=== PATIENT | female | born 1990 | race Caucasian/White ===

== ENCOUNTER 2020-01-17 21:41 | Emergency (ER) | payer OTHER, SELFPAY ==
[2020-01-17 21:56] VITALS: BP 93/72; PULSE 98; RESP 16; TEMP 36.6; O2SAT 98
--- NOTE | 2020-01-17 22:10 | ED_ITS ---
HPI - Skin/Abscess/Foreign Bdy General Chief complaint: Skin/Abscess/Foreign Body Stated complaint: ?INSECT BITE Time Seen by Provider: 01/17/20 22:09 Source: patient Mode of arrival: ambulatory Limitations: no limitations History of Present Illness HPI narrative: 29-year-old female presents with a bull's eye rash to the left calf. Rash started yesterday, is painful and growing in size. She did not find an insect or tick at the site But suspects that it could be an insect bite. She does not describe any injury, denies chest pain or pressure, palpitations, shortness breath, fevers, chills, any other concerning symptoms. MD complaint: rash and insect bite/sting Onset (ago): day(s) (1) Tetanus up to date: yes Location: LLE Severity: mild Severity scale (1-10): 3 Quality: aching Pain Consistency: constant Relieving factors: none Exacerbating factors: palpation and movement Associated symptoms: denies other symptoms Treatments prior to arrival: OTC topical medication and NSAID Related Data Previous Rx's Medication Instructions Recorded amoxicillin-pot clavulanate 1 tab PO Q12H 5 Days #10 tab 01/17/20 [Augmentin] doxycycline monohydrate 100 mg PO BID 14 Days #28 cap 01/17/20 Allergies Allergy/AdvReac Type Severity Reaction Status Date / Time No Known Allergies Allergy Unverified 12/13/19 17:29 Review of Systems Review of Systems: Constitutional: No Weight loss, No Fever, No Chills, No Night Sweats, No Fatigue, No Malaise ENT/Mouth: No Hearing loss, No Ear Pain, No Nasal Congestion, No Sinus Pain, No Hoarseness, No sore throat, No Rhinorrhea, No Swallowing Difficulty Eyes: No Eye Pain, No Swelling, No Redness, No Foreign Body, No Discharge, No Vision Changes Cardiovascular: No Chest Pain, No SOB, No Dyspnea on Exertion, No Orthopnea, No Edema, No Palpitations Respiratory: No Cough, No Sputum, No Wheezing, No Smoke Exposure, No Dyspnea Gastrointestinal: No Nausea, No Vomiting, No Diarrhea, No Constipation, No abdominal Pain, No Hematochezia, No Melena Genitourinary: no irregular bleeding, No Dysuria, No Urinary Frequency, No Hematuria, No Urinary Incontinence, No Urgency, No Flank Pain, No Urinary Flow Changes, No Hesitancy Musculoskeletal: No joint pain, No Myalgias, No Joint Swelling Skin: positive rash to her left lower extremity, No Skin Lesions Neuro: No Weakness, No Numbness, No Paresthesias, No Loss of Consciousness, No Dizziness, No Headache Psych: No Anxiety/Panic, No Depression, No SI/HI/AH/VH, No Social Issues Heme/Lymph: No Bruising, No Bleeding,No Lymphadenopathy Endocrine: No Polyuria, No Polydipsia, No Temperature Intolerance Yes all other systems are reviewed and are negative [facility] Past Medical History Attestation statement: The following information was validated with the patient. Surgical History Hx of section Hx of eye surgery Family History Family History Other No family history of breast cancer Social History Social History Smoking Status: Never smoker Use of substances other than those prescribed or required for medical reasons: No Advance Directives: No Physical Exam Vital Signs: Vital Signs: Vital Signs Temp Pulse Resp BP Pulse Ox 01/17/20 22:15 97.9 F 98 16 93/72 98 01/17/20 21:56 97.9 F 98 16 93/72 98 Body Mass Index 31.9 Appearance: Alert. Oriented X3. No acute distress. Eyes: Pupils equal, round and reactive to light. ENT: Pharynx normal. Neck: Normal inspection. Neck supple. CVS: Normal heart rate and rhythm. Pulses normal. Respiratory: No respiratory distress. Breath sounds normal. Abdomen: Soft and nontender. Skin: bull's-eye rash to left lower extremity approximately 10 cm in diameter. Otherwise all other Skin warm and dry. Normal skin color. Normal skin turgor. Extremities: No lower extremity edema. Neuro: No motor deficit. No sensory deficit. Course Course Course Narrative: patient has a bull's eyes rash, we will treat for suspected Lyme however she did not see a tick on her body. A bull's eye rash is classic for Lyme disease, we will cover with doxycycline and Augmentin. Patient does understand that if the rash gets worse that she should return to either her primary care physician or other healthcare provider for evaluation. She does understand the risks of doxycycline and sun exposure, patient verbalized understanding of and agrees to plan of care to discharge home. MDM - Skin/Abscess/Foreign Bdy Differential Diagnosis Differential diagnosis: Likely abscess of skin or subcutaneous tissue, urticaria, cellulitis, insect bites and contact dermatitis Medical Records Attestation: I reviewed the patient's medical records. Discharge Plan Discharge Clinical Impression: Cellulitis, Abscess of skin or subcutaneous tissue Patient Disposition: Home, Self-Care Instructions: Cellulitis (ED), Abscess (ED) Additional Instructions: please take antibiotics as prescribed. Doxycycline has a significant skin reaction with sun exposure. Please wear a hat, sunscreen, and long sleeves. If symptoms persist or wound gets larger or changes please return to the emergency department immediately. Thank you for choosing this emergency department for evaluation. Please follow-up with primary care physician as needed. Return to the emergency department for any new, concerning, or worsening symptoms. Prescriptions: New doxycycline monohydrate 100 mg capsule 100 mg PO BID 14 Days Qty: 28 RF: 0 amoxicillin-pot clavulanate [Augmentin] 875-125 mg tablet 1 tab PO Q12H 5 Days Qty: 10 RF: 0 Interventions: ED Discharge Assessment Last Done: 01/17/20 22:33 Discharge Date/Time: 01/17/20 22:38
[2020-01-17 22:15] VITALS: BP 93/72; PULSE 98; RESP 16; TEMP 36.6; O2SAT 98; BMI 31.9
[2020-01-17] MEDS: Amoxicillin/Potassium Clav 875 MG TABLET PO (22:33)
== END 2020-01-17 22:38 | disposition home or self-care (01) ==
PROVIDERS: Emergency Provider Emergency Medicine; PCP Internal Medicine
DX: L03.116 Cellulitis of left lower limb (principal); M79.605 Pain in left leg; Z79.899 Other long term (current) drug therapy
CPT/HCPCS: 99283

== ENCOUNTER 2020-09-24 16:37 | Outpatient (REF) | payer OTHER, SELFPAY ==
[2020-09-24 17:48] LABS: Glucose Urine UA NEG (NEG); Leukocyte Esterase Urine 1+ (NEG); Nitrite Urine NEG (NEG); UACC Culture Trigger YES; Urine Blood 2+ (NEG); Urine Ketones NEG (NEG); Urine Protein 1+ MG/DL (NEG-TRACE)
[2020-09-24 17:51] LABS: Color Urine YELLOW
[2020-09-24 17:52] LABS: Appearance Urine HAZY
[2020-09-24 18:10] LABS: Bacteria Urine TRACE /LPF; Mucus Urine TRACE /LPF; Renal Epithelial Cells Urine TRACE /LPF; Squamous Epithelial Cell Urine TRACE /LPF
== END 2020-09-24 16:38 | disposition home or self-care (01) ==
LOC: HO.LAB 16:37
PROVIDERS: Internal Medicine; PCP Internal Medicine; Visit Provider Internal Medicine
DX: R35.0 Frequency of micturition (principal)
CPT/HCPCS: 81001; 81003; 87086

== ENCOUNTER 2021-06-23 08:52 | Emergency (ER) | payer OTHER, SELFPAY ==
--- NOTE | ~2021-06-23 | XR_ITS ---
EXAMINATION: XR KNEE, LEFT CLINICAL INFORMATION: Injured knee on a trampoline COMPARISON: None TECHNIQUE: Four views of the left knee. FINDINGS: Bone alignment is normal. No fracture or dislocation is seen. Joint spaces are normal. There is a moderate-sized joint effusion. XR/XR knee LT 4V IMPRESSION: Moderate-size joint effusion.
[2021-06-23 09:47] VITALS: BP 107/71; PULSE 95; RESP 18; O2SAT 100; BMI 28.8
--- NOTE | 2021-06-23 11:53 | ED_ITS ---
HPI - Extremity Injury (Lower) General Chief Complaint: Extremity Injury, Lower Stated Complaint: knee INJ Time Seen by Provider: 06/23/21 11:44 Source: patient Mode of arrival: wheelchair Limitations: no limitations History of Present Illness HPI Narrative: Patient is a 31-year-old female with past medical history of hyperthyroidism, migraines, obesity. She presents emergency department today for evaluation of left knee pain. [place] are [place] [employer] [place] she was jumping and felt that her knee buckled and she fell. States that since she has been unable to really bear weight on her left leg, her left knee is swollen and feels like it is going to pop. She has not taken anything yet for the pain. Denies any past injury of the knee. Related Data Home Medications Medication Instructions Recorded Confirmed amoxicillin 500 mg capsule 500 mg PO Q8H 04/21/20 04/21/20 levonorgestrel 20 mcg/24 hours (7 1 device INTRAUTERINE ONCE ea 04/21/20 04/21/20 yrs) 52 mg intrauterine device Previous Rx's Medication Instructions Recorded amoxicillin 875 mg tablet 875 mg PO BID 10 Days #20 tab 05/01/20 naproxen 500 mg tablet 500 mg PO BID PRN 10 Days tab 06/23/21 oxycodone 5 mg capsule 5 mg PO Q8H PRN #10 cap 06/23/21 Allergies Allergy/AdvReac Type Severity Reaction Status Date / Time No Known Allergies Allergy Verified 04/21/20 14:04 Review of Systems Review of Systems: Constitutional: No weight loss, fever, chills, weakness or fatigue. Skin: No rash or itching. Cardiovascular: No chest pain, chest pressure or chest discomfort. No palpitations or pedal edema. Respiratory: No shortness of breath, cough or sputum production. Gastrointestinal: No anorexia, nausea, vomiting or diarrhea. No abdominal pain or blood in stool. Genitourinary: No burning micturition. No urinary frequency or incontinence. Musculoskeletal: Left knee pain, swelling, stiffness Psychiatric: No depression or anxiety. Yes all other systems are reviewed and are negative PMFSH Past Medical History Attestation statement: The following information was validated with the patient. Source: old records reviewed Medical History Attention deficit hyperactivity disorder (ADHD) Closed fracture of tooth Hyperthyroidism Migraine Obesity (BMI 30-39.9) Surgical History Hx of section Hx of eye surgery Family History Family History Father Hypertension HIV (human immunodeficiency virus infection) Chronic mental illness Diabetes Mother Hypertension Chronic mental illness Depression with anxiety Maternal Grandmother Hypertension Arthritis Maternal Grandfather Hypertension Myocardial infarction Paternal Grandmother Diabetes Osteoporosis Paternal Grandfather Hypertension Alzheimers disease Other No family history of breast cancer Social History Social History Alcohol intake: former Advance Directives: No Advance Directives Information Provided: No Patient : No Physical Exam Vital Signs: Vital Signs: Last Vital Signs Pulse 95 06/23/21 09:47 Resp 18 06/23/21 09:47 BP 107/71 06/23/21 09:47 Pulse Ox 100 06/23/21 09:47 BMI result Body Mass Index 28.8 Vital signs have been reviewed as normal and appeared to be correct. Blood pressure normal.? Heart rate normal.? Respiration rate normal. Temperature normal.? Oxygen saturation normal. Appearance: Alert.?Oriented to person, place and time. No acute distress.?Normal affect. Eyes: Pupils equal, round and reactive to light.? ENT: Pharynx normal.?? Neck: Normal inspection.? Neck supple.?? CVS: Heart sounds normal. Normal heart rate and rhythm.? Pulses normal.?? Respiratory: No respiratory distress.? Lung sounds clear to auscultation bilaterally?? Abdomen: Soft and non-tender. Skin: Skin warm and dry.? Normal skin color.? ?? Extremities/ MSK: Effusion present to left knee, diffuse tenderness of the leg, palpable 2+ DP/PT pulse. Difficulty examining stability of the knee with maneuvers due to pain and swelling. Neuro: Moves all extremities spontaneously. Sensation intact bilaterally. No focal neuro deficits. Ambulates with normal steady gait. Course Course Course Narrative: Patient is a 31-year-old female being evaluated for left knee pain and swelling after a fall. There was difficulty obtaining the left knee for stability within overs due to the amount pain and swelling. Upon attempting to ambulate she is very hesitant to bear weight. Decreased AROM to left knee. XR of the knee obtained in addition to triage reveals a moderate-sized joint effusion no fracture or dislocation. Patient provided with naproxen and Tylenol for pain. Discussed results. Will apply [place] bandage for compression, knee immobilizer, and use of crutches. Cannot exclude ligament, meniscus, or tendon injury, based on exam do not suspect muscle rupture. Patient to follow-up outpatient with Orthopedic, provided with a work note for 1 week. Naproxen and oxycodone for pain management, rest, ice, compression, elevation. Discussed reasons to return back to the emergency department. Patient is agreeable with plan of care. MDM - Extremity Injury (Lower) Medical Records Attestation: I reviewed the patient's medical records. Imaging Data XR left knee: Radiologist's impression: FINDINGS: Bone alignment is normal. No fracture or dislocation is seen. Joint spaces are normal. There is a moderate-sized joint effusion.? XR/XR knee LT 4V IMPRESSION: Moderate-size joint effusion. Discharge Plan Discharge Clinical Impression: Effusion of knee joint Patient Disposition: Home, Self-Care Instructions: Swollen Knee Joint (ED) Additional Instructions: The x-ray of your left knee does not indicate any fracture or dislocation. There is a joint effusion present. Please keep the [place] wrap in place for compression, use the knee immobilizer with crutches. Weightbearing as tolerate d. Use naproxen twice daily as needed for pain, if the naproxen is not helping you may use oxycodone. Please use caution when taking oxycodone as it is a narcotic medication, it can be addicting, it may make you drowsy therefore you should not drive or work while taking this medication. Please contact Orthopedics to schedule a follow-up visit in 2-5 days. You may return to the emergency department with any new or worsening symptoms or concerns. Prescriptions: New naproxen 500 mg tablet 500 mg PO BID PRN (Reason: pain) 10 Days 0RF oxycodone 5 mg capsule 5 mg PO Q8H PRN (Reason: pain) Qty: 10 0RF Rx Instructions: Patient may partially fill upon request No Action amoxicillin 500 mg capsule 500 mg PO Q8H 0RF levonorgestrel 20 mcg/24 hours (6 yrs) 52 mg intrauterine device 1 device intrauterine ONCE 0RF amoxicillin 875 mg tablet 875 mg PO BID 10 Days Qty: 20 0RF Referrals: Nancy Parekh PA-C [Physician Compression Molding Machine Tender] - 2 days Stand Alone Forms: Work/School Release Interventions: ED Discharge Assessment Last Done: 06/23/21 13:03 Discharge Date/Time: 06/23/21 13:03
[2021-06-23] MEDS: NaPROXEN 500 MG TABLET PO (12:04)
[2021-06-23] MEDS: Acetaminophen 325 MG TABLET 975 MG PO (12:05)
== END 2021-06-23 13:03 | disposition home or self-care (01) ==
PROVIDERS: Emergency Provider Emergency Medicine; PCP Internal Medicine
DX: M25.462 Effusion, left knee (principal); M25.562 Pain in left knee
CPT/HCPCS: 73564; 99283

== ENCOUNTER 2021-06-30 08:46 | Outpatient (REF) | payer OTHER, SELFPAY ==
--- NOTE | ~2021-06-30 | XR_ITS ---
EXAMINATION: LEFT KNEE CLINICAL INFORMATION: Pain COMPARISON: None TECHNIQUE: A single sunrise view. FINDINGS: A single sunrise view of the left knee reveals midline patella without any bony erosive changes. No visible acute fracture or dislocation. No loose body seen. XR/XR knee LT 1V IMPRESSION: Unremarkable sunrise view left knee.
== END 2021-06-30 08:47 | disposition home or self-care (01) ==
LOC: HO.HOSX 08:46
PROVIDERS: PCP Internal Medicine; Visit Provider Physician Assistant
DX: M25.462 Effusion, left knee (principal)
CPT/HCPCS: 20610; 73560; 99202

== ENCOUNTER → 2021-07-07 11:34 | Outpatient (BNVA) | payer OTHER, SELFPAY | PROVIDERS: PCP Internal Medicine; Visit Provider Physician Assistant | DX: M23.92 Unspecified internal derangement of left knee (principal) | CPT/HCPCS: 99212 ==

== ENCOUNTER 2021-07-27 09:29 | Outpatient (REF) | payer OTHER, SELFPAY ==
[2021-07-27 16:06] LABS: CT PCR NOT DETECTED (Not Detect.); NG PCR NOT DETECTED (Not Detect.)
[2021-07-28 10:50] LABS: BV Int Neg Control Negative (Negative); BV Int Pos Control Positive (Positive)
== END 2021-07-27 09:30 | disposition home or self-care (01) ==
LOC: HO.LAB 09:29
PROVIDERS: PCP Internal Medicine; Visit Provider Advanced Practice Midwife
DX: N89.8 Other specified noninflammatory disorders of vagina (principal); N92.1 Excessive and frequent menstruation with irregular cycle; Z97.5 Presence of (intrauterine) contraceptive device
CPT/HCPCS: 87480; 87491; 87510; 87591; 87660; 99212

== ENCOUNTER 2021-08-10 11:26 | Outpatient (REF) | payer OTHER, SELFPAY ==
--- NOTE | ~2021-08-10 | MR_ITS ---
EXAMINATION: MR KNEE WITHOUT CONTRAST, LEFT CLINICAL INFORMATION: Left knee pain following an injury on 06/23/2021. Evaluate for an anterior cruciate ligament injury. COMPARISON: Left knee radiographs dated 06/23/2021 and 06/30/2021. TECHNIQUE: MRI of the knee without contrast was performed using routine sequences on a high-field scanner. FINDINGS: MENISCI: Medial Meniscus: Nondisplaced oblique tibial articular surface tear of the posterior body and posterior horn. Lateral Meniscus: Intact. LIGAMENTS: Cruciate: Complete tear of the anterior cruciate ligament with anterior displacement of the distal ligament fibers. Intact posterior cruciate ligament. Collateral: Minimal edema adjacent to the medial collateral ligament consistent with a grade 1 sprain. Intact fibular collateral ligament. EXTENSOR MECHANISM: Intact. ARTICULAR CARTILAGE/BONE: Patellofemoral Compartment: Normal. Medial Compartment: Focal marrow edema within the posterior aspect of the medial tibial plateau consistent with a minimal osseous contusion. Lateral Compartment: Intact articular cartilage. Marrow edema at the sulcus terminalis and posterior lateral tibial plateau consistent with osseous contusions. JOINT FLUID AND BURSAE: Moderate joint effusion. MR/MR knee LT wo con IMPRESSION: 1. Complete tear of the anterior cruciate ligament with distal displacement of the anterior ligament fibers. 2. Grade 1 sprain of the medial collateral ligament. 3. Nondisplaced oblique tibial articular surface tear of the medial meniscus posterior horn and body. 4. Osseous contusions at the sulcus terminalis as well as at the posterior aspect of the lateral tibial plateau as well as, to a lesser degree, at the medial tibial plateau. Moderate joint effusion.
== END 2021-08-10 11:27 | disposition home or self-care (01) ==
LOC: HO.MRI 11:26
PROVIDERS: Visit Provider Physician Assistant
DX: S83.512A Sprain of anterior cruciate ligament of left knee, initial encounter (principal); M23.92 Unspecified internal derangement of left knee
CPT/HCPCS: 73721

== ENCOUNTER 2021-08-14 10:30 | Outpatient (REF) | payer OTHER, SELFPAY ==
[2021-08-14 17:12] LABS: CT PCR NOT DETECTED (Not Detect.); NG PCR NOT DETECTED (Not Detect.)
[2021-08-15 13:51] LABS: BV Int Neg Control Negative (Negative); BV Int Pos Control Positive (Positive)
== END 2021-08-14 10:31 | disposition home or self-care (01) ==
LOC: HO.LAB 10:30
PROVIDERS: PCP Internal Medicine; Visit Provider Advanced Practice Midwife
DX: N92.1 Excessive and frequent menstruation with irregular cycle (principal); N76.0 Acute vaginitis; B96.89 Other specified bacterial agents as the cause of diseases classified elsewhere; Z97.5 Presence of (intrauterine) contraceptive device
CPT/HCPCS: 87480; 87491; 87510; 87591; 87660; 99212

== ENCOUNTER → 2021-08-17 13:32 | Outpatient (BNVA) | payer OTHER, SELFPAY | PROVIDERS: PCP Internal Medicine; Visit Provider Orthopaedic Surgery | DX: S83.207D Unspecified tear of unspecified meniscus, current injury, left knee, subsequent encounter (principal); S83.512D Sprain of anterior cruciate ligament of left knee, subsequent encounter | CPT/HCPCS: 99202 ==

== ENCOUNTER 2021-10-05 10:26 | Outpatient (REF) | payer OTHER, SELFPAY ==
[2021-10-05 12:17] LABS: HBc Num1 0.06 S/CO (0.00-0.79); HIV AB/AG Nonreactive (Nonreactive); HIV Num 1 0.09 S/CO (0.00-0.99); Hepatitis B Core Antibody Nonreactive (Nonreactive); ~HepC Num1 0.07 S/CO (0.00-0.79); ~Hepatitis C Antibody Nonreactive (Nonreactive)
[2021-10-05 12:36] LABS: Syphilis Screen Nonreactive (Nonreactive)
[2021-10-05 15:06] LABS: CT PCR NOT DETECTED (Not Detect.); NG PCR NOT DETECTED (Not Detect.)
[2021-10-06 12:27] LABS: BV Int Neg Control Negative (Negative); BV Int Pos Control Positive (Positive)
== END 2021-10-05 10:27 | disposition home or self-care (01) ==
LOC: HO.LAB 10:26
PROVIDERS: PCP Internal Medicine; Visit Provider Advanced Practice Midwife
DX: Z01.419 Encounter for gynecological examination (general) (routine) without abnormal findings (principal); R10.2 Pelvic and perineal pain; N89.8 Other specified noninflammatory disorders of vagina; Z11.3 Encounter for screening for infections with a predominantly sexual mode of transmission; Z11.8 Encounter for screening for other infectious and parasitic diseases; Z11.4 Encounter for screening for human immunodeficiency virus [HIV]; Z11.59 Encounter for screening for other viral diseases
CPT/HCPCS: 36415; 86704; 86780; 86803; 87389; 87480; 87491; 87510; 87591; 87660; 88142

== ENCOUNTER 2022-01-28 14:26 | Outpatient (REF) | payer OTHER, SELFPAY ==
--- NOTE | ~2022-01-28 | US_ITS ---
EXAMINATION: US PELVIS AND TRANSVAGINAL CLINICAL INFORMATION: Right lower quadrant pain. IUD placement March 2021. Unknown last menstrual period. COMPARISON: CT scan abdomen and pelvis 09/01/2015, ultrasound 12/09/2014. TECHNIQUE: Transabdominal and transvaginal ultrasound images were obtained of the pelvis. FINDINGS: The uterus is heterogeneous and measures 10.6 x 4.4 x 4.8 cm. No discrete fibroids are identified. IUD was best visualized on transabdominal images and is in place within the endometrial cavity. The IUD was difficult to assess on transvaginal images due to uterine positioning and body habitus. No significant free fluid. Bilateral ovaries were seen only on transabdominal ultrasound images and are grossly unremarkable. Right ovary measures 4.6 x 1.9 x 3.0 cm, volume 13.7 mL. Left ovary measures 2.4 x 1.1 x 2.7 cm, volume 3.7 mL. US/US pelvic and transvaginal IMPRESSION: IUD appears to be located within the endometrial cavity on transabdominal ultrasound images, but was difficult to assess on transvaginal ultrasound images due to uterine positioning. Bilateral ovaries were seen only on limited transabdominal ultrasound images and are grossly unremarkable. Ovaries were not seen on transvaginal ultrasound images. Endometrial thickness could not be assessed due to artifact from IUD and limited visualization as detailed above.
== END 2022-01-28 14:27 | disposition home or self-care (01) ==
LOC: HO.HMGCX 14:26
PROVIDERS: PCP Internal Medicine; Visit Provider Advanced Practice Midwife
DX: R10.2 Pelvic and perineal pain (principal)
CPT/HCPCS: 76830; 76856

== ENCOUNTER → 2022-02-08 13:15 | Outpatient (BNVA) | payer OTHER, SELFPAY | PROVIDERS: PCP Internal Medicine; Visit Provider Advanced Practice Midwife | DX: Z71.2 Person consulting for explanation of examination or test findings (principal); R10.2 Pelvic and perineal pain; N89.8 Other specified noninflammatory disorders of vagina | CPT/HCPCS: 99212 ==

== ENCOUNTER 2022-03-28 22:17 | Emergency (ER) | payer OTHER, SELFPAY ==
[2022-03-28 22:30] VITALS: BP 114/63; PULSE 82; RESP 16; TEMP 36.9; O2SAT 99; BMI 32.1
--- NOTE | 2022-03-28 22:39 | ED_ITS ---
HPI - Allergic Reaction General Chief complaint: Allergic Reaction Stated complaint: hives on face ? med allergy Time Seen by Provider: 03/28/22 22:38 Source: patient Mode of arrival: ambulatory Limitations: no limitations History of Present Illness HPI narrative: 31 yo female presents to the ER for evaluation of hives on her face after starting flagyl today for presumed BV. She states she has a history of BV in the past and was on flagyl for it. She had left over antibiotic and started it this morning when she noticed her urine smelt like it did last time she had bacterial vaginosis. She denies any abnormal vaginal discharge, pelvic pain, N/V or abdominal pain. She reports shortly after taking the flagyl she developed red, hot, itchy patches on her face. She states initially it felt like her throat was tight but that is now improved. She took a nap this afternoon and woke up with slightly worsening rash so she came to the ER for further evaluation. No history of allergic reactions of any kind in the past. MD complaint: allergic reaction, hives and facial swelling Onset (ago): hour(s) Exposure: medication Symptoms: rash, itching and facial swelling Severity: moderate Treatment prior to arrival: none Previous Allergic Reaction History: none Related Data Home Medications Medication Instructions Recorded Confirmed levonorgestrel 20 mcg/24 hours (8 1 device intrauterine ONCE 04/21/20 08/14/21 yrs) 52 mg intrauterine device Previous Rx's Medication Instructions Recorded metronidazole 500 mg tablet 500 mg PO Q12H 7 days #14 tabs 02/08/22 diphenhydramine HCl 25 mg capsule 50 mg PO TID PRN allergic reaction 03/28/22 (Benadryl) #30 caps nitrofurantoin 100 mg PO Q12H 5 days #10 caps 03/28/22 monohydrate/macrocrystals 100 mg capsule (Macrobid) prednisone 20 mg tablet 40 mg PO DAILY #6 tabs 03/28/22 Allergies Allergy/AdvReac Type Severity Reaction Status Date / Time No Known Allergies Allergy Verified 02/08/22 13:20 Review of Systems Review of Systems: Yes all other systems are reviewed and are negative [facility] Past Medical History Medical History Attention deficit hyperactivity disorder (ADHD) Closed fracture of tooth Hyperthyroidism Migraine Obesity (BMI 30-39.9) Surgical History Hx of section Hx of eye surgery Family History Family History Father Hypertension HIV (human immunodeficiency virus infection) Chronic mental illness Diabetes Mother Hypertension Chronic mental illness Depression with anxiety Maternal Grandmother Hypertension Arthritis Maternal Grandfather Hypertension Myocardial infarction Paternal Grandmother Diabetes Osteoporosis Paternal Grandfather Hypertension Alzheimers disease Other No family history of breast cancer Social History Social History Alcohol intake: former Advance Directives: No Advance Directives Information Provided: No Current occupational status: employed 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 Oriented X3. No acute distress. Head/face: patchy, erythematous warm and slightly raised patches scattered all over the face. Eyes: Pupils equal, round and reactive to light. ENT: Pharynx normal. no swelling of the lips or tongue. handling secretions normally. airway patent. Neck: Normal inspection. Neck supple. no neck swelling CVS: Normal heart rate and rhythm. Pulses normal. Respiratory: No respiratory distress. Breath sounds normal. Abdomen: Soft and nontender. +BS x4 Pelvic: normal external inspection, no lesions. Normal vaginal canal with trace thin, white vaginal discharge, normal appearing cervix. Nontender. Skin: Skin warm and dry. Normal skin color. Normal skin turgor. No rashes. Extremities: Normal inspection x4 no rash on her extremities Neuro: Oriented X 3. nonfocal Course Course Course Narrative: 31 yo female presenting to the ER for hives on her face after taking flagyl earlier today for possible BV. No airway involvement. Will give PO benadryl, prednisone and claritin and reassess. will do pelvic exam and assess for BV. will check UA and Upreg. Reevaluation(s) Reevaluation #1: pelvic with minimal vaginal discharge, doubt BV. Advised to stop Flagyl. UA is positive for infection. Will treat with Macrobid. Facial rash is slightly improved. Will discharge with few more days of prednisone and Benadryl for allergic reaction. Patient stable for discharge home, questions were answered. Medications Administered Discontinued Medications Generic Name Dose Route Start Last Admin Trade Name Lemeul PRN Reason Stop Dose Admin Diphenhydramine HCl 50 mg 03/28/22 22:46 03/28/22 22:57 Diphenhydramine Hcl 25 Mg Capsule PO 03/28/22 22:47 50 mg ONCE ONE Administration Famotidine 20 mg 03/28/22 22:46 03/28/22 22:57 Famotidine 20 Mg Tablet PO 03/28/22 22:47 20 mg ONCE ONE Administration Prednisone 50 mg 03/28/22 22:46 03/28/22 22:57 Prednisone 10 Mg Tablet PO 03/28/22 22:47 50 mg ONCE ONE Administration Medical Decision Making Differential Diagnosis Differential Diagnoses: The differential diagnosis associated with the presentation includes Allergic reaction, angioedema, eczema, urticaria, BV, PID, UTI, Lab Data MDM Lab Attestation statement: I reviewed the patient's lab results. Labs: Lab Results 03/28/22 03/28/22 Range/Units 23:20 23:20 Urine Color Yellow Urine Appearance Cloudy Urine pH 7.0 (5.0-9.0) Ur Specific [place] 1.015 (1.005-1.025) Urine Protein Negative (Neg-Trace) mg/dL Urine Glucose (UA) Negative (Negative) mg/dL Urine Ketones Negative (Negative) mg/dL Urine Blood Trace H (Negative) Urine Nitrite Negative (Negative) Ur Leukocyte Esterase Large (3+) H (Negative) Urine Test NEGATIVE (NEGATIVE) External Record Review External record reviewed: Office record Prescription Management I considered prescription management with: Antibiotic UA consistent with infection, will treat with Macrobid. Will stop Flagyl as she does not have an examination consistent with BV. Critical Care Time Critical Care Time Critical Care Time: No Discharge Plan Discharge Clinical Impression: Allergic reaction, UTI (urinary tract infection) Patient Disposition: Home, Self-Care Instructions: Urinary Tract Infection in Women (ED), General Allergic Reaction (ED) Additional Instructions: Your urine test showed UTI Take the prescribed antibiotic for this, complete the entire course and do no miss any doses. Drink plenty of water No sexual activity until you have complete antibiotics and all symptoms are resolved. STOP FLAGYL Take the prescribed steroid as directed Take Benadryl as directed every 6-8 hours until rash is completely resolved. Follow up with your PCP. If you develop new or worsening symptoms call 911 or come back to the ER for further evaluation. If your BV panel comes back positive we will call you, if you don't hear from us it is negative. Prescriptions: New nitrofurantoin monohyd/m-cryst [Macrobid] 100 mg capsule 100 mg PO Q12H 5 Days Qty: 10 0RF Rx Instructions: must administer with a meal/food prednisone 20 mg tablet 40 mg PO DAILY Qty: 6 0RF diphenhydramine HCl [Benadryl] 25 mg capsule 50 mg PO TID PRN (Reason: allergic reaction) Qty: 30 0RF No Action levonorgestrel 20 mcg/24 hours (6 yrs) 52 mg intrauterine device 1 device intrauterine ONCE metronidazole 500 mg tablet 500 mg PO Q12H 7 Days Qty: 14 0RF
[2022-03-28] MEDS: diphenhydrAMINE HCL 25 MG CAPSULE 50 MG PO (22:57)
[2022-03-28] MEDS: predniSONE 10 MG TABLET 50 MG PO (22:57)
[2022-03-28] MEDS: Famotidine 20 MG TABLET PO (22:57)
--- NOTE | 2022-03-28 23:10 | PC.NURSE ---
report given to Francisco RN
[2022-03-28 23:28] LABS: Appearance Urine Cloudy; Color Urine Yellow; Glucose Urine UA Negative (Negative); Leukocyte Esterase Urine Large (3+) (Negative); Nitrite Urine Negative (Negative); Specific Gravity - Urine 1.015 (1.005-1.025); UMIC TRIGGER UACC YES; Urine Blood Trace (Negative); Urine Ketones Negative (Negative); Urine Protein Negative (Neg-Trace)
[2022-03-28 23:45] LABS: UPreg QC Valid YES; Urine Pregnancy NEGATIVE (NEGATIVE)
[2022-03-28 23:57] LABS: Bacteria Urine 4+ (None Seen); Hyaline Casts Urine 0-2 /LPF (0-2); RBC Urine 0-2 /HPF (0-2); Squamous Epithelial Cell Urine 0-2 /HPF (0-2); UACC Culture Trigger YES; WBC Urine >50 /HPF (0-5)
[2022-03-29 00:15] VITALS: RESP 16
--- NOTE | 2022-03-29 00:16 | PC.NURSE ---
pt a&o, no sob or chest pain, pt able to speak in full sentences. Reviewed medication and discharge instructions, pt verbalized under standing.
[2022-03-29 12:29] LABS: BV Int Neg Control Negative (Negative); BV Int Pos Control Positive (Positive)
== END 2022-03-29 00:21 | disposition home or self-care (01) ==
PROVIDERS: Physician Assistant; Emergency Provider Internal Medicine; PCP Internal Medicine
DX: L50.0 Allergic urticaria (principal); N39.0 Urinary tract infection, site not specified; Z79.899 Other long term (current) drug therapy
CPT/HCPCS: 81001; 81025; 87086; 87088; 87186; 87480; 87510; 87660; 99283; 99284

== ENCOUNTER 2022-05-20 17:08 | Outpatient (REF) | payer OTHER, SELFPAY ==
[2022-05-21 11:12] LABS: BV Int Neg Control Negative (Negative); BV Int Pos Control Positive (Positive)
== END 2022-05-20 17:09 | disposition home or self-care (01) ==
LOC: HO.LNP 17:08
PROVIDERS: Visit Provider Nurse Practitioner Family
DX: N89.8 Other specified noninflammatory disorders of vagina (principal)
CPT/HCPCS: 87480; 87510; 87660

== ENCOUNTER 2022-10-07 15:05 | Outpatient (AMB) | payer OTHER, SELFPAY ==
--- NOTE | 2022-10-07 15:18 | MHC.OFFVIS ---
Intake Vital Signs 10/07/22 15:24 Height 5 ft 4 in Weight 203 lb BMI 34.8 BP 106/60 Intake Visit Reasons: IMPROVEMENT LEAD annual exam Intake Note: The patient agreed to use of a medical charge entry specialist during this encounter. Scribed for LLUVIA Curry by Donna Ingram medical charge entry specialist, on 10/07/2022 at 3:33 pm EST. Information Systems Planner: Information Systems Planner Present (Rabia) Allergies metronidazole Adverse Reaction (Severe, Verified 10/07/22 15:25) hives HPI HPI Comments History of Present Illness Details She is a premenopausal woman presenting for annual exam. States she missed her Urologist appointment for recurrent UTI's. Admits to frequent urination today. Interested in removing IUD due to her frequent BV episodes. She admits to eating healthy and tries to stay active with exercise. Currently not sexually active. Denies vaginal itching and irritation. STD screening offered; she declines. Denies family hx of breast, colon and ovarian cancer. Last pap smear 10/05/21. PFS Medical History Attention deficit hyperactivity disorder (ADHD) Cellulitis Closed fracture of tooth Frequency of urination Hyperthyroidism Migraine Obesity (BMI 30-39.9) Surgical History Hx of section Hx of eye surgery Family History Father Hypertension HIV (human immunodeficiency virus infection) Chronic mental illness Diabetes Mother Hypertension Chronic mental illness Depression with anxiety Maternal Grandmother Hypertension Arthritis Maternal Grandfather Hypertension Myocardial infarction Paternal Grandmother Diabetes Osteoporosis Paternal Grandfather Hypertension Alzheimers disease Other No family history of breast cancer Social History Alcohol intake: former Patient Tobacco Use Status: Never used Tobacco Current occupational status: employed 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 Cognitive needs: No Hearing needs: No Vision needs: No Female Reproductive History Menstrual Age of Menarche: 13 control method: progestin IUCD (Mirena 10/2019; IUD strings present 10/07/2022) Total pregnancies: 4 Full term: 3 Number of Living Children: 3 Date of last pap smear: 10/05/21 (neg) Physical Exam Vital Signs: Last Vital Signs BP 106/60 10/07/22 15:24 BMI result Body Mass Index 34.8 Const General: cooperative, healthy appearing, no acute distress, well developed and alert Orientation/consciousness: patient oriented x3 HEENT Head: Yes normal to inspection Eyes General: appearance normal, both eyes and all related structures Neck Neck: Yes normal visual inspection Thyroid: Thyroid normal Chest Chest palpation & inspection: normal inspection of the chest Breast/axilla inspection: normal inspection of the breasts (no puckering, dimpling, peau de orange, retraction, discharge, masses) Breast/axilla palpation: normal palpation of the breasts Resp Effort & Inspection: normal respiratory effort GI Inspection: Yes normal to inspection Palpation (GI): Soft to palpation (to palpation) Rectal Exam - Female: deferred General: Yes bladder normal to inspection External Female Exam: normal external appearance and normal appearance of the urethra Speculum Exam - Vagina: normal appearance of the vagina, normal palpation and abnormal vaginal discharge (thick ) white and frothy Speculum Exam - Cervix: normal appearance of the cervix, normal palpation and Other cervical findings present (IUD strings present) Bimanual exam- vagina & uterus: normal palpation and normal palpation Bimanual Exam- Adnexa, other: normal adnexae and no masses Skin General skin exam: no rashes or lesions noted Neuro General: patient oriented x3 Cognition (Neuro): normal cognition Extrem General: Yes normal to inspection Psych Attitude: cooperative Thought process: Normal thought process present Thought content: Normal thought content present Results AMB Urinalysis, Automated UA Leukoctes 3 Katelynn/uL Last Edit by MATTHIEU Yepez on 10/07/22 15:33 UA Nitrite Positive Last Edit by MATTHIEU Yepez on 10/07/22 15:33 UA Urobilinogen 0 mg/dL Last Edit by MATTHIEU Yepez on 10/07/22 15:33 UA Protein 0 mg/dL Last Edit by MATTHIEU Yepez on 10/07/22 15:33 UA pH 6.0 Last Edit by MATTHIEU Yepez on 10/07/22 15:33 UA Blood 0.5 Blane/uL Last Edit by MATTHIEU Yepez on 10/07/22 15:33 UA Specific [place] 1.015 Last Edit by Marta GILDA MaresA on 10/07/22 15:33 UA Ketone Negative Last Edit by Marta MATTHIEU Mares on 10/07/22 15:33 UA Bilirubin 0 mg/dL Last Edit by Marta Sarita Nagel RMA on 10/07/22 15:33 UA Glucose 0 mg/dL Last Edit by Marta Nagel A on 10/07/22 15:33 Results Reviewed Results Reviewed: Laboratory Last Values Urine pH (Auto) 6.0 10/07/22 15:31 Specific [place] (Auto) 1.015 10/07/22 15:31 Urine Protein (Auto) 0 mg/dL 10/07/22 15:31 Glucose (UA)(Auto) 0 mg/dL 10/07/22 15:31 Urine Ketones (Auto) Negative 10/07/22 15:31 Urine Blood (Auto) 0.5 Blane/uL 10/07/22 15:31 Urine Nitrite (Auto) Positive 10/07/22 15:31 Urine Bilirubin (Auto) 0 mg/dL 10/07/22 15:31 Urine Urobilinogen (Auto) 0 mg/dL 10/07/22 15:31 Leukocyte Esterase (Auto) 3 Katelynn/uL 10/07/22 15:31 Assessment & Plan Assessment & Plan (1) Encounter for well woman exam: Code(s): Z01.419 - Encounter for gynecological examination (general) (routine) without abnormal findings Plan: Discussed: Current recommendations for pap smears per ASCCP guidelines Breast awareness and periodic self breast exams. Maintaining a healthy lifestyle including a well balanced diet and routine exercise. Advised to hydrate well with water and cranberry juice. Boric acid protocol to prevent recurrent BV. BV testing done today. Await results and treat accordingly. Report to ED if experience fever/ flu-like symptoms or flank pain. RX sent to pharmacy for BV due to symptoms and hx. and UTI Rx. Schedule appointment for IUD removal consult, encouraged to try the Boric Acid for 6months first. Removing the IUD may not resolved frequent BV episodes. All of her questions and concerns were addressed to the best of my ability. RTO in one year for AG. (2) Frequency of urination: Code(s): R35.0 - Frequency of micturition Orders: Orders Urine Culture Today N39.0 - Urinary tract infection, site not specified, R30.0 - Dysuria Bacterial Vaginosis Panel Today N89.8 - Other specified noninflammatory disorders of vagina AMB Urinalysis Automated Today N39.0 - Urinary tract infection, site not specified, R30.0 - Dysuria Pap Smear Today Z01.419 - Encounter for gynecological examination (general) (routine) without abnormal findings Medications: New sulfamethoxazole-trimethoprim 800-160 mg (Bactrim DS) 1 tab PO BID 3 days 6 tabs 0RF clindamycin phosphate 2% for 7 days 1 appful vaginal BEDTIME 7 days 5 grams 0RF Coding Level of Care Code Est Pt Prev Care 18-39y(09340) Diagnoses Encounter for well woman exam Z01.419 Frequency of urination R35.0
[2022-10-07 15:24] VITALS: BP 106/60; BMI 34.8
== END 2022-10-08 07:21 | disposition home or self-care (01) ==
LOC: HO.HWS 15:05
PROVIDERS: PCP Internal Medicine; Visit Provider Advanced Practice Midwife
DX: Z01.419 Encounter for gynecological examination (general) (routine) without abnormal findings (principal); N39.0 Urinary tract infection, site not specified; R30.0 Dysuria; R35.0 Frequency of micturition
CPT/HCPCS: 99395

== ENCOUNTER 2022-10-07 15:05 | Outpatient (REF) | payer OTHER, SELFPAY ==
[2022-10-08 12:44] LABS: BV Int Neg Control Negative (Negative); BV Int Pos Control Positive (Positive)
== END 2022-10-07 15:06 | disposition home or self-care (01) ==
LOC: HO.LAB 15:05
PROVIDERS: PCP Internal Medicine; Visit Provider Advanced Practice Midwife
DX: N39.0 Urinary tract infection, site not specified (principal); R30.0 Dysuria; N89.8 Other specified noninflammatory disorders of vagina; R35.0 Frequency of micturition
CPT/HCPCS: 81003; 87086; 87088; 87186; 87480; 87510; 87660

== ENCOUNTER 2022-10-07 15:59 | Outpatient (REF) | payer OTHER, SELFPAY ==
[2022-10-15 08:59] LABS: HPV mRNA E6/E7 rflx Not Detected (Not Detected)
== END 2022-10-07 16:00 | disposition home or self-care (01) ==
LOC: HO.LNP 15:59
PROVIDERS: Visit Provider Advanced Practice Midwife
DX: Z01.419 Encounter for gynecological examination (general) (routine) without abnormal findings (principal); Z11.51 Encounter for screening for human papillomavirus (HPV)
CPT/HCPCS: 87624; 88142

== ENCOUNTER 2023-05-23 17:26 | Outpatient (AMB) | payer OTHER, SELFPAY ==
[2023-05-23 17:28] VITALS: BP 108/68; PULSE 88; O2SAT 96; BMI 35.8
--- NOTE | 2023-05-23 17:28 | A.OFFPC_ITS ---
Vital Signs 05/23/23 17:28 05/23/23 17:28 Height 5 ft 5 ft 4 in Weight 208 lb 8 oz BMI 35.8 BP 108/68 Blood Pressure Location Lt brachial Position Sitting Pulse 88 Pulse Source Pulse Oximeter Pulse Oximetry (%) 96 Oxygen Delivery Method Room Air Intake Visit Reasons: PE Intake Note: Patient is here today for a physical. 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 Accompanied by: Self / Same As Patient Allergies metronidazole Adverse Reaction (Severe, Verified 05/23/23 17:42) hives Medication List - Last Reconciled 05/23/23 by Femi Alfredo MD levonorgestrel 1 device intrauterine ONCE Tobacco use date assessed: 05/23/23 Dental Screening Dental Screen Date: 05/23/23 Did you have a dental visit in the last 12 months?: Yes Did you have a dental problem in the last 6 months where you did not have access to dental care?: No Was dental information given to patient?: Patient has dentist HPI PE HPI Details Patient comes in today for her annual physical examination - was last seen by me over 3 years ago on 04/21/2020 Patient states that she is still experience frequent pain in her left knee MRI of the left knee done back in July 2021 revealed (+) complete tear of the ACL and a non-displaced oblique tibial articular surface tear of the medial meniscus posterior horn and body States that she was recommended to undergo knee surgery and repair of her ACL but she has not yet done so due to concerns about how long she will be out of work following her surgery 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 and cannot afford to be out of work for too long States that she feels okay otherwise She denies any headaches or dizziness Denies any chest pains, no SOB No nausea/vomiting, no abdominal pain No change in bowel habits noted She denies any acute urinary symptoms She is up-to-date with her annual pap smear and gynecology exam - these were last done on 10/11/2022 and she has her next gynecology appt in September 2023 [facility] Medical History (Updated 05/23/23 @ 18:42 by Femi Alfredo MD) History of attention deficit hyperactivity disorder (ADHD) History of Graves' disease Attention deficit hyperactivity disorder (ADHD) Hyperthyroidism Migraine Closed fracture of tooth Obesity (BMI 30-39.9) Surgical History Hx of section Hx of eye surgery Family History Father Hypertension HIV (human immunodeficiency virus infection) Chronic mental illness Diabetes Mother Hypertension Chronic mental illness Depression with anxiety Maternal Grandmother Hypertension Arthritis Maternal Grandfather Hypertension Myocardial infarction Paternal Grandmother Diabetes Osteoporosis Paternal Grandfather Hypertension Alzheimers disease Other No family history of breast cancer Social History Housing: Apartment Alcohol intake: former Patient Tobacco Use Status: Never used Tobacco e-Cigarette/Vaping Use: Never Used service: No Current occupational status: employed 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 1. Little interest or pleasure in doing things: more than half the days 2. Feeling down, depressed, or hopeless: several days 3. Trouble falling or staying asleep, or sleeping too much: several days 4. Feeling tired or having little energy: more than half the days 5. Poor appetite or overeating: not at all 6. Feeling bad about yourself - or that you are a failure or have let yourself or your family down: more than half the days 7. Trouble concentrating on things, such as reading the newspaper or watching television: nearly every day 8. Moving or speaking so slowly that other people could have noticed. Or the opposite - being so fidgety or restless that you have been moving around a lot more than usual: not at all 9. Thoughts that you would be better off or of hurting yourself in some way: not at all Total score: 11 Depression Screening Interpretation: Positive (states that her current issues are related to stress from her son's school) Depression Screening Follow-up: Declines treatment Depression Screening Done: Yes 22646 - PHQ-9 Billing: Yes Source: Developed by Drs. Acosta Roblero, Flora Cole, Xiang Reed and colleagues, with an educational rhonda from [employer]. Thrive Questionnaire Date Thrive assessed: 05/23/23 I am a: Patient What is your living situation today?: I have a steady place to live Within the past 12 months, did the food you bought not last and you didn't have the money to get more?: Never true Within the past 12 months, did you worry whether your food would run out before you got money to buy more?: Never true Do you have trouble paying for medicines?: No Do you have trouble getting transportation to medical appointments?: No Do you have trouble paying your heating and electricity bill?: No Do you have trouble taking care of your child, family member or friend?: No Do you have trouble with day-to-day activities such as bathing, preparing meals, shopping, managing finances, etc.?: No Are you currently unemployed and looking for a job?: No Are you interested in more education?: No Please select the resources that you would like help with: None Currently or been in a relationship where the following occur: no concerns reported THRIVE Score: 0 AUDIT C Alcohol Use Questionnaire (AUDIT-C) 1. How often do you have a drink containing alcohol?: Monthly or less 2. How many drinks containing alcohol do you have on a typical day when you are drinking?: 1 or 2 3. How often do you have six or more drinks on one occasion?: Never Total Score: 1 Score Reviewed/Action Taken: Yes ABELARDO-7 AMB Questionnaire ABELARDO-7 Date ABELARDO - 7 assessed: 05/23/23 Feeling nervous, anxious, or on edge: 1 = Several days Not being able to stop or control worryin = Not at all Worrying too much about different things: 3 = Nearly every day Trouble relaxin = Not at all Being so restless that it is hard to sit still: 0 = Not at all Becoming easily annoyed or irritable: 1 = Several days Feeling afraid as if something awful might happen: 3 = Nearly every day Total ABELARDO-7 score (0-4 normal; 5-9 mild; 10-14 moderate; 15-21 severe): 8 Source: Developed by Drs. Acosta Roblero, Flora Cole, Xiang Reed and colleagues, with an educational rhonda from [employer] ABELARDO-7 Assessment Billing ABELARDO-7 Assessment Tool: ABELARDO-7 Assessment 63248 Review of Systems Const Denies chills, Denies difficulty sleeping, Denies fatigue, Denies fever(s), Denies headache(s) and Denies malaise Eyes Denies blurry vision, Denies change in vision, Denies irritation and Denies itchy eyes ENT Denies dysphagia, Denies dizziness, Denies otalgia, Denies headache(s), Denies nasal congestion, Denies neck pain, Denies odynophagia, Denies sinus pain and Denies sore throat Card Denies chest pain, Denies rapid heart rate, Denies irregular heart rhythm, Denies palpitations and Denies dyspnea Resp Denies chest congestion, Denies cough, Denies dyspnea and Denies wheezing GI Denies abdominal pain, Denies bloating, Denies constipation, Denies dysphagia, Denies heartburn, Denies diarrhea, Denies nausea, Denies odynophagia and Denies vomiting Denies hematuria, Denies urinary frequency, Denies dysuria, Denies urinary incontinence and Denies urinary urgency Musc Denies back pain, Reports arthralgias (over the left knee), Denies joint swelling, Denies muscle weakness and Denies neck pain Skin/Breast Denies breast pain, Denies breast mass, Denies change in pigmentation, Denies lesions, Denies rash and Denies unusual bruising Neuro Denies dizziness, Denies headache(s) and Denies paresthesias Psych Denies anxiety and Denies depression Endo Denies fatigue and Denies palpitations Ike/Lymph Denies easy bruising Aller/Immun Denies itchy eyes and Denies wheezing Physical exam (Primary Care) Vital Signs: Last Vital Signs Pulse 88 05/23/23 17:28 BP 108/68 05/23/23 17:28 Pulse Ox 96 05/23/23 17:28 Oxygen Delivery Method Room Air 05/23/23 17:28 BMI result Body Mass Index 35.8 Tobacco/Smoking Status: Tobacco use Status Tobacco use date assessed 05/23/23 05/23/23 17:37 Patient Tobacco Use Status Never used Tobacco 05/23/23 17:37 e-Cigarette/Vaping Use Never Used 05/23/23 17:37 PHQ-9: PHQ-9 Score PHQ-9: Total score 11 05/23/23 17:37 Depression Screening Interpretation: Positive (states that her current issues are related to stress from her son's school) Depression Screening Follow-up: Declines treatment Thrive Assessment: Date of Thrive Assessment Date Thrive assessed 05/23/23 05/23/23 17:37 Currently or been in a relationship where the following occur: no concerns reported Const General: no acute distress, alert and awake Orientation/consciousness: patient oriented x3 HENMT Head: Yes normocephalic and Yes atraumatic Ears: external ears normal, TM's normal bilaterally and EAC's normal General nose exam: No nasal discharge present Face and sinus: Yes normal facial exam and Yes sinuses nontender Teeth and gingiva: dentition normal Throat: Yes posterior oropharynx normal and Yes tonsils normal (no TP congestion) Eyes Eyelids: Yes eyelids normal Conjunctivae: conjunctivae normal Pupils: Equal, round and reactive pupils present EOM: EOMs intact bilaterally Neck Neck: Yes no lymphadenopathy and Yes supple Thyroid: Thyroid normal Resp Auscultation: clear to auscultation bilaterally, no rales and no wheezes Cardio Rate: regular rate Rhythm: regular rhythm Heart sounds: no murmurs GI Palpation (GI): Soft to palpation, nontender and No hepatosplenomegaly present Auscultation: normal bowel sounds General: Yes no CVA tenderness Back/Spine/Pelvis Back: no CVA tenderness Thoracic/Lumbar Spine: thoracic and lumbar spine normal to inspection Skin Lesions: no lesions Rashes: no rashes Neuro General: patient oriented x3, moves all extremities, no focal motor deficits and CN's II-XI intact bilaterally Cranial nerves: Yes Equal, round and reactive pupils present Cognition (Neuro): normal cognition Gait exam (Neuro): Normal gait present Extrem General: Yes no clubbing, cyanosis or edema Left lower extremity: knee Details: tenderness Location: of the medial joint line and of the infrapatellar area; no swelling Assessment and Plan Assessment & Plan (1) Annual physical exam: Code(s): Z00.00 - Encounter for general adult medical examination without abnormal f indings Plan: Check labs She is up-to-date with her annual pap smear and gynecologic exam (2) Tears of meniscus and ACL of left knee: Code(s): S83.207A - Unspecified tear of unspecified meniscus, current injury, left knee, initial encounter; S83.512A - Sprain of anterior cruciate ligament of left knee, initial encounter Qualifiers: Encounter type: sequela Qualified Code(s): S83.207S - Unspecified tear of unspecified meniscus, current injury, left knee, sequela; S83.512S - Sprain of anterior cruciate ligament of left knee, sequela Plan: MRI of the left knee done back in July 2021 revealed a complete tear of the ACL and a non-displaced oblique tibial articular surface tear of the medial meniscus posterior horn and body States that surgical repair has been recommended by orthopedics but she has not yet undergone surgery due to uncertainties about how long her recovery period following surgery will be as she cannot afford to be out of work for too long She has not seen orthopedics in over 2 years now and was advised to see them again regarding her knee and that they should be able to give her an estimated time frame as to how long her recovery following knee surgery will be, after which she can then plan ahead Will refer her back to orthopedics for further evaluation and management (3) History of Graves' disease: Code(s): Z86.39 - Personal history of other endocrine, nutritional and metabolic disease Plan: Was treated with Methimazole in the past but has not been on any Rx for her thyroid in a few years now Will send her for labs to check her TFTs for follow up (4) Obesity (BMI 30-39.9): Code(s): E66.9 - Obesity, unspecified Plan: Reinforced diet/exercise as tolerated/lose weight Plan To return in 1 year for her next annual physical examination Orders: Orders Complete Blood Count Auto Diff Today D64.9 - Anemia, unspecified, Z00.00 - Encounter for general adult medical examination without abnormal findings Comprehensive Bim. Panel Fast Today E78.00 - Pure hypercholesterolemia, unspecified, Z00.00 - Encounter for general adult medical examination without abnormal findings Lipid Panel Today E78.00 - Pure hypercholesterolemia, unspecified, Z00.00 - Encounter for general adult medical examination without abnormal findings Thyroid Stimulating Hormone Today Z86.39 - Personal history of other endocrine, nutritional and metabolic disease Triiodothyronine T3 Total Today Z86.39 - Personal history of other endocrine, nutritional and metabolic disease Free T4 (Free Thyroxine) Today Z86.39 - Personal history of other endocrine, nutritional and metabolic disease UA CC w/rflx Micro + Cult Today R30.0 - Dysuria, Z00.00 - Encounter for general adult medical examination without abnormal findings Referrals Orthopedics Referral S83.207A - Unspecified tear of unspecified meniscus, current injury, left knee, initial encounter, S83.512A - Sprain of anterior cruciate ligament of left knee, initial encounter Coding Level of Care Code Est Pt Prev Care 18-39y(00972) Diagnoses Annual physical exam Z00.00 Tears of meniscus and anterior cruciate ligament of left knee, sequela S83.207S; S83.512S Encounter type: sequela History of Graves' disease Z86.39 Obesity (BMI 30-39.9) E66.9 Additional Codes ABELARDO-7 Assessment Billing - ABELARDO-7 Assessment Tool: ABELARDO-7 Assessment 24432 ([id number])
== END 2023-05-23 17:55 | disposition home or self-care (01) ==
LOC: HO.HMGH 17:27
PROVIDERS: PCP Internal Medicine; Visit Provider Internal Medicine
DX: Z00.00 Encounter for general adult medical examination without abnormal findings (principal); E66.9 Obesity, unspecified; Z68.35 Body mass index [BMI] 35.0-35.9, adult; Z86.39 Personal history of other endocrine, nutritional and metabolic disease; S83.207S Unspecified tear of unspecified meniscus, current injury, left knee, sequela; S83.512S Sprain of anterior cruciate ligament of left knee, sequela
CPT/HCPCS: 99395

== ENCOUNTER 2023-06-28 19:33 | Emergency (ER) | payer OTHER, SELFPAY ==
--- NOTE | ~2023-06-28 | US_ITS ---
EXAMINATION: US VENOUS ULTRASOUND WITH DOPPLER LOWER EXTREMITY, LEFT CLINICAL INFORMATION: Pain. COMPARISON: No similar priors. TECHNIQUE: Ultrasound of the deep veins is performed from the hip to the calf with compression sonography and color and pulse Doppler assessment. Spectral analysis with color-flow imaging is performed. FINDINGS: There is normal venous compression and respiratory variation and augmented flow. The visualized left common femoral vein, superficial femoral vein, profunda femoral vein, popliteal vein, and the trifurcation region shows no evidence of deep venous thrombosis. The visualize segments of the posterior tibialis vein are patent. The peroneal vein is not well seen.There is no significant popliteal fossa cyst. US/US venous duplex LE LT IMPRESSION: No DVT demonstrated in the left lower extremity with the caveat of suboptimal evaluation of the peroneal vein. If the patient's symptoms persist, followup ultrasound in 5 days 7 days might be of value to exclude proximal propagation from a non-visualized calf vein.
[2023-06-28 20:16] VITALS: BP 110/64; PULSE 88; RESP 18; TEMP 37.1; O2SAT 100; BMI 35.7
--- NOTE | 2023-06-28 20:17 | ED_ITS ---
HPI - Extremity Problem General Chief complaint: Extremity Injury, Lower Stated complaint: lft leg swollen/retaining water? Related Data Home Medications ?Medication ?Instructions ?Recorded ?Confirmed levonorgestrel 21 mcg/24 hours (8 1 device intrauterine ONCE 04/21/20 05/23/23 yrs) 52 mg intrauterine device Allergies Allergy/AdvReac Type Severity Reaction Status Date / Time metronidazole AdvReac Severe hives Verified 06/28/23 20:22 PMFSH Past Medical History Medical History (Updated 06/30/23 @ 10:51 by [place] Siddiqui) History of attention deficit hyperactivity disorder (ADHD) History of Graves' disease Attention deficit hyperactivity disorder (ADHD) Hyperthyroidism Migraine Closed fracture of tooth Obesity (BMI 30-39.9) Surgical History Hx of section Hx of eye surgery Family History Family History Father Hypertension HIV (human immunodeficiency virus infection) Chronic mental illness Diabetes Mother Hypertension Chronic mental illness Depression with anxiety Maternal Grandmother Hypertension Arthritis Maternal Grandfather Hypertension Myocardial infarction Paternal Grandmother Diabetes Osteoporosis Paternal Grandfather Hypertension Alzheimers disease Other No family history of breast cancer Social History Social History Housing: Apartment Alcohol intake: former Patient Tobacco Use Status: Never used Tobacco e-Cigarette/Vaping Use: Never Used Advance Directives: No Advance Directives Information Provided: No service: No Current occupational status: employed 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 Vernell is a 33 year old female presenting today for evaluation of worsening L knee/lower extremity pain since Tuesday06/24/2023. Reports that the pain is chronic secondary to L menisus and ACL njury but has worsened acutely and feels like that there is fluid present. Had prior arthocentesis to remove fluid. She is unable to bear weight completely on left lower extremity, is still able to ambulate independtly, however is leaning more on right side. Plan: US of left lower extremity Discharge Plan Discharge Clinical Impression: Knee pain Patient Disposition: Left W/O Completing Treatment Prescriptions: No Action levonorgestrel 20 mcg/24 hours (6 yrs) 52 mg intrauterine device 1 device intrauterine ONCE Discharge Date/Time: 06/29/23 01:28 Print Language: Portuguese
== END 2023-06-29 01:28 | disposition left against medical advice (07) ==
LOC: HO.ED 06-29 01:27
PROVIDERS: Emergency Provider Emergency Medicine; PCP Internal Medicine
DX: M25.562 Pain in left knee (principal); M79.605 Pain in left leg
CPT/HCPCS: 93971; 99281; 99284

== ENCOUNTER 2023-07-01 11:27 | Outpatient (AMB) | payer OTHER, SELFPAY ==
--- NOTE | 2023-07-01 11:29 | A.OFFVIS_ITS ---
Intake Intake Visit Reasons: ov- lt knee pain Intake Note: This is a 33 year old female who presents for a follow up for her left knee. She reports increased swelling, pain and is back to walking on her toes instead of her full foot. She is taking ibuprofen as needed and is now taking aleve. 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 She elected not to undergo surgery and has been working and living her life. She does not do aerobic activity but does work out in the gym. She has the sensation of giving way and cannot bend her knee fully. She had an episode of worsening pain recently. She felt swelling in her knee and has been having worsening pain. She went to the ED for this recently. [facility] Medical History (Updated 07/01/23 @ 00:01 by Aneudy Dixon) History of attention deficit hyperactivity disorder (ADHD) History of Graves' disease Attention deficit hyperactivity disorder (ADHD) Hyperthyroidism Migraine Closed fracture of tooth Obesity (BMI 30-39.9) Surgical History Hx of section Hx of eye surgery Family History Father Hypertension HIV (human immunodeficiency virus infection) Chronic mental illness Diabetes Mother Hypertension Chronic mental illness Depression with anxiety Maternal Grandmother Hypertension Arthritis Maternal Grandfather Hypertension Myocardial infarction Paternal Grandmother Diabetes Osteoporosis Paternal Grandfather Hypertension Alzheimers disease Other No family history of breast cancer Social History Housing: Apartment Alcohol intake: former Patient Tobacco Use Status: Never used Tobacco e-Cigarette/Vaping Use: Never Used service: No Current occupational status: employed 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 Resp Other: No audible wheezing Effort & Inspection: normal respiratory effort Back/Spine/Pelvis Cervical Spine: normal cervical lordosis Skin General skin exam: no rashes or lesions noted Neuro General: no focal motor deficits Extrem Other: Left knee with moderate effusion 0-95 deg motion with pain _+ medial Steinmen's Too apprehensive for pivot shift/matt's Psych Appearance: grossly normal and well kempt Mental Status: mental status grossly normal Speech and movement: Normal speech and movement present Affect: normal affect Attitude: cooperative Results Reviewed Results Reviewed: I personally reviewed the MR images. MRI from 08/16 shows ACL/MMT Assessment & Plan Assessment & Plan (1) Tears of meniscus and ACL of left knee: Code(s): S83.207A - Unspecified tear of unspecified meniscus, current injury, left knee, initial encounter; S83.512A - Sprain of anterior cruciate ligament of left knee, initial encounter Qualifiers: Encounter type: sequela Qualified Code(s): S83.207S - Unspecified tear of unspecified meniscus, current injury, left knee, sequela; S83.512S - Sprain of anterior cruciate ligament of left knee, sequela Plan: This is a 33 yo with a complete rupture of her ACL, loss of motion and pain. I recommend MRI to evaluate. Orders: Orders MR knee LT wo con Today S83.207S - Unspecified tear of unspecified meniscus, current injury, left knee, sequela, S83.512S - Sprain of anterior cruciate ligament of left knee, sequela Coding Level of Care Code Est Pt Level 4 (95473) Diagnoses Tears of meniscus and anterior cruciate ligament of left knee, sequela S83.207S; S83.512S Encounter type: sequela
== END 2023-07-01 11:55 | disposition home or self-care (01) ==
LOC: HO.HOS 11:27
PROVIDERS: PCP Internal Medicine; Visit Provider Orthopaedic Surgery
DX: S83.242A Other tear of medial meniscus, current injury, left knee, initial encounter (principal); S83.512S Sprain of anterior cruciate ligament of left knee, sequela
CPT/HCPCS: 99213

== ENCOUNTER → 2023-07-01 11:27 | Outpatient (BNVA) | payer OTHER, SELFPAY | PROVIDERS: PCP Internal Medicine; Visit Provider Orthopaedic Surgery | DX: S83.207D Unspecified tear of unspecified meniscus, current injury, left knee, subsequent encounter (principal); S83.512D Sprain of anterior cruciate ligament of left knee, subsequent encounter | CPT/HCPCS: 99212 ==

== ENCOUNTER 2023-10-11 15:19 | Outpatient (AMB) | payer OTHER, SELFPAY ==
[2023-10-11 15:22] VITALS: BP 90/60; BMI 35.9
--- NOTE | 2023-10-11 15:22 | MHC.OFFVIS ---
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 Doing well with no concerns. She tries to eat healthy and stays active with exercise. Random spotting with the IUD. She requests the IUD to be removed today to wanting a future . Currently is sexually active. She denies vaginal itching and irritation. STI screening offered; she declines. Denies family history of breast, ovarian or colon cancer. Last pap smear 2022, negative. [facility] Medical History History of attention deficit hyperactivity disorder (ADHD) History of Graves' disease Attention deficit hyperactivity disorder (ADHD) Hyperthyroidism Migraine Closed fracture of tooth Obesity (BMI 30-39.9) Surgical History Hx of section Hx of eye surgery Family History Father Hypertension HIV (human immunodeficiency virus infection) Chronic mental illness Diabetes Mother Hypertension Chronic mental illness Depression with anxiety Maternal Grandmother Hypertension Arthritis Maternal Grandfather Hypertension Myocardial infarction Paternal Grandmother Diabetes Osteoporosis Paternal Grandfather Hypertension Alzheimers disease Other No family history of breast cancer Social History Housing: Apartment Alcohol intake: former Patient Tobacco Use Status: Never used Tobacco e-Cigarette/Vaping Use: Never Used service: No Current occupational status: employed 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 Cognitive needs: No Hearing needs: No Vision needs: No Female Reproductive History Menstrual Age of Menarche: 13 Total pregnancies: 4 Full term: 3 Number of Living Children: 3 Date of last pap smear: 10/07/22 (neg pap and hpv) Review of Systems Const All systems reviewed & are unremarkable except as noted in HPI and below Reports as per HPI Eyes Reports no additional complaints ENT Reports no additional complaints Card Reports no additional complaints Resp Reports no additional complaints GI Reports as per HPI and Reports no additional complaints Reports as per HPI Musc Reports no additional complaints Skin/Breast Reports as per HPI Neuro Reports no additional complaints Psych Reports no additional complaints Endo Reports no additional complaints Ike/Lymph Reports no additional complaints Aller/Immun Reports no additional complaints Physical Exam Vital Signs: Last Vital Signs BP 90/60 10/11/23 15:22 BMI result Body Mass Index 35.9 Const General: cooperative, healthy appearing, no acute distress, well developed and alert Orientation/consciousness: patient oriented x3 HEENT Head: Yes normal to inspection Eyes General: appearance normal, both eyes and all related structures Neck Neck: Yes normal visual inspection Thyroid: Thyroid normal Chest Chest palpation & inspection: normal inspection of the chest and other (no puckering, dimpling, peau de orange, retraction, discharge, masses) Breast/axilla inspection: normal inspection of the breasts Breast/axilla palpation: normal palpation of the breasts Resp Effort & Inspection: normal respiratory effort GI Inspection: Yes normal to inspection and Yes scar Palpation (GI): Soft to palpation Rectal Exam - Female: deferred General: Yes bladder normal to palpation External Female Exam: normal external appearance and normal appearance of the urethra Speculum Exam - Vagina: normal appearance of the vagina, normal palpation and normal vaginal discharge Speculum Exam - Cervix: normal appearance of the cervix, normal palpation and Other cervical findings present (Cervix very posterior IUD strings at the os) Bimanual exam- vagina & uterus: normal bimanual exam, normal palpation, uterine size normal, bladder normal to palpation, normal palpation and non-tender Bimanual Exam- Adnexa, other: no masses Skin General skin exam: no rashes or lesions noted Rashes: no rashes Neuro General: patient oriented x3 Cognition (Neuro): normal cognition Extrem General: Yes normal to inspection Psych Attitude: cooperative Thought process: Normal thought process present Office Procedures Contraception Insert/Removal Details Details: The patient presents today for a IUD removal. She is planning a future . She was counseled regarding the removal of her IUD. She was consented for the procedure along with anticipatory guidance for the removal, risks and benefits, and the consents form was signed. She desires to proceed with the IUD removal. IUD Removal Procedure: The patient was placed in the dorsal lithotomy position. A speculum was inserted vaginally and the cervix and strings were visualized at the os. A ring forcep was utilized, and the patient was asked to give a deep cough while the strings were grasped and gently tugged at the same time, removing the IUD device intact. Minimal bleeding was observed. All of the equipment was removed. The patient tolerated the procedure well and left the office in good condition. IUD Removal Information: You may have light bleeding for several days, tapering off to a brown or pink color. Mild cramping after removal is common. If not allergic, you may take an over the counter mild analgesic for the discomfort, such as Tylenol or Advil (use dosing and frequency per the manufacturers recommendations). Call the office if you experience: fever (over 100.4), flu like symptoms, abdominal or pelvic pain, foul smelling discharge or heavy bleeding. If not planning for a future , another form of control is recommended. Use of condoms for prevention of STI's is also recommended, if indicated. This note is constructed using voice recognition software. While every effort has been made to ensure accuracy, chemical dependency nurse errors may have been included. [address]3063 - Removal Assessment & Plan Assessment & Plan (1) Encounter for well woman exam with routine gynecological exam: Code(s): Z01.419 - Encounter for gynecological examination (general) (routine) without abnormal findings Category: Medical (2) Encounter for IUD removal: Code(s): Z30.432 - Encounter for removal of intrauterine contraceptive device Plan Discussed: Current recommendations for pap smears per ASCCP guidelines. IUD removed successfully today. Advised to start the vitamins with folic acid for the benefit of the folic acid. Observe cycles for several months before attempting and use of condoms for now. If late for menstrual cycle do a home test if positive follow up in the office. Advised high-risk due to 3 previuos C/sections, would need to be seen at [facility] for care. Breast awareness and periodic breast exams. Maintain a healthy lifestyle including a well balanced diet and routine exercise. Patient verbalizes understanding and agrees to the plan of care. She was given opportunity to ask questions and all questions were answered to the best of my ability. RTO in one year for annual special education coordinator examination. This note is constructed using voice recognition software. While every effort has been made to ensure accuracy, chemical dependency nurse errors may have been included. Medications: New PNV,calcium [id number] acid 27 mg iron- 1 mg ( Vitamins Plus Low Iron) 1 tab PO DAILY 90 tabs 4RF Coding Level of Care Code Procedure Only Diagnoses Encounter for well woman exam with routine gynecological exam Z01.419 Encounter for IUD removal Z30.432 CPT Codes Details - Contraception: 29510 - Removal ([id number]) Comment Add modifier for IUD removal was added to annual visit
== END 2023-10-11 16:27 | disposition home or self-care (01) ==
PROVIDERS: PCP Internal Medicine; Visit Provider Advanced Practice Midwife
DX: Z01.419 Encounter for gynecological examination (general) (routine) without abnormal findings (principal); Z30.432 Encounter for removal of intrauterine contraceptive device
CPT/HCPCS: 58301; 99395

== ENCOUNTER → 2023-10-11 15:19 | Outpatient (BNVA) | payer OTHER, SELFPAY | PROVIDERS: PCP Internal Medicine; Visit Provider Advanced Practice Midwife | DX: Z01.419 Encounter for gynecological examination (general) (routine) without abnormal findings (principal); Z30.432 Encounter for removal of intrauterine contraceptive device | CPT/HCPCS: 58301; 99395 ==

== ENCOUNTER 2024-01-13 17:00 | Emergency (ER) | payer OTHER, SELFPAY ==
--- NOTE | ~2024-01-13 | US_ITS ---
EXAMINATION: US OBSTETRICAL ULTRASOUND CLINICAL INFORMATION: with vaginal bleeding COMPARISON: None available. LMP: 12/03/2023. Gestational age by maternal dates is 5 weeks and 6 days. Estimated date of delivery by maternal dates is 09/08/2024. TECHNIQUE: Ultrasound of the maternal pelvis is performed using transabdominal and transvaginal transducers. Transvaginal imaging is performed due to inadequate visualization transabdominally. M-mode Doppler is also performed. FINDINGS: Uterus is anteverted, retroflexed measuring 9.3 x 4.1 x 4.2 cm. Parenchymal echotexture is homogeneous. No intrauterine gestation is identified. Endometrial stripe is thin and homogeneous measuring 8 mm. MATERNAL ADNEXA: The right maternal ovary measures 3.5 x 2.2 x 2.5 cm. Sonographically normal The left maternal ovary measures 1.8 x 1.0 x 1.4 cm. Sonographically normal There is no significant maternal adnexal mass. No maternal pelvic ascites. US/US OB <= 14 weeks fetus IMPRESSION: Intrauterine gestation not identified. Endometrial stripe is thin and homogeneous. No acute process seen. Electronically signed by: Spencer Sunshine MD 01/13/2024 11:08 PM EDT
--- NOTE | 2024-01-13 17:16 | ED_ITS ---
HPI - General Adult General Chief complaint: Vaginal Bleeding Stated complaint: vaginal bleeding ? 6 wks Time Seen by Provider: 01/13/24 19:32 Source: patient, RN notes reviewed and old records reviewed Mode of arrival: ambulatory History of Present Illness ED Provider: Lorin Gutiérrez PA-C HPI narrative: 33-year-old female with a past medical history of hypothyroid, migraine, obesity, Graves disease, ADHD, at about 6 weeks gestation with LMP 12/03/23, presenting to the ED complaining of lower abdominal cramping and vaginal bleeding when wiping noted x today. Admits to took 5 home tests which were positive. Has not yet had any OB care. Does report yeast like vaginal discharge, which states is chronic for her. Denies nausea, vomiting, dysuria/hematuria Related Data Previous Rx's ?Medication ?Instructions ?Recorded vitamin with calcium 1 tab PO DAILY #90 tabs 10/11/23 no.72-iron 27 mg-folic acid 1 mg tablet ( Vitamins Plus Low Iron) Allergies Allergy/AdvReac Type Severity Reaction Status Date / Time metronidazole AdvReac Severe hives Verified 01/13/24 17:19 Review of Systems 2 Review of Systems: Yes all other systems are reviewed and are negative Constitutional: Constitutional: Reports as per HPI [facility] Past Medical History Attestation statement: The following information was validated with the patient. Source: old records reviewed Medical History History of attention deficit hyperactivity disorder (ADHD) History of Graves' disease Attention deficit hyperactivity disorder (ADHD) Hyperthyroidism Migraine Closed fracture of tooth Obesity (BMI 30-39.9) Surgical History Hx of section Hx of eye surgery Family History Family History Father Hypertension HIV (human immunodeficiency virus infection) Chronic mental illness Diabetes Mother Hypertension Chronic mental illness Depression with anxiety Maternal Grandmother Hypertension Arthritis Maternal Grandfather Hypertension Myocardial infarction Paternal Grandmother Diabetes Osteoporosis Paternal Grandfather Hypertension Alzheimers disease Other No family history of breast cancer Social History Social History Housing: Apartment Alcohol intake: former Patient Tobacco Use Status: Never used Tobacco Smoked in Last 30 Days: No e-Cigarette/Vaping Use: Never Used Use of substances other than those prescribed or required for medical reasons: No Advance Directives: No Advance Directives Information Provided: No Do you have a plan to hurt others: No Plan Patient : Yes service: No Current occupational status: employed 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 Cognitive needs: No Hearing needs: No Vision needs: No Physical Exam ED Vital Signs: Vital Signs - 24 hr 01/13/24 17:17 01/13/24 19:30 01/13/24 21:24 Temperature 98.6 F 97.5 F Pulse Rate 88 78 99 Respiratory Rate 18 16 16 Blood Pressure 109/63 112/62 105/61 Pulse Oximetry 100 100 98 Oxygen Delivery Method Room Air Room Air Room Air BMI result Body Mass Index 36.7 Const General: cooperative, healthy appearing and no acute distress Orientation/consciousness: patient oriented x3 Limitations: no limitations HENMT Head: Yes normal to inspection and Yes atraumatic Ears: hearing grossly normal bilaterally General nose exam: Normal external nose present Face and sinus: Yes normal facial exam Eyes General: appearance normal, both eyes and all related structures EOM: EOMs intact bilaterally Neck Neck: Yes normal visual inspection and Yes no meningeal signs Resp Effort & Inspection: normal respiratory effort and no respiratory distress Auscultation: clear to auscultation bilaterally Cardio Rate: regular rate Heart sounds: S1 normal heart sound present and S2 normal heart sound present GI Inspection: Yes normal to inspection Palpation (GI): Soft to palpation, nontender, no guarding and not rigid General: Yes no CVA tenderness Speculum Exam - Vagina: normal vaginal discharge, no lesions, vaginal bleeding (small amount, no active hemorrhage) and nontender Speculum Exam - Cervix: normal appearance of the cervix Bimanual exam- vagina & uterus: no cervical motion tenderness Bimanual Exam- Adnexa, other: tender on the right OB/external & speculum: vaginal bleeding (small amount, no active hemorrhage) Back/Spine/Pelvis Back: no CVA tenderness Skin Rashes: no rashes Wounds: no wounds Neuro General: patient oriented x3, tone normal and no meningeal signs Cranial nerves: Yes CN's II-XII intact bilaterally Gait exam (Neuro): Normal gait present Extrem General: Yes normal to inspection Course Course Course Narrative: This is a rapid medical exam performed by Brigida Murcia NP: Additional HPI, ROS, PE not included below will be deferred to primary provider. Patient is a 33-year-old female with history of Graves disease, ADHD, migraines presenting to the ED with complaint of vaginal bleeding, mild lower abdominal cramping. States noted a few drops of blood in the toilet and also noted blood on toilet paper after wiping. LMP was 12/02 and has had several positive tests at home. Plan: labs, u/s -labs reassuring. HCG 2,579 -ABO positive, no RhoGAM indicated -UA with 15 ketones, not infected -2100--ED care transferred to [facility] pending US and anticipated dispo Reevaluation(s) Reevaluation #1: Discussed with OBGYN, Doctor Nam who came in and evaluated the patient. He performed additional pelvic examination, he discussed different options with the patient. The patient elected to return in 48 hours for repeat hCG and repeat ultrasound. Return precautions were given to the patient by myself as well as Dr. Nam Time: 22:37 Medical Decision Making Medical Decision Making MDM Narrative: 33-year-old female with a past medical history of hypothyroid, migraine, obesity, Graves disease, ADHD, at about 6 weeks gestation with LMP 12/03/23, presenting to the ED complaining of lower abdominal cramping and vaginal bleeding when wiping noted x today. On exam vital signs stable, NAD, nontoxic appearing, abdomen soft/nontender, on pelvic exam small amount of bleeding appreciated, no active hemorrhage. No CMT. Right adnexa with mild tenderness, no appreciable mass. Concern for early vs threatened vs missed . Lower suspicion for ovarian torsion, appendicitis or diverticulitis or TOA Plan: Labs, UA, ultrasound Please refer to course for remaining clinical decision making, interpretation of labs/imaging results, and discussions with consultants and/or family members. Differential Diagnosis Differential Diagnoses: The differential diagnosis associated with the presentation includes As above Admission/Observation Consideration of admission/observation: Escalation of care including admission/observation considered Lab Data [facility] Lab Attestation statement: I reviewed the patient's lab results. 01/13/24 18:15 01/13/24 18:15 Labs: Lab Results 10/18/24 10/18/24 Range/Units 18:15 18:16 WBC 8.7 (4.8-10.8) X10*3/uL RBC 4.18 L (4.20-5.50) X10*6/uL Hgb 12.7 (12.0-16.0) g/dl Hct 37.8 (37.0-47.0) % MCV 90.4 (80.0-98.0) fL MCH 30.4 (27.0-33.0) pg MCHC 33.6 (31.0-35.0) g/dl RDW 12.2 (11.0-16.0) % Plt Count 216 (160-400) X10*3/uL MPV 10.6 (9.4-12.3) fL Immature Gran % (Auto) 0.3 (0.0-0.4) % Neut % (Auto) 67.3 (45-73) % Lymph % (Auto) 23.4 (20-40) % [place] % (Auto) 6.0 (2-11) % Eos % (Auto) 2.3 (0-4) % Baso % (Auto) 0.7 (0-2) % Lymph # (Auto) 2.0 (1.2-4.9) X10*3/uL [place] # (Auto) 0.5 (0.1-1.2) X10*3/uL Eos # (Auto) 0.2 (0.0-0.4) X10*3/uL Baso # (Auto) 0.1 (0.0-0.2) X10*3/uL Abs Immat Gran (auto) 0.03 (0.00-0.03) X10*3/uL Absolute Neuts (auto) 5.9 (2.0-8.3) x10*3/uL Absolute Nucleated RBC 0.000 (0.0-0.012) X10*3/uL Nucleated RBC % (auto) 0.0 (0.0-0.2) /100WBC PT 11.5 (10.9-12.4) SEC INR 1.0 (0.9-1.1) Sodium 140 (135-145) mmol/L Potassium 3.6 (3.3-5.1) mmol/L Chloride 107 (96-108) mmol/L Carbon Dioxide 24 (22-29) mmol/L Anion Gap 13 (12-20) BUN 13 (9-16) mg/dL Creatinine 0.70 (0.5-1.4) mg/dL Estim Creat Clear Calc 131.7 Estimated GFR > 60 Random Glucose 103 (60-115) mg/dL Calcium 9.1 (8.4-10.2) mg/dL Total Bilirubin 0.3 (0.0-1.0) mg/dL AST 24 (5-31) U/L ALT 31 (0-31) U/L Alkaline Phosphatase 60 (39-117) U/L Total Protein 7.1 (6.5-8.0) g/dL Albumin 4.3 (3.5-5.0) g/dL Beta HCG, Quant 2579 mIU/mL Urine Color Yellow Urine Appearance Clear Urine pH 5.5 (5.0-9.0) Ur Specific [place] 1.025 (1.005-1.025) Urine Protein Negative (Neg-Trace) mg/dL Urine Glucose (UA) Negative (Negative) mg/dL Urine Ketones 15 (Negative) mg/dL Urine Blood Negative (Negative) Urine Nitrite Negative (Negative) Ur Leukocyte Esterase Negative (Negative) Blood Type A Positive Independent Interpretation I performed an independent interpretation of an: Ultrasound Radiology Impression Discussion of test interpretation with radiology: I have reviewed the radiologist's reading. External Record Review External record reviewed: Inpatient record, Office record, Outpatient record, Prior outpatient labs, Prior outpatient radiology, Primary care record and Outside ED record Tests considered The following testing was considered but not selected: As above Social Determinants Patient?s care significantly limited by Social Determinants of Health including: Other Social Determinant of Health Discharge Plan Discharge Clinical Impression: Bleeding in early Patient Disposition: Home, Self-Care Instructions: Abdominal Pain in (ED) Additional Instructions: your HCG is 2,579 Your ultrasound does not show an intrauterine , this could be because you are to early. This could potentially also be signs of an early miscarriage or an ectopic . YOU NEED TO HAVE REPEAT BLOOD WORK IN 2 DAYS and a repeat ultrasound. If your symptoms persist or worsen, you have constant or worsening abdominal pain/cramping or bleeding return to the ED immediately Please call your OBGYN for close follow-up. Prescriptions: No Action Vitamin Plus Low Iron 27 mg iron- 1 mg tablet 1 tab PO DAILY Qty: 90 4RF Referrals: [facility] [Outside] Print Language: Ethiopian
[2024-01-13 17:17] VITALS: BP 109/63; PULSE 88; RESP 18; TEMP 37; O2SAT 100; BMI 36.7
[2024-01-13 18:19] LABS: MANUAL DIFF FLAG NO
--- NOTE | 2024-01-13 18:23 | MHC.EDTECH ---
Patient blood drawn including type and screen , urine sample collected and sent to lab .
[2024-01-13 18:29] LABS: Basophils Absolute Auto 0.1 X10*3/uL (0.0-0.2); Basophils Percent Auto 0.7 % (0-2); Eosinophils Absolute Auto 0.2 X10*3/uL (0.0-0.4); Eosinophils Percent Auto 2.3 % (0-4); Hematocrit 37.8 % (37.0-47.0); Hemoglobin 12.7 g/dl (12.0-16.0); Imm Gran Abs Auto 0.03 X10*3/uL (0.00-0.03); Imm Gran Pct Auto 0.3 % (0.0-0.4); Lymphocytes Percent Auto 23.4 % (20-40); Mean Corpuscular HGB Conc 33.6 g/dl (31.0-35.0); Mean Corpuscular Hemoglobin 30.4 pg (27.0-33.0); Mean Corpuscular Volume 90.4 fL (80.0-98.0); Mean Platelet Volume 10.6 fL (9.4-12.3); Monocytes Absolute Auto 0.5 X10*3/uL (0.1-1.2); Neutrophils Absolute Auto 5.9 x10*3/uL (2.0-8.3); Neutrophils Percent Auto 67.3 % (45-73); Platelet Count 216 X10*3/uL (160-400); Red Blood Count 4.18 X10*6/uL (4.20-5.50); Red Cell Distribution Width 12.2 % (11.0-16.0); White Blood Count 8.7 X10*3/uL (4.8-10.8)
[2024-01-13 18:31] LABS: Appearance Urine Clear; Color Urine Yellow; Glucose Urine UA Negative (Negative); Leukocyte Esterase Urine Negative (Negative); Nitrite Urine Negative (Negative); PH 5.5 (5.0-9.0); Specific Gravity - Urine 1.025 (1.005-1.025); Urine Blood Negative (Negative); Urine Ketones 15 mg/dL (Negative); Urine Protein Negative (Neg-Trace)
[2024-01-13 18:31] LABS: Prothrombin Time 11.5 SEC (10.9-12.4)
[2024-01-13 18:39] LABS: Alanine Aminotransferase 31 U/L (0-31); Albumin Level 4.3 g/dL (3.5-5.0); Alkaline Phosphatase 60 U/L (39-117); Anion Gap 13 (12-20); Aspartate Amino Transferase 24 U/L (5-31); Bilirubin Total 0.3 mg/dL (0.0-1.0); Blood Urea Nitrogen 13 mg/dL (9-16); Calcium 9.1 mg/dL (8.4-10.2); Carbon Dioxide 24 mmol/L (22-29); Chloride 107 mmol/L (96-108); Creatinine Clr Calc Pharmacy 131.7; Estimated Glomerular Filt Rate > 60; Glucose Random 103 mg/dL (60-115); HCG Quantitative 2579 mIU/mL; Potassium 3.6 mmol/L (3.3-5.1); Sodium 140 mmol/L (135-145); Total Protein 7.1 g/dL (6.5-8.0)
[2024-01-13 19:30] VITALS: BP 112/62; PULSE 78; RESP 16; O2SAT 100
--- NOTE | 2024-01-13 19:36 | PC.NURSE ---
Assumed care of pt. pt lying on stretcher, no acute distress at this time.
[2024-01-13 21:24] VITALS: BP 105/61; PULSE 99; RESP 16; TEMP 36.4; O2SAT 98
--- NOTE | 2024-01-13 21:36 | PM.GYNCN ---
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 Blood type A positive HCG 2579 H&H 12.7/37.8 Urinalysis negative cc:: CC: OB [facility] Past Medical History Medical History History of attention deficit hyperactivity disorder (ADHD) History of Graves' disease Attention deficit hyperactivity disorder (ADHD) Hyperthyroidism Migraine Closed fracture of tooth Obesity (BMI 30-39.9) Family History Family History Father Hypertension HIV (human immunodeficiency virus infection) Chronic mental illness Diabetes Mother Hypertension Chronic mental illness Depression with anxiety Maternal Grandmother Hypertension Arthritis Maternal Grandfather Hypertension Myocardial infarction Paternal Grandmother Diabetes Osteoporosis Paternal Grandfather Hypertension Alzheimers disease Other No family history of breast cancer Surgical History Surgical History Hx of section Hx of eye surgery Social History Social History Housing: Apartment Alcohol intake: former Patient Tobacco Use Status: Never used Tobacco Smoked in Last 30 Days: No e-Cigarette/Vaping Use: Never Used Use of substances other than those prescribed or required for medical reasons: No Advance Directives: No Advance Directives Information Provided: No Do you have a plan to hurt others: No Plan Patient : Yes service: No Current occupational status: employed 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 Cognitive needs: No Hearing needs: No Vision needs: No Meds Allergies Allergy/AdvReac Type Severity Reaction Status Date / Time metronidazole AdvReac Severe hives Verified 01/13/24 17:19 HOT METAL CAR OPERATOR Physical Exam Vitals Vital signs: Temp Pulse Resp BP Pulse Ox O2 Del Method 97.5 F 99 16 105/61 98 Room Air 01/13/24 21:24 01/13/24 21:24 10/18/24 21:24 01/13/24 21:24 01/13/24 21:24 01/13/24 21:24 BMI result Body Mass Index 36.7 Abdomen Auscultation/Inspection/Palpation: Normal bowel sounds, Soft, Non-distended and No tenderness Female Genitalia (Pelvic) Bladder/Urethra: Normal meatus Vulva: No lesions Cervix: Grossly normal and No cervical motion tenderness Uterus: Nontender Adnexa/Parametria: Adnexal Tenderness: None, Adnexal Mass: None and Parametrial Tenderness: None HOT METAL CAR OPERATOR - Results Labs 01/13/24 18:15 01/13/24 18:15 Labs: Short CBC 01/13/24 Range/Units 18:15 WBC 8.7 (4.8-10.8) X10*3/uL Hgb 12.7 (12.0-16.0) g/dl Hct 37.8 (37.0-47.0) % Plt Count 216 (160-400) X10*3/uL BMP 01/13/24 18:15 Sodium 140 Potassium 3.6 Chloride 107 Carbon Dioxide 24 BUN 13 Creatinine 0.70 Calcium 9.1 Liver Function 01/13/24 Range/Units 18:15 Total Bilirubin 0.3 (0.0-1.0) mg/dL AST 24 (5-31) U/L ALT 31 (0-31) U/L Alkaline Phosphatase 60 (39-117) U/L Albumin 4.3 (3.5-5.0) g/dL Urine 01/13/24 Range/Units 18:16 Urine Color Yellow Urine Appearance Clear Urine pH 5.5 (5.0-9.0) Ur Specific [place] 1.025 (1.005-1.025) Urine Protein Negative (Neg-Trace) mg/dL Urine Glucose (UA) Negative (Negative) mg/dL Imaging US - abdomen: Radiologist's impression: ITS Impressions Ultrasound 01/13/24 17:35 IMPRESSION: Intrauterine gestation not identified. Endometrial stripe is thin and homogeneous. No acute process seen. Electronically signed by: Spencer Sunshine MD 01/13/2024 11:08 PM EDT Assessment and Plan (1) Bleeding in early : Status: Acute Discussed with the patient the level of HCG level is below the 3500 discriminatory zone, and the finding on ultrasound showing no IUP with no adnexal masses The differential diagnosis discussed with the patient included either early ectopic versus early SAB , or a normal early intrauterine gestation. Options of treatment were discussed with the patient includin- Expected management for the coming 48 hours and repeat HCG with or without pelvic Ultrasound. 2- Treat as if she has tubal with methotrexate or 3- Uterine aspiration. All the pros and cons and risks and benefits of each treatment approach were discussed with the patient. 1-The advantage of expectant management were discussed with the patient, being prevention of possible exposure to teratogenicity or risk of spontaneous in case of an early normal , the risk being delayed diagnosis and treatment of ectopic and possible rupture with all its possible consequences including intra-abdominal bleed and possible . 2- Explained to the patient that the use of curettage as a diagnostic tool is limited by the potential for disruption of a viable . In addition, discussed with the patient that the sensitivity of curettage in finding chorionic villi is only 70 percent. Pipelle endometrial biopsy is even less sensitive than curettage for detection of villi; sensitivities reported is between 30 and 60 percent. If curettage is performed, serum HCG levels can be followed postcurettage if histopathology does not confirm the clinical impression. When an IUP has been evacuated, hCG levels should drop by at least 15 percent the day after evacuation. There might be an advantage of performing aspiration only on patients with both an HCG concentration below the discriminatory zone and a low doubling rate, since 30 percent of these patients have a nonviable intrauterine gestation, and the remainder have an ectopic . Knowing the results of aspiration avoids unnecessary methotrexate treatment of the 30 percent of patients without ectopic . 3-Furthermore discussed with the patient the 3rd option which is treatment with methotrexate without uterine aspiration. The advantage of early treatment of presumed tubal with methotrexate was discussed with the patient, including but not limited to reducing the risk of ruptured ectopic with all its potential consequences, in addition discussed with the patient methotrexate treatment risks including but not limited to, possible exposure to methotrexate to a normal intra and and increase the risk of spontaneous and congenital anomalies. The patient decided to wait 48 hours and schedule a follow-up appointment with repeat HCG and treat accordingly. Explained to the patient to the importance of compliance and timely re-evaluation with HCG follow-up in 48 hours for an early and accurate diagnosis, and to call or go to the emergency room if pain or vaginal bleeding occurs, all questions answered, the patient verbalized understanding and agreed with the plan. Instructions given to patient to schedule a Follow-up appointment for re-evaluation with imaging and labs in 48 hours and for further management. Discussed with the plan with the emergency room physician, Dr. Gonzalez Menezes
[2024-01-13 23:06] VITALS: BP 105/61; PULSE 99; RESP 16; TEMP 36.4; O2SAT 98
[2024-01-14 02:57] LABS: CT PCR NOT DETECTED (Not Detect.); NG PCR NOT DETECTED (Not Detect.)
[2024-01-14 02:58] LABS: CT PCR NOT DETECTED (Not Detect.); NG PCR NOT DETECTED (Not Detect.)
[2024-01-14 14:27] LABS: Bacterial Vaginosis PCR POSITIVE (Negative); Candida Group PCR DETECTED (Not Detect); Candida glab krusei PCR NOT DETECTED (Not Detect); Trichomonas vaginalis PCR NOT DETECTED (Not Detect)
== END 2024-01-13 23:07 | disposition home or self-care (01) ==
PROVIDERS: Physician Assistant; Registered Nurse Emergency; Emergency Provider Emergency Medicine; PCP Internal Medicine
DX: O20.9 Hemorrhage in early pregnancy, unspecified (principal); R10.9 Unspecified abdominal pain; E05.00 Thyrotoxicosis with diffuse goiter without thyrotoxic crisis or storm; F90.9 Attention-deficit hyperactivity disorder, unspecified type; E03.9 Hypothyroidism, unspecified
CPT/HCPCS: 0352U; 36415; 76801; 80053; 81003; 84702; 85025; 85610; 86900; 86901; 87491; 87591; 99284

== ENCOUNTER → 2024-01-13 18:41 | Outpatient (BNV) | payer OTHER, SELFPAY | PROVIDERS: Emergency Provider Emergency Medicine; PCP Internal Medicine; Visit Provider Obstetrics & Gynecology | DX: O20.9 Hemorrhage in early pregnancy, unspecified (principal) | CPT/HCPCS: 99283 ==

== ENCOUNTER 2024-01-15 11:07 | Emergency (ER) | payer OTHER, SELFPAY ==
--- NOTE | ~2024-01-15 | US_ITS ---
EXAMINATION: US OBSTETRICAL ULTRASOUND CLINICAL INFORMATION: Rule out ectopic COMPARISON: 01/13/2024 LMP: 12/03/2023. Gestational age by maternal dates is 6 weeks 1 day Estimated date of delivery by maternal dates is 09/08/2024. TECHNIQUE: Transabdominal and limited transvaginal views. FINDINGS: Uterus measures 10.2 x 3.9 x 5.7 cm. Endometrium measures 7 mm. No intrauterine gestation is identified. MATERNAL ADNEXA: The right maternal ovary measures 3.4 x 1.5 x 2.4. There is a right adnexal masslike structure measuring 1.5 x 0.9 x 1.7 cm. Peripheral flow seen about the right adnexal mass. Suggestion of central lucency within the masslike structure could represent gestational sac. This measures 4 mm, possibly corresponding to a 4 week 6 day gestational age. No pole, yolk sac or heart rate detected. Small amount of free pelvic fluid is seen. The left maternal ovary measures 1.8 x 1.0 x 1.7. There is a small amount of free pelvic fluid. US/US OB pelvic and transvaginal IMPRESSION: Sonographic findings suspicious for right ectopic . Small amount of free pelvic fluid. At the time of this dictation, PSA service contacted to alert referring physician. Electronically signed by: Sarah Vasquez MD 01/15/2024 12:16 PM EDT
--- NOTE | 2024-01-15 11:14 | ED.GENADULT ---
HPI - General Adult General Chief complaint: Vaginal Bleeding Stated complaint: ? seen 01/12 told to come back Time Seen by Provider: 01/15/24 11:42 Source: patient Mode of arrival: ambulatory Limitations: no limitations History of Present Illness ED Provider: DR. Tijerina HPI narrative: 33-year-old female LMP 12/03/2023 about 6 weeks came in for evaluation vaginal spotting only when wiping started 4 days ago, patient also started with abdominal cramping no more abdominal cramps but patient is still spotting from her vagina patient was seen in the ED on 01/12 had hCG of 2579 there was no IUP on ultrasound came back today for repeat hCG and ultrasound. patient's blood type is A positive. Related Data Previous Rx's ?Medication ?Instructions ?Recorded vitamin with calcium 1 tab PO DAILY #90 tabs 10/11/23 no.72-iron 27 mg-folic acid 1 mg tablet ( Vitamins Plus Low Iron) Allergies Allergy/AdvReac Type Severity Reaction Status Date / Time metronidazole AdvReac Severe hives Verified 01/15/24 11:17 Review of Systems Review of Systems: All other systems are reviewed and are negative Constitutional: Reports as per HPI and Reports no additional constitutional complaints Eyes: Reports as per HPI and Reports no additional eye complaints Reports system reviewed and no additional complaints, except as documented Cardiovascular: Reports as per HPI and Reports no additional cardiovascular complaints Respiratory: Reports as per HPI and Reports no additional respiratory complaints Gastrointestinal: Reports as per HPI and Reports no additional gastrointestinal complaints Genitourinary: Reports no additional female genitourinary complaints Musculoskeletal: Reports no additional musculoskeletal complaints Skin/Breast: Reports system reviewed and no additional complaints, except as docu Psychiatric: Reports no additional psychiatric complaints Endocrine: Reports no additional endocrine complaints Hematologic/Lymphatic: Reports no additional hematologic/lymphatic complaints Allergic/Immunologic: Reports no additional allergic/immunologic complaints Reports system reviewed and no additional complaints, except as documented and Reports Abnormal speech present [facility] Past Medical History Medical History History of attention deficit hyperactivity disorder (ADHD) History of Graves' disease Attention deficit hyperactivity disorder (ADHD) Hyperthyroidism Migraine Closed fracture of tooth Obesity (BMI 30-39.9) Surgical History Hx of section Hx of eye surgery Family History Family History Father Hypertension HIV (human immunodeficiency virus infection) Chronic mental illness Diabetes Mother Hypertension Chronic mental illness Depression with anxiety Maternal Grandmother Hypertension Arthritis Maternal Grandfather Hypertension Myocardial infarction Paternal Grandmother Diabetes Osteoporosis Paternal Grandfather Hypertension Alzheimers disease Other No family history of breast cancer Social History Social History Housing: Apartment Alcohol intake: former Patient Tobacco Use Status: Never used Tobacco e-Cigarette/Vaping Use: Never Used Advance Directives: No Advance Directives Information Provided: No service: No Current occupational status: employed 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 Blood pressure elevated. Heart rate normal. Respiratory rate normal. Temperature normal. Oxygen saturation normal. Appearance: Alert. Oriented X3. No acute distress. Head: Normal external exam. Normocephalic. Atraumatic. No [place] signs noted. No raccoon eyes noted Eyes: PERRLA. EOMI. Conjunctiva and sclera normal. Eyelids normal. ENT: TM's Normal. Pharynx normal. Uvula midline. Moist mucous membranes. No trismus noted. No drooling noted. No muffled voice noted. Neck: Normal inspection. Neck supple. FROM. No adenopathy. Thyroid Normal. No meningeal signs. No neck mass noted. CVS: Normal heart rate and rhythm. Heart sound normal. No murmurs noted. Pulses normal throughout. Respiratory: No respiratory distress. Painless inspiration. Breath sounds normal. No wheezes/rales/rhonchi noted. Chest nontender. No accessory muscle usage noted or decreased air movement noted. Abdomen: Soft and nontender. Bowel sounds normal in all 4 quadrants. No distention noted. No organomegaly noted. No visible injury noted. Pelvic exam: Deferred for the ultrasound. Back: No CVA tenderness. Full range of motion noted. Skin: Skin warm and dry. Normal skin color. Normal skin turgor. No rashes/lesions/lacerations noted. Extremities: No lower extremity edema. Extremities exhibit normal range of motion. Extremities nontender. Neuro: Oriented X 3. Cranial nerve exam: II-XII are grossly intact No motor deficit. No sensory deficit. Reflexes normal. Course Course Course Narrative: This is a Rapid Medical Examination (RME) performed by Celestine Barnes PA-C in triage. Full HPI, ROS, assessment and treatment plan per primary provider in the Main ED. 33 yo female hx of hypothyroid, migraine, obesity, graves disease, ADHD, about 6 weeks gestation w/ LMP 12/03/23 here for eval of vaginal bleeding. seen here for same on 01/13/24 w/ hcg level of 2579, IUP not identified on US. told to return in 2 days for repeat US and hcg. she endorses continued vaginal bleeding however abdominal cramping has resolved. Plan: labs, US Reevaluation(s) Reevaluation #1: Hemodynamically stable VSS, ultrasound raising a suspicion of ectopic , abdominal exam shows no rebound tenderness, no guarding, H&H are stable, patient was seen and examined by Dr. Nam in the emergency department who recommended methotrexate treatment for likely ectopic patient agreed, I was told by the nursing staff that nurse's needs special education and training before administering methotrexate in the emergency department and is not available at the moment, patient will need to be transferred to [facility] for further management of the ectopic . And patient agreed for transfer. Case discussed with who accepted the patient to OBGYN. Time: 13:50 Medical Decision Making Differential Diagnosis Differential Diagnoses: The differential diagnosis associated with the presentation includes ( Ectopic , threatened , severe anemia, hemodynamic instability.) Admission/Observation Consideration of admission/observation: Escalation of care including admission/observation considered Consult Healthcare Provider Management of the patient was discussed with: Oiling Machine Operator ( Dr. Nam) Lab Data MDM Lab Attestation statement: I reviewed the patient's lab results. 01/15/24 11:25 01/15/24 11:59 Labs: Lab Results 01/15/24 01/15/24 Range/Units 11:25 11:59 WBC 7.3 (4.8-10.8) X10*3/uL RBC 4.37 (4.20-5.50) X10*6/uL Hgb 13.3 (12.0-16.0) g/dl Hct 39.7 (37.0-47.0) % MCV 90.8 (80.0-98.0) fL MCH 30.4 (27.0-33.0) pg MCHC 33.5 (31.0-35.0) g/dl RDW 12.1 (11.0-16.0) % Plt Count 229 (160-400) X10*3/uL MPV 10.4 (9.4-12.3) fL Immature Gran % (Auto) 0.4 (0.0-0.4) % Neut % (Auto) 63.7 (45-73) % Lymph % (Auto) 27.1 (20-40) % [place] % (Auto) 5.1 (2-11) % Eos % (Auto) 3.2 (0-4) % Baso % (Auto) 0.5 (0-2) % Lymph # (Auto) 2.0 (1.2-4.9) X10*3/uL [place] # (Auto) 0.4 (0.1-1.2) X10*3/uL Eos # (Auto) 0.2 (0.0-0.4) X10*3/uL Baso # (Auto) 0.0 (0.0-0.2) X10*3/uL Abs Immat Gran (auto) 0.03 (0.00-0.03) X10*3/uL Absolute Neuts (auto) 4.7 (2.0-8.3) x10*3/uL Absolute Nucleated RBC 0.000 (0.0-0.012) X10*3/uL Nucleated RBC % (auto) 0.0 (0.0-0.2) /100WBC Sodium 139 (135-145) mmol/L Potassium 3.7 (3.3-5.1) mmol/L Chloride 107 (96-108) mmol/L Carbon Dioxide 24 (22-29) mmol/L Anion Gap 12 (12-20) BUN 12 (9-16) mg/dL Creatinine 0.76 (0.5-1.4) mg/dL Estim Creat Clear Calc 121.2 Estimated GFR > 60 Random Glucose 95 (60-115) mg/dL Calcium 9.2 (8.4-10.2) mg/dL Total Bilirubin 0.4 (0.0-1.0) mg/dL AST 25 (5-31) U/L ALT 27 (0-31) U/L Alkaline Phosphatase 63 (39-117) U/L Total Protein 7.5 (6.5-8.0) g/dL Albumin 4.3 (3.5-5.0) g/dL Beta HCG, Quant 4168 mIU/mL Blood Type A Positive Independent Interpretation I performed an independent interpretation of an: Ultrasound ( pelvic ultrasound:Sonographic findings suspicious for right ectopic . Small amount of free pelvic fluid. At the time of this dictation, PSA service contacted to alert referring physician. ) Radiology Impression Discussion of test interpretation with radiology: I have reviewed the radiologist's reading. Discharge Plan Discharge Clinical Impression: Ectopic Patient Disposition: [facility] Transfer Details: [place] @ [facility],[phone] Prescriptions: No Action Vitamin Plus Low Iron 27 mg iron- 1 mg tablet 1 tab PO DAILY Qty: 90 4RF Referrals: Femi Alfredo MD [Primary Care Provider] - Jose A Nam MD [Physician] - Print Language: Guyanese
[2024-01-15 11:16] VITALS: BP 110/61; PULSE 82; RESP 16; TEMP 36.3; O2SAT 97; BMI 36.7
[2024-01-15 11:29] LABS: MANUAL DIFF FLAG NO
[2024-01-15 11:30] LABS: Basophils Percent Auto 0.5 % (0-2); Eosinophils Absolute Auto 0.2 X10*3/uL (0.0-0.4); Eosinophils Percent Auto 3.2 % (0-4); Hematocrit 39.7 % (37.0-47.0); Hemoglobin 13.3 g/dl (12.0-16.0); Imm Gran Abs Auto 0.03 X10*3/uL (0.00-0.03); Imm Gran Pct Auto 0.4 % (0.0-0.4); Lymphocytes Percent Auto 27.1 % (20-40); Mean Corpuscular HGB Conc 33.5 g/dl (31.0-35.0); Mean Corpuscular Hemoglobin 30.4 pg (27.0-33.0); Mean Corpuscular Volume 90.8 fL (80.0-98.0); Mean Platelet Volume 10.4 fL (9.4-12.3); Monocytes Absolute Auto 0.4 X10*3/uL (0.1-1.2); Monocytes Percent Auto 5.1 % (2-11); Neutrophils Absolute Auto 4.7 x10*3/uL (2.0-8.3); Neutrophils Percent Auto 63.7 % (45-73); Platelet Count 229 X10*3/uL (160-400); Red Blood Count 4.37 X10*6/uL (4.20-5.50); Red Cell Distribution Width 12.1 % (11.0-16.0); White Blood Count 7.3 X10*3/uL (4.8-10.8)
[2024-01-15 12:20] LABS: Alanine Aminotransferase 27 U/L (0-31); Albumin Level 4.3 g/dL (3.5-5.0); Alkaline Phosphatase 63 U/L (39-117); Anion Gap 12 (12-20); Aspartate Amino Transferase 25 U/L (5-31); Bilirubin Total 0.4 mg/dL (0.0-1.0); Blood Urea Nitrogen 12 mg/dL (9-16); Calcium 9.2 mg/dL (8.4-10.2); Carbon Dioxide 24 mmol/L (22-29); Chloride 107 mmol/L (96-108); Creatinine Clr Calc Pharmacy 121.2; Estimated Glomerular Filt Rate > 60; Glucose Random 95 mg/dL (60-115); Potassium 3.7 mmol/L (3.3-5.1); Sodium 139 mmol/L (135-145); Total Protein 7.5 g/dL (6.5-8.0)
[2024-01-15 12:26] LABS: HCG Quantitative 4168 mIU/mL
--- NOTE | 2024-01-15 12:39 | PM.GYNCN ---
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 The patient went to the emergency 2 days ago with vaginal spotting and pelvic cramping the following workup was done: 01/12 hCG = 2579, ultrasound no IUP or masses The patient was counseled about options of treatment including expectant management, methotrexate or uterine aspiration decided proceed with expectant management. Presenting today for follow-up with no complaints minimal vaginal spotting no pelvic pain or any other concerns. Repeat hcg =4168 Pelvic ultrasound was done cc:: CC: OB PMF Past Medical History Medical History History of attention deficit hyperactivity disorder (ADHD) History of Graves' disease Attention deficit hyperactivity disorder (ADHD) Hyperthyroidism Migraine Closed fracture of tooth Obesity (BMI 30-39.9) Family History Family History Father Hypertension HIV (human immunodeficiency virus infection) Chronic mental illness Diabetes Mother Hypertension Chronic mental illness Depression with anxiety Maternal Grandmother Hypertension Arthritis Maternal Grandfather Hypertension Myocardial infarction Paternal Grandmother Diabetes Osteoporosis Paternal Grandfather Hypertension Alzheimers disease Other No family history of breast cancer Surgical History Surgical History Hx of section Hx of eye surgery Social History Social History Housing: Apartment Alcohol intake: former Patient Tobacco Use Status: Never used Tobacco e-Cigarette/Vaping Use: Never Used Advance Directives: No Advance Directives Information Provided: No service: No Current occupational status: employed 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 Cognitive needs: No Hearing needs: No Vision needs: No Meds Allergies Allergy/AdvReac Type Severity Reaction Status Date / Time metronidazole AdvReac Severe hives Verified 01/15/24 11:17 LIVESTOCK FARMWORKER Physical Exam Vitals Vital signs: Temp Pulse Resp BP Pulse Ox O2 Del Method 97.4 F 82 16 110/61 97 Room Air 01/15/24 11:16 01/15/24 11:16 01/15/24 11:16 01/15/24 11:16 01/15/24 11:16 01/15/24 11:16 BMI result Body Mass Index 36.7 Abdomen Auscultation/Inspection/Palpation: Normal bowel sounds, Soft, Non-distended and No tenderness LIVESTOCK FARMWORKER - Results Labs 01/15/24 11:25 01/15/24 11:59 Labs: Short CBC 01/15/24 Range/Units 11:25 WBC 7.3 (4.8-10.8) X10*3/uL Hgb 13.3 (12.0-16.0) g/dl Hct 39.7 (37.0-47.0) % Plt Count 229 (160-400) X10*3/uL BMP 01/15/24 11:59 Sodium 139 Potassium 3.7 Chloride 107 Carbon Dioxide 24 BUN 12 Creatinine 0.76 Calcium 9.2 Liver Function 01/15/24 Range/Units 11:59 Total Bilirubin 0.4 (0.0-1.0) mg/dL AST 25 (5-31) U/L ALT 27 (0-31) U/L Alkaline Phosphatase 63 (39-117) U/L Albumin 4.3 (3.5-5.0) g/dL Imaging US - abdomen: Radiologist's impression: ITS Impressions Pelvic/Transvag US 01/15/24 11:30 IMPRESSION: Sonographic findings suspicious for right ectopic . Small amount of free pelvic fluid. At the time of this dictation, PSA service contacted to alert referring physician. Electronically signed by: Sarah Vasquez MD 01/15/2024 12:16 PM EDT RP Assessment and Plan (1) Ectopic : Status: Acute Discussed with the patient the findings on ultrasound 1.5 cm right adnexal mass suspicious for ectopic with no evidence of intrauterine , also discussed the patient the rate of rise of HCG above minimum expected level for large majority of intrauterine but could be with this rate of rise in ectopic , addition to possibility of intrauterine or SAB. Discussed with the patient treatment options including the following: Option 1, expected management, repeat HCG every 48 hours with warning signs of SAB versus ectopic, waiting for the clinical picture is a little more clear to the diagnosis of ectopic versus intrauterine with the risk of delaying diagnosis of an ectopic intra-abdominal rupture and bleeding and risk of morbidity mortality and benefit of preventing methotrexate treatment and its possible exposure of a possible intrauterine and risk of teratogenicity and SAB. Option 2, to start with Suction D and C to rule out intrauterine followed by HCG levels and determined SAB versus ectopic, the risk of this approach being termination of a live intrauterine that is early undetected by ultrasound, the risk being delayed diagnosis of ectopic and/or potential consequences. Option 3 is methotrexate treatment; All the pros and cons risks and benefits of this approach were discussed with the patient including but not limited to, failure rate of MTX ~15%, possible exposure of methotrexate teratogenicity to an early intrauterine not diagnosed by ultrasound with the risk of SAB and severe deformities, possibility of a early intrauterine . The patient decided to proceed with methotrexate treatment. Discussed with the patient that there is no certified RN available for methotrexate injection today at [facility] , therefore will transfer to [facility] for further management. All questions answered, the patient verbalized. Discussed the case with Dr. Tijerina in the emergency
[2024-01-15 14:29] VITALS: BP 95/56; PULSE 82; RESP 18; TEMP 36.5; O2SAT 98
== END 2024-01-15 14:20 | disposition short-term general hospital (02) ==
PROVIDERS: Physician Assistant Medical; Emergency Provider Emergency Medicine; PCP Internal Medicine
DX: O00.90 Unspecified ectopic pregnancy without intrauterine pregnancy (principal); Z79.899 Other long term (current) drug therapy
CPT/HCPCS: 36415; 76801; 76817; 80053; 84702; 85025; 86900; 86901; 99284; 99285

== ENCOUNTER → 2024-01-15 11:25 | Outpatient (BNV) | payer OTHER, SELFPAY | PROVIDERS: Emergency Provider Emergency Medicine; PCP Internal Medicine; Visit Provider Obstetrics & Gynecology | DX: O00.90 Unspecified ectopic pregnancy without intrauterine pregnancy (principal) | CPT/HCPCS: 99283 ==

== ENCOUNTER 2024-02-06 10:54 | Outpatient (AMB) | payer OTHER, SELFPAY ==
--- NOTE | 2024-02-06 10:59 | MHC.OFFVIS ---
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) Allergies metronidazole Adverse Reaction (Severe, Verified 02/06/24 11:04) hives HPI Comments Details: Presenting complaining of vulvovaginal itching not associated with vaginal discharge with no foul odor [facility] Medical History History of attention deficit hyperactivity disorder (ADHD) History of Graves' disease Attention deficit hyperactivity disorder (ADHD) Hyperthyroidism Migraine Closed fracture of tooth Obesity (BMI 30-39.9) Surgical History Hx of section Hx of eye surgery Family History Father Hypertension HIV (human immunodeficiency virus infection) Chronic mental illness Diabetes Mother Hypertension Chronic mental illness Depression with anxiety Maternal Grandmother Hypertension Arthritis Maternal Grandfather Hypertension Myocardial infarction Paternal Grandmother Diabetes Osteoporosis Paternal Grandfather Hypertension Alzheimers disease Other No family history of breast cancer Social History Housing: Apartment Alcohol intake: former Patient Tobacco Use Status: Never used Tobacco e-Cigarette/Vaping Use: Never Used service: No Current occupational status: employed Current occupation: [employer] Cognitive needs: No Hearing needs: No Vision needs: No Female Reproductive History Menstrual Age of Menarche: 13 Duration of menses: 6-7 days Date of last menstrual period: 01/23/24 Review of Systems Const All systems reviewed & are unremarkable except as noted in HPI and below Physical Exam Vital Signs: Last Vital Signs BP 104/74 02/06/24 11:05 General: Yes no CVA tenderness External Female Exam: normal external appearance and normal appearance of the urethra Speculum Exam - Vagina: normal appearance of the vagina, normal palpation, no lesions and no masses Speculum Exam - Cervix: normal appearance of the cervix, normal palpation, no lesions, no masses and nontender Bimanual exam- vagina & uterus: normal bimanual exam, normal palpation, uterine size normal, normal palpation, uterine shape normal, No Cervical tenderness present and non-tender Bimanual Exam- Adnexa, other: normal adnexae Back/Spine/Pelvis Back: no CVA tenderness Assessment & Plan Assessment & Plan (1) Vulvovaginitis: Code(s): N76.0 - Acute vaginitis Category: Medical Plan: GC/CT, Bacterial Vaginosis panel taken, Diflucan 150 mg p.o. x1 was sent to the patient's pharmacy. The patient was instructed to call if symptoms don't improve in 48 hours. Medications: New fluconazole 150 mg PO ONCE 1 day 1 tab 0RF Coding Level of Care Code Est Pt Level 3 (97853) Diagnoses Vulvovaginitis N76.0
[2024-02-06 11:05] VITALS: BP 104/74
== END 2024-02-06 11:25 | disposition home or self-care (01) ==
LOC: HO.HWS 10:54
PROVIDERS: PCP Internal Medicine; Visit Provider Obstetrics & Gynecology
DX: N76.0 Acute vaginitis (principal)
CPT/HCPCS: 99213

== ENCOUNTER 2024-02-06 10:54 | Outpatient (REF) | payer OTHER, SELFPAY ==
[2024-02-06 17:21] LABS: Bacterial Vaginosis PCR NEGATIVE (Negative); Candida Group PCR DETECTED (Not Detect); Candida glab krusei PCR NOT DETECTED (Not Detect); Trichomonas vaginalis PCR NOT DETECTED (Not Detect)
[2024-02-06 17:53] LABS: CT PCR NOT DETECTED (Not Detect.); NG PCR NOT DETECTED (Not Detect.)
== END 2024-02-06 10:55 | disposition home or self-care (01) ==
LOC: HO.LNP 10:54
PROVIDERS: PCP Internal Medicine; Visit Provider Obstetrics & Gynecology
DX: B37.31 Acute candidiasis of vulva and vagina (principal); N76.0 Acute vaginitis
CPT/HCPCS: 0352U; 87491; 87591; 99212

== ENCOUNTER 2024-03-18 14:25 | Outpatient (REF) | payer OTHER, SELFPAY ==
--- NOTE | ~2024-03-18 | MR_ITS ---
EXAMINATION: MR KNEE WITHOUT CONTRAST LEFT CLINICAL INFORMATION: Unspecified tear of unspecified meniscus, current injury, left knee, sequela S83.207S. Reduced ROM and instability of knee. Weakness. 3 years ago injured at [facility]. COMPARISON: MR left knee 08/10/2021 . TECHNIQUE: MRI of the knee without contrast was performed using routine sequences on a high-field scanner. FINDINGS: MENISCI: Medial Meniscus: Oblique tibial articular surface tear of the posterior body extending through the posterior horn, increased in prominence when compared to the prior examination. There is attenuation and partial tearing of the posterior root measuring up to 0.3 cm in ML dimension, new when compared to the prior examination. Posterior parameniscal cyst measuring 0.8 x 1.8 x 1.2 cm, new when compared to the prior examination. Lateral Meniscus: Intact. LIGAMENTS: Cruciate: Absence of the anterior cruciate ligament, consistent with a complete tear and ligament resorption. Intact posterior cruciate ligament. Collateral: Intact. EXTENSOR MECHANISM: Intact. ARTICULAR CARTILAGE/BONE: Patellofemoral Compartment: Intact articular cartilage. Medial Compartment: Mild marrow edema at the posterior aspect of the medial tibial plateau which could represent an osseous contusion. Intact articular cartilage. Lateral Compartment: Intact articular cartilage. JOINT FLUID AND BURSAE: Trace joint effusion. MR/MR knee LT wo con IMPRESSION: 1. Oblique tibial articular surface tear of the posterior body and posterior horn of the medial meniscus, increased in prominence when compared to the prior examination. Attenuation and partial tearing of the posterior root, new when compared to the prior examination. New posterior parameniscal cyst measuring up to 1.8 cm. 2. Complete tear of the anterior cruciate ligament, new when compared to the prior examination. 3. Mild marrow edema at the posterior aspect of the medial tibial plateau which could represent an osseous contusion or an intact articular cartilage. 4. Trace joint effusion. Electronically signed by: Aleksandar Kenny MD 03/20/2024 10:41 AM [facility]
--- OUTSIDE RECORDS SUMMARY | 2024-03-18 14:32 | XMS_ITS | Continuity of Care Document ---
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 . lester [facility], [address] [place] [address],[address], [place], [place], [id number], [place] tel:[phone] Converted Locations Attention deficit disorder of childhood with hyperactivity 1-200 0 Z-Converted Provider. . [facility], [address] [place] [address],[address], [place], [place], [id number], tel:[phone] Converted Locations ASTHMA,UNSPEC IFIED TYPE, UNSPECIFIED Dec-2 [...]
== END 2024-03-18 14:26 | disposition home or self-care (01) ==
LOC: HO.MRI 14:25
PROVIDERS: PCP Internal Medicine; Visit Provider Orthopaedic Surgery
DX: S83.512S Sprain of anterior cruciate ligament of left knee, sequela (principal); S83.207S Unspecified tear of unspecified meniscus, current injury, left knee, sequela
CPT/HCPCS: 73721

== ENCOUNTER 2024-04-19 14:41 | Outpatient (AMB) | payer OTHER, SELFPAY ==
[2024-04-19 14:43] VITALS: BMI 36.6
--- NOTE | 2024-04-19 14:43 | MHC.OFFVIS ---
Vital Signs 04/19/24 14:43 Height 5 ft 4 in Weight 213 lb BMI 36.6 Intake Visit Reasons: OV-Left Knee MRI Review Intake Note: Vernell is a 33 year old female who presents today for an MRI review of her left knee. Hx of ACL rupture and medial meniscus tear about 2 years ago, at that time she elected not to undergo surgical intervention IMPRESSION: 1. Oblique tibial articular surface tear of the posterior body and posterior horn of the medial meniscus, increased in prominence when compared to the prior examination. Attenuation and partial tearing of the posterior root, new when compared to the prior examination. New posterior parameniscal cyst measuring up to 1.8 cm. 2. Complete tear of the anterior cruciate ligament, new when compared to the prior examination. 3. Mild marrow edema at the posterior aspect of the medial tibial plateau which could represent an osseous contusion or an intact articular cartilage. 4. Trace joint effusion. Allergies metronidazole Adverse Reaction (Severe, Verified 02/06/24 11:04) hives HPI HPI OV-Left Knee MRI Review : Details: Vernell comes in for MRI review. She injured her left knee about 3 years ago and was seen in spring and diagnosed with an ACL and medial meniscus tear but did not want surgery at that time given financial and family related reasons. She returns today continuing to have discomfort. A repeat MRI was ordered and it shows a absent MRI and a increase medial meniscus tear. [facility] Medical History History of attention deficit hyperactivity disorder (ADHD) History of Graves' disease Attention deficit hyperactivity disorder (ADHD) Hyperthyroidism Migraine Closed fracture of tooth Obesity (BMI 30-39.9) Surgical History Hx of section Hx of eye surgery Family History Father Hypertension HIV (human immunodeficiency virus infection) Chronic mental illness Diabetes Mother Hypertension Chronic mental illness Depression with anxiety Maternal Grandmother Hypertension Arthritis Maternal Grandfather Hypertension Myocardial infarction Paternal Grandmother Diabetes Osteoporosis Paternal Grandfather Hypertension Alzheimers disease Other No family history of breast cancer Social History Housing: Apartment Alcohol intake: former Patient Tobacco Use Status: Never used Tobacco e-Cigarette/Vaping Use: Never Used service: No Current occupational status: employed Current occupation: [employer] Cognitive needs: No Hearing needs: No Vision needs: No Female Reproductive History Menstrual Age of Menarche: 13 Physical Exam Vital Signs: BMI result Body Mass Index 36.6 Extrem Other: 0-125 degrees motion with no effusion. There is a 2+ Abigail's with a negative pivot shift (apprehension). + medial Steinmen's Results Reviewed Results Reviewed: I personally reviewed the MR images. 1. Oblique tibial articular surface tear of the posterior body and posterior horn of the medial meniscus, increased in prominence when compared to the prior examination. Attenuation and partial tearing of the posterior root, new when compared to the prior examination. New posterior parameniscal cyst measuring up to 1.8 cm. 2. Complete tear of the anterior cruciate ligament, new when compared to the prior examination. 3. Mild marrow edema at the posterior aspect of the medial tibial plateau which could represent an osseous contusion or an intact articular cartilage. 4. Trace joint effusion. Assessment & Plan Assessment & Plan (1) Tears of meniscus and ACL of left knee: Code(s): S83.207A - Unspecified tear of unspecified meniscus, current injury, left knee, initial encounter; S83.512A - Sprain of anterior cruciate ligament of left knee, initial encounter Category: Medical Qualifiers: Encounter type: sequela Qualified Code(s): S83.207S - Unspecified tear of unspecified meniscus, current injury, left knee, sequela; S83.512S - Sprain of anterior cruciate ligament of left knee, sequela Plan: 34 yo with ACL deficient knee and medial menicus tear. She has an unstable knee and it is symptomatic and she is unable to engage in recreational activities. I do recommend ACL reconstruction with partial meniscectomy versus possible meniscal repair. I discussed with her the risks, benefits and alternatives including to, but not limited to, the risk of infection, stiffness, need for further surgery, incomplete symptom resolution. She expressed understanding and she will let me know how she would like to proceed. (2) Tear of medial meniscus of left knee: Code(s): S83.242A - Other tear of medial meniscus, current injury, left knee, initial encounter Category: Medical Plan: Coding Level of Care Code Est Pt Level 4 (37863) Diagnoses Tears of meniscus and anterior cruciate ligament of left knee, sequela S83.207S; S83.512S Encounter type: sequela Tear of medial meniscus of left knee S83.242A
== END 2024-04-19 15:38 | disposition home or self-care (01) ==
PROVIDERS: PCP Internal Medicine; Visit Provider Orthopaedic Surgery
DX: S83.512S Sprain of anterior cruciate ligament of left knee, sequela (principal); S83.242A Other tear of medial meniscus, current injury, left knee, initial encounter
CPT/HCPCS: 99214

== ENCOUNTER → 2024-04-19 14:41 | Outpatient (BNVA) | payer OTHER, SELFPAY | PROVIDERS: PCP Internal Medicine; Visit Provider Orthopaedic Surgery | DX: S83.207D Unspecified tear of unspecified meniscus, current injury, left knee, subsequent encounter (principal); S83.512D Sprain of anterior cruciate ligament of left knee, subsequent encounter; S83.242D Other tear of medial meniscus, current injury, left knee, subsequent encounter | CPT/HCPCS: 99212 ==

== ENCOUNTER 2024-05-25 14:51 | Outpatient (AMB) | payer OTHER, SELFPAY ==
[2024-05-25 14:53] VITALS: BP 100/66; PULSE 78; TEMP 36.4; O2SAT 100; BMI 36.9
--- NOTE | 2024-05-25 14:53 | MHC.PC.OV ---
Vital Signs 05/25/24 14:53 Height 5 ft 4 in Weight 215 lb 4 oz BMI 36.9 BP 100/66 Blood Pressure Location Lt brachial Position Sitting Pulse 78 Pulse Source Pulse Oximeter Temp 97.5 F Temp Source Temporal Artery Scan Pulse Oximetry (%) 100 Oxygen Delivery Method Room Air Intake Visit Reasons: pe Intake Note: Patient is here today for a physical. 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 Accompanied by: Self / Same As Patient Allergies metronidazole Adverse Reaction (Severe, Verified 05/25/24 15:40) hives Medication List - Last Reconciled 05/25/24 by Femi Alfredo MD PNV,calcium [id number] acid 27 mg iron- 1 mg ( Vitamins Plus Low Iron) 1 tab PO DAILY Tobacco use date assessed: 05/25/24 Dental Screening Dental Screen Date: 05/25/24 HPI pe HPI Details Patient comes in today for her annual physical examination She has been experiencing increased pain in her left knee for a few years now MRI of the knee done in February 2024 revealed (+) medial meniscal tear as well as a more recent complete ACL tear - findings are similar to the ones seen on her knee MRI in 2021 She was seen by orthopedics last month and was advised to undergo ACL reconstruction with partial meniscectomy versus possible meniscal repair but patient would like some time to consider this She was advised to contact orthopedics again whenever she decides to proceed with surgery Patient states that she feels okay otherwise She denies any headaches or dizziness Denies any chest pains, no shortness of breath No nausea/vomiting, no abdominal pain No change in bowel habits noted She denies any acute urinary symptoms States that she is up-to-date with her yearly gynecology exam and pap smear in September 2024 [facility] Medical History History of attention deficit hyperactivity disorder (ADHD) History of Graves' disease Attention deficit hyperactivity disorder (ADHD) Hyperthyroidism Migraine Closed fracture of tooth Obesity (BMI 30-39.9) Surgical History Hx of section Hx of eye surgery Family History Father Hypertension HIV (human immunodeficiency virus infection) Chronic mental illness Diabetes Mother Hypertension Chronic mental illness Depression with anxiety Maternal Grandmother Hypertension Arthritis Maternal Grandfather Hypertension Myocardial infarction Paternal Grandmother Diabetes Osteoporosis Paternal Grandfather Hypertension Alzheimers disease Other No family history of breast cancer Social History Housing: Apartment Alcohol intake: former Patient Tobacco Use Status: Never used Tobacco e-Cigarette/Vaping Use: Never Used service: No Current occupational status: employed Current occupation: [employer] Cognitive needs: No Hearing needs: No Vision needs: No Female Reproductive History Menstrual Age of Menarche: 13 Questionnaire PHQ-9 Over the last 2 weeks, how often have you been bothered by any of the following problems? 1. Little interest or pleasure in doing things: not at all 2. Feeling down, depressed, or hopeless: not at all 3. Trouble falling or staying asleep, or sleeping too much: not at all 4. Feeling tired or having little energy: not at all 5. Poor appetite or overeating: not at all 6. Feeling bad about yourself - or that you are a failure or have let yourself or your family down: not at all 7. Trouble concentrating on things, such as reading the newspaper or watching television: not at all 8. Moving or speaking so slowly that other people could have noticed. Or the opposite - being so fidgety or restless that you have been moving around a lot more than usual: not at all 9. Thoughts that you would be better off or of hurting yourself in some way: not at all Total score: 0 Depression Screening Interpretation: Negative Depression Screening Done: Yes 32403 - PHQ-9 Billing: Yes Source: Developed by Drs. Acosta Roblero, Flora Cole, Xiang Reed and colleagues, with an educational rhonda from [employer] Thrive Questionnaire Date Thrive assessed: 05/25/24 I am a: Patient What is your living situation today?: I have a steady place to live Within the past 12 months, did the food you bought not last and you didn't have the money to get more?: Often true Within the past 12 months, did you worry whether your food would run out before you got money to buy more?: Never true Do you have trouble paying for medicines?: I choose not to answer this question Do you have trouble getting transportation to medical appointments?: No Do you have trouble paying your heating and electricity bill?: No Do you have trouble taking care of your child, family member or friend?: No Do you have trouble with day-to-day activities such as bathing, preparing meals, shopping, managing finances, etc.?: No Are you currently unemployed and looking for a job?: No Are you interested in more education?: Yes Please select the resources that you would like help with: None Currently or been in a relationship where the following occur: No concerns reported THRIVE Score: 1 AUDIT C Alcohol Use Questionnaire (AUDIT-C) 1. How often do you have a drink containing alcohol?: Never 3. How often do you have six or more drinks on one occasion?: Never Total Score: 0 Score Reviewed/Action Taken: Yes ABELARDO-7 AMB Questionnaire ABELARDO-7 Date ABELARDO - 7 assessed: 05/25/24 Feeling nervous, anxious, or on edge: 0 = Not at all Not being able to stop or control worryin = Not at all Worrying too much about different things: 0 = Not at all Trouble relaxin = Not at all Being so restless that it is hard to sit still: 0 = Not at all Becoming easily annoyed or irritable: 0 = Not at all Feeling afraid as if something awful might happen: 0 = Not at all Total ABELARDO-7 score (0-4 normal; 5-9 mild; 10-14 moderate; 15-21 severe): 0 Source: Developed by Drs. Acosta Roblero, Flora Cole, Xiang Reed and colleagues, with an educational rhonda from [employer] ABELARDO-7 Assessment Billing ABELARDO-7 Assessment Tool: ABELARDO-7 Assessment 29717 Review of Systems Const Denies chills, Denies fatigue, Denies fever(s), Denies headache(s) and Denies malaise Eyes Denies blurry vision, Denies change in vision, Denies irritation and Denies itchy eyes ENT Denies dysphagia, Denies dizziness, Denies otalgia, Denies headache(s), Denies nasal congestion, Denies neck pain, Denies odynophagia, Denies sinus pain and Denies sore throat Card Denies chest pain, Denies rapid heart rate, Denies irregular heart rhythm, Denies palpitations and Denies dyspnea Resp Denies chest congestion, Denies cough, Denies dyspnea and Denies wheezing GI Denies abdominal pain, Denies bloating, Denies constipation, Denies dysphagia, Denies heartburn, Denies diarrhea, Denies nausea, Denies odynophagia and Denies vomiting Denies hematuria, Denies urinary frequency, Denies dysuria, Denies urinary incontinence and Denies urinary urgency Musc Denies back pain, Reports arthralgias (over the left knee), Reports joint swelling (on and off in the left knee), Denies muscle weakness and Denies neck pain Skin/Breast Denies breast pain, Denies breast mass, Denies change in pigmentation, Denies lesions, Denies rash and Denies unusual bruising Neuro Denies dizziness, Denies headache(s) and Denies paresthesias Psych Denies anxiety and Denies depression Endo Denies fatigue and Denies palpitations Ike/Lymph Denies easy bruising Aller/Immun Denies itchy eyes and Denies wheezing Physical exam (Primary Care) Vital Signs: Last Vital Signs Temp 97.5 F 05/25/24 14:53 Pulse 78 05/25/24 14:53 BP 100/66 05/25/24 14:53 Pulse Ox 100 05/25/24 14:53 Oxygen Delivery Method Room Air 05/25/24 14:53 BMI result Body Mass Index 36.9 Tobacco/Smoking Status: Tobacco use Status Tobacco use date assessed 05/25/24 05/25/24 14:54 Patient Tobacco Use Status Never used Tobacco 05/25/24 15:27 e-Cigarette/Vaping Use Never Used 05/25/24 15:27 PHQ-9: PHQ-9 Score PHQ-9: Total score 0 05/25/24 15:50 Depression Screening Interpretation: Negative Thrive Assessment: Date of Thrive Assessment Date Thrive assessed 05/25/24 05/25/24 14:54 Currently or been in a relationship where the following occur: No concerns reported Const General: no acute distress, alert and awake Orientation/consciousness: patient oriented x3 HENMT Head: Yes normocephalic and Yes atraumatic Ears: external ears normal, TM's normal bilaterally and EAC's normal General nose exam: No nasal discharge present Face and sinus: Yes normal facial exam and Yes sinuses nontender Teeth and gingiva: dentition normal Throat: Yes posterior oropharynx normal and Yes tonsils normal (no TP congestion) Eyes Eyelids: Yes eyelids normal Conjunctivae: conjunctivae normal Pupils: Equal, round and reactive pupils present EOM: EOMs intact bilaterally Neck Neck: Yes supple and No lymphadenopathy Thyroid: Thyroid normal Resp Auscultation: clear to auscultation bilaterally, no rales and no wheezes Cardio Rate: regular rate Rhythm: regular rhythm Heart sounds: no murmurs GI Palpation (GI): Soft to palpation, nontender and No hepatosplenomegaly present Auscultation: normal bowel sounds General: Yes no CVA tenderness Back/Spine/Pelvis Back: no CVA tenderness Thoracic/Lumbar Spine: thoracic and lumbar spine normal to inspection Skin Lesions: no lesions Rashes: no rashes Neuro General: patient oriented x3, moves all extremities, no focal motor deficits and CN's II-XI intact bilaterally Cranial nerves: Yes Equal, round and reactive pupils present Cognition (Neuro): normal cognition Gait exam (Neuro): Normal gait present Extrem General: Yes no clubbing, cyanosis or edema Left lower extremity: knee Details: tenderness Location: of the medial joint line and of the infrapatellar area Coding Level of Care Code Est Pt Prev Care 18-39y(69541) Diagnoses Annual physical exam Z00.00 Tears of meniscus and anterior cruciate ligament of left knee, sequela S83.207S; S83.512S Encounter type: sequela History of Graves' disease Z86.39 Migraine without status migrainosus, not intractable, unspecified migraine type G43.909 Migraine type: unspecified Status migrainosus presence: without status migrainosus Intractability: not intractable Obesity (BMI 30-39.9) E66.9 Additional Codes ABELARDO-7 Assessment Billing - ABELARDO-7 Assessment Tool: ABELARDO-7 Assessment 24931 ([id number]) PHQ-9 - 46735 - PHQ-9 Billing: Yes ([id number]) Assessment & Plan Assessment & Plan (1) Annual physical exam: Code(s): Z00.00 - Encounter for general adult medical examination without abnormal findings Category: Medical Plan: Check labs She is up-to-date with her yearly gynecology exam and pap smear (2) Tears of meniscus and ACL of left knee: Code(s): S83.207A - Unspecified tear of unspecified meniscus, current injury, left knee, initial encounter; S83.512A - Sprain of anterior cruciate ligament of left knee, initial encounter Category: Medical Qualifiers: Encounter type: sequela Qualified Code(s): S83.207S - Unspecified tear of unspecified meniscus, current injury, left knee, sequela; S83.512S - Sprain of anterior cruciate ligament of left knee, sequela Plan: MRI of the left knee done back in July 2021 revealed a complete tear of the ACL and a non-displaced oblique tibial articular surface tear of the medial meniscus posterior horn and body Surgical repair was recommended by orthopedics previously but she has not yet undergone surgery due to uncertainties about how long her recovery period will be following surgery as she reportedly cannot afford to be out of work for too long A more recent knee MRI done in February 2024 revealed the same findings and she has again been advised to undergo surgery for her knee (ACL reconstruction with partial meniscectomy versus possible meniscal repair) but patient would like some more time to consider this She was advised to contact orthopedics again whenever she decides to proceed with surgery Patient is currently significantly limited in her mobility due to her left knee pain - her left knee appears unstable knee and is very symptomatic and she is unable to engage in any recreational activities at all, which she states has contributed to her weight gain over the past few years States that the main obstacle she has in going forward with surgery is that she can not afford to be out of work for too long as this will limit her income - states that she has bills to pay (3) History of Graves' disease: Code(s): Z86.39 - Personal history of other endocrine, nutritional and metabolic disease Category: Medical Plan: Patient was treated with Methimazole in the past but has not been on any Rx for her thyroid in a few years now Will check her TFTs for follow up (4) Migraine: Code(s): G43.909 - Migraine, unspecified, not intractable, without status migrainosus Category: Medical Qualifiers: Migraine type: unspecified Status migrainosus presence: without status migrainosus Intractability: not intractable Qualified Code(s): G43.909 - Migraine, unspecified, not intractable, without status migrainosus Plan: Stable/controlled Reinforced avoidance of any potential migraine headache triggers States that she just takes OTC meds PRN for her headaches (5) Obesity (BMI 30-39.9): Code(s): E66.9 - Obesity, unspecified Category: Medical Plan: Reinforced diet; exercise and weight loss are difficult at this time due to her left knee issues, which has been bothering her for a few years now Patient is currently inquiring as to whether the GLP-1s would be an option for her to help her lose weight at this time Have advised her to get her labs done first to make sure she does not have any other issues or conditions that will preclude her from being able to take the GLP-1s Also advised her that in order to lose weight effectively, the GLP-1s to be used in combination with diet and exercise and with her current knee issues, exercising would likely be impossible at this time so she is recommended to try to get her knee issues addressed first Lastly, have advised her that her insurance will likely not cover the GLP-1 inhibitors for weight loss unless she is enrolled in a certified weight management program Plan Follow-up in 3 months Orders: Orders Hemoglobin A1c 05/25/24 E11.9 - Type 2 diabetes mellitus without complications, Z00.00 - Encounter for general adult medical examination without abnormal findings Thyroid Stimulating Hormone 05/25/24 Z86.39 - Personal history of other endocrine, nutritional and metabolic disease Free T4 (Free Thyroxine) 05/25/24 Z86.39 - Personal history of other endocrine, nutritional and metabolic disease Complete Blood Count Auto Diff 05/25/24 D64.9 - Anemia, unspecified, Z00.00 - Encounter for general adult medical examination without abnormal findings Lipid Panel 05/25/24 E78.00 - Pure hypercholesterolemia, unspecified, Z00.00 - Encounter for general adult medical examination without abnormal findings Comprehensive [place]. Panel Fast 05/25/24 E78.00 - Pure hypercholesterolemia, unspecified, Z00.00 - Encounter for general adult medical examination without abnormal findings UA CC w/rflx Micro + Cult 05/25/24 R30.0 - Dysuria, Z00.00 - Encounter for general adult medical examination without abnormal findings Vitamin D 25-OH Total 05/25/24 E55.9 - Vitamin D deficiency, unspecified, Z00.00 - Encounter for general adult medical examination without abnormal findings
--- OUTSIDE RECORDS SUMMARY | 2024-05-25 17:03 | XMS_ITS | Continuity of Care Document ---
Author Organization [facility] Address [address] [address],[address] [place] [address] Phone Care Team Providers Care Green Chainer Name Role Phone Unavailable Unavailable Unavailable Medications [...] Date Provider Providers Copied on Encounter Isac [facility], [address] [place] [address],[address], [place], [place], [id number], tel:[phone] Converted Locations No Information 0 200 1 No Information lester [facility], [address] [place] [address],[address], [place], [place], [id number], tel:[phone] Converted Locations Adjustment disorder with mixed anxiety and depressed moodUnspecifi ed disturbance of conduct 200 0 Z-Converted Provider. . lester [facility], [address] [place] [address],[address], [place], [place], [id number], [place] tel:[phone] Converted Locations Attention deficit disorder of childhood with hyperactivity 1-200 0 Z-Converted Provider. . [facility], [address] [place] [address],[address], [place], [place], [id number], tel:[phone] Converted Locations ASTHMA,UNSPEC IFIED TYPE, UNSPECIFIED Dec-2 [...]
== END 2024-05-25 15:57 | disposition home or self-care (01) ==
PROVIDERS: PCP Internal Medicine; Visit Provider Internal Medicine
DX: Z00.00 Encounter for general adult medical examination without abnormal findings (principal); G43.909 Migraine, unspecified, not intractable, without status migrainosus; E66.9 Obesity, unspecified; Z68.36 Body mass index [BMI] 36.0-36.9, adult; Z86.39 Personal history of other endocrine, nutritional and metabolic disease; S83.207S Unspecified tear of unspecified meniscus, current injury, left knee, sequela; S83.512S Sprain of anterior cruciate ligament of left knee, sequela

== ENCOUNTER → 2024-05-25 14:51 | Outpatient (BNVA) | payer OTHER, SELFPAY | PROVIDERS: PCP Internal Medicine; Visit Provider Internal Medicine | DX: Z00.00 Encounter for general adult medical examination without abnormal findings (principal); S83.207S Unspecified tear of unspecified meniscus, current injury, left knee, sequela; S83.512S Sprain of anterior cruciate ligament of left knee, sequela; G43.909 Migraine, unspecified, not intractable, without status migrainosus; E66.9 Obesity, unspecified; Z86.39 Personal history of other endocrine, nutritional and metabolic disease; Z68.36 Body mass index [BMI] 36.0-36.9, adult; Z71.3 Dietary counseling and surveillance | CPT/HCPCS: 96127; 99395 ==

== ENCOUNTER 2024-06-19 09:02 | Outpatient (REF) | payer OTHER, SELFPAY ==
[2024-06-19 09:27] LABS: MANUAL DIFF FLAG NO
[2024-06-19 09:43] LABS: Basophils Percent Auto 0.4 % (0-2); Eosinophils Absolute Auto 0.3 X10*3/uL (0.0-0.4); Eosinophils Percent Auto 4.3 % (0-4); Hematocrit 40.4 % (37.0-47.0); Hemoglobin 13.7 g/dl (12.0-16.0); Imm Gran Abs Auto 0.02 X10*3/uL (0.00-0.03); Imm Gran Pct Auto 0.3 % (0.0-0.4); Lymphocytes Percent Auto 30.3 % (20-40); Mean Corpuscular HGB Conc 33.9 g/dl (31.0-35.0); Mean Corpuscular Hemoglobin 29.9 pg (27.0-33.0); Mean Corpuscular Volume 88.2 fL (80.0-98.0); Mean Platelet Volume 10.9 fL (9.4-12.3); Monocytes Absolute Auto 0.3 X10*3/uL (0.1-1.2); Monocytes Percent Auto 4.9 % (2-11); Neutrophils Percent Auto 59.8 % (45-73); Platelet Count 212 X10*3/uL (160-400); Red Blood Count 4.58 X10*6/uL (4.20-5.50); Red Cell Distribution Width 12.1 % (11.0-16.0); White Blood Count 6.7 X10*3/uL (4.8-10.8)
[2024-06-19 09:51] LABS: Estimated Average Glucose 111 mg/dL; Hemoglobin A1c % 5.5 % (<6.0)
[2024-06-19 10:35] LABS: Alanine Aminotransferase 32 U/L (0-31); Alkaline Phosphatase 67 U/L (39-117); Anion Gap 8 (12-20); Aspartate Amino Transferase 48 U/L (5-31); Bilirubin Total 0.6 mg/dL (0.0-1.0); Blood Urea Nitrogen 14 mg/dL (9-16); Carbon Dioxide 24 mmol/L (22-29); Chloride 110 mmol/L (96-108); Cholesterol 139 mg/dL (<200); Estimated Glomerular Filt Rate > 60; Glucose Fasting 105 mg/dL (60-99); HDL Cholesterol 39 mg/dL (>40); LDL Cholesterol Calculated 85 mg/dL (<100); Potassium 3.9 mmol/L (3.3-5.1); Sodium 138 mmol/L (135-145); Total Protein 6.8 g/dL (6.5-8.0); Triglycerides 76 mg/dL (<150)
[2024-06-19 10:54] LABS: Free T4 (Free Thyroxine) 1.11 ng/dL (0.71-1.85); Thyroid Stimulating Hormone 2.15 uIU/mL (0.32-4.0); Vitamin D 25-OH Total 14.8 ng/mL (>30)
== END 2024-06-19 09:03 | disposition home or self-care (01) ==
LOC: HO.LAB 09:02
PROVIDERS: PCP Internal Medicine; Visit Provider Internal Medicine
DX: Z00.00 Encounter for general adult medical examination without abnormal findings (principal); E11.9 Type 2 diabetes mellitus without complications; Z86.39 Personal history of other endocrine, nutritional and metabolic disease; E78.00 Pure hypercholesterolemia, unspecified; E55.9 Vitamin D deficiency, unspecified; D64.9 Anemia, unspecified
CPT/HCPCS: 36415; 80053; 80061; 82306; 83036; 84439; 84443; 85025; 86580

== ENCOUNTER 2024-06-19 09:44 | Outpatient (AMB) | payer OTHER, SELFPAY ==
--- NOTE | 2024-06-19 10:23 | AM.OFFVISNUR ---
Intake Visit Reasons: PPD PLant Allergies metronidazole Adverse Reaction (Severe, Verified 05/25/24 15:40) hives Office Meds tuberculin PPD 5 tub. unit/0.1 mL intradermal injection solution Performing Provider: Femi Alfredo MD [facility] Administered by: Keysha Pham RN on 06/19/24 10:24 Dose Route Admin Location Dispensed Lot Number Expiration Date [facility] Medical Records Analyst 0.1 mL intradermal left forearm 0.1 mL [id number] 08/24/26 97116-041-86 [employer] Assessment & Plan Assessment & Plan Orders: Orders AMB PPD Planted Today Z11.1 - Encounter for screening for respiratory tuberculosis Medications: New tuberculin PPD 0.1 mL intradermal ONCE 0.1 mL 0RF Z11.1 - Encounter for screening for respiratory tuberculosis Coding
--- OUTSIDE RECORDS SUMMARY | 2024-06-19 11:06 | XMS_ITS | Continuity of Care Document ---
Author Organization [facility] Address [address] [address],[address] [place] [address] Phone Care Team Providers Care Order Packer Name Role Phone Unavailable Unavailable Unavailable Medications [...] Date Provider Providers Copied on Encounter Isac [facility], [address] [place] [address],[address], [place], [place], [id number], tel:[phone] Converted Locations No Information 0 200 1 No Information lestre [facility], [address] [place] [address],[address], [place], [place], [id number], tel:[phone] Converted Locations Adjustment disorder with mixed anxiety and depressed moodUnspecifi ed disturbance of conduct 200 0 Z-Converted Provider. . lester [facility], [address] [place] [address],[address], [place], [place], [id number], [place] tel:[phone] Converted Locations Attention deficit disorder of childhood with hyperactivity 1-200 0 Z-Converted Provider. . [facility], [address] [place] [address],[address], [place], [place], [id number], tel:[phone] Converted Locations ASTHMA,UNSPEC IFIED TYPE, UNSPECIFIED Dec-2 [...]
== END 2024-06-19 10:29 | disposition home or self-care (01) ==
LOC: HO.HMCH 09:47
PROVIDERS: PCP Internal Medicine; Visit Provider Internal Medicine
DX: Z11.1 Encounter for screening for respiratory tuberculosis (principal)

== ENCOUNTER 2024-06-20 17:00 | Outpatient (REF) | payer OTHER, SELFPAY ==
[2024-06-20 19:24] LABS: Appearance Urine Clear; Color Urine Yellow; Glucose Urine UA Negative (Negative); Leukocyte Esterase Urine Negative (Negative); Nitrite Urine Negative (Negative); Specific Gravity - Urine 1.025 (1.005-1.025); Urine Blood Negative (Negative); Urine Ketones Negative (Negative); Urine Protein Negative (Neg-Trace)
== END 2024-06-20 17:01 | disposition home or self-care (01) ==
LOC: HO.LNP 17:00
PROVIDERS: Visit Provider Internal Medicine
DX: Z00.00 Encounter for general adult medical examination without abnormal findings (principal); R30.0 Dysuria
CPT/HCPCS: 81003

== ENCOUNTER 2024-06-22 10:24 | Outpatient (REF) | payer OTHER, SELFPAY ==
--- NOTE | ~2024-06-22 | XR_ITS ---
EXAMINATION: XR CHEST CLINICAL INFORMATION: R76.11 - Nonspecific reaction to tuberculin skin test without active tub... COMPARISON: January 18, 2019. TECHNIQUE: 2 views of the chest were obtained. FINDINGS: No consolidation, pleural effusion or pneumothorax. Cardiomediastinal silhouette size is normal. Osseous structures are intact. XR/XR chest 2V IMPRESSION: No acute airspace disease. Stable. Electronically signed by: Fredy Ferraro MD 06/22/2024 10:54 AM EDT
== END 2024-06-22 10:25 | disposition home or self-care (01) ==
LOC: HO.XRAY 10:24
PROVIDERS: PCP Physician Assistant; Visit Provider Physician Assistant
DX: R76.11 Nonspecific reaction to tuberculin skin test without active tuberculosis (principal)
CPT/HCPCS: 71046

== ENCOUNTER → 2024-06-22 10:27 | Outpatient (BNV) | payer OTHER, SELFPAY | PROVIDERS: PCP Physician Assistant; Visit Provider Radiology Diagnostic Radiology | DX: R76.11 Nonspecific reaction to tuberculin skin test without active tuberculosis (principal) | CPT/HCPCS: 71046 ==

== ENCOUNTER 2024-10-02 15:17 | Outpatient (AMB) | payer OTHER, SELFPAY ==
--- OUTSIDE RECORDS SUMMARY | 2000-08-28 20:00 | XMS_ITS | Continuity of Care Document ---
Author Organization [facility] Address [address] [address],[address] [place] [address] Phone Care Team Providers Care Book Cleaner Name Role Phone Unavailable Unavailable Unavailable Medications [...] Date Provider Providers Copied on Encounter Isac [facility], [address] [place] [address],[address], [place], [place], [id number], tel:[phone] Converted Locations No Information 0 200 1 No Information lester [facility], [address] [place] [address],[address], [place], [place], [id number], tel:[phone] Converted Locations Adjustment disorder with mixed anxiety and depressed moodUnspecifi ed disturbance of conduct 200 0 Z-Converted Provider. . lester [facility], [address] [place] [address],[address], [place], [place], [id number], [place] tel:[phone] Converted Locations Attention deficit disorder of childhood with hyperactivity 1-200 0 Z-Converted Provider. . [facility], [address] [place] [address],[address], [place], [place], [id number], tel:[phone] Converted Locations ASTHMA,UNSPEC IFIED TYPE, UNSPECIFIED Dec-2 [...]
[2024-10-02 15:22] VITALS: BP 102/76; PULSE 82; O2SAT 98; BMI 37.5
--- NOTE | 2024-10-02 15:22 | A.OFFPC_ITS ---
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 Accompanied by: Self / Same As Patient Allergies metronidazole Adverse Reaction (Severe, Verified 10/07/24 15:59) hives Medication List - Last Reconciled 10/02/24 by Femi Alfredo MD PNV,calcium 26-efnp-ktbhd acid 27 mg iron- 1 mg ( Vitamins Plus Low Iron) 1 tab PO DAILY Tobacco use date assessed: 10/02/24 Dental Screening Dental Screen Date: 10/02/24 Did you have a dental visit in the last 12 months?: Yes Did you have a dental problem in the last 6 months where you did not have access to dental care?: No Was dental information given to patient?: Patient has dentist HPI Follow Up HPI Details Patient comes in today for her follow up visit States that she feels okay She denies any headaches or dizziness Denies any chest pains, no shortness of breath No nausea/vomiting, no abdominal pain No change in bowel habits noted She would like to go over in detail the results of her labs done a few months ago [facility] Medical History (Updated 10/08/24 @ 05:59 by Femi Alfredo MD) Impaired fasting glucose Elevated LFTs Vitamin D deficiency History of attention deficit hyperactivity disorder (ADHD) History of Graves' disease Attention deficit hyperactivity disorder (ADHD) Hyperthyroidism Migraine Closed fracture of tooth Obesity (BMI 30-39.9) Surgical History Hx of section Hx of eye surgery Family History Father Hypertension HIV (human immunodeficiency virus infection) Chronic mental illness Diabetes Mother Hypertension Chronic mental illness Depression with anxiety Maternal Grandmother Hypertension Arthritis Maternal Grandfather Hypertension Myocardial infarction Paternal Grandmother Diabetes Osteoporosis Paternal Grandfather Hypertension Alzheimers disease Other No family history of breast cancer Social History Housing: Apartment Alcohol intake: former Patient Tobacco Use Status: Never used Tobacco e-Cigarette/Vaping Use: Never Used service: No Current occupational status: employed 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 1. Little interest or pleasure in doing things: not at all 2. Feeling down, depressed, or hopeless: not at all 3. Trouble falling or staying asleep, or sleeping too much: not at all 4. Feeling tired or having little energy: not at all 5. Poor appetite or overeating: not at all 6. Feeling bad about yourself - or that you are a failure or have let yourself or your family down: not at all 7. Trouble concentrating on things, such as reading the newspaper or watching television: not at all 8. Moving or speaking so slowly that other people could have noticed. Or the opposite - being so fidgety or restless that you have been moving around a lot more than usual: not at all 9. Thoughts that you would be better off or of hurting yourself in some way: not at all Total score: 0 Depression Screening Interpretation: Negative Depression Screening Done: Yes 57463 - PHQ-9 Billing: Yes Source: Developed by Drs. Acosta Roblero, Flora Cole, Xiang Reed and colleagues, with an educational rhonda from [facility]. Thrive Questionnaire Date Thrive assessed: 10/02/24 I am a: Patient What is your living situation today?: I have a steady place to live Within the past 12 months, did the food you bought not last and you didn't have the money to get more?: Often true Within the past 12 months, did you worry whether your food would run out before you got money to buy more?: Never true Do you have trouble paying for medicines?: I choose not to answer this question Do you have trouble getting transportation to medical appointments?: No Do you have trouble paying your heating and electricity bill?: No Do you have trouble taking care of your child, family member or friend?: No Do you have trouble with day-to-day activities such as bathing, preparing meals, shopping, managing finances, etc.?: No Are you currently unemployed and looking for a job?: Yes Are you interested in more education?: Yes Please select the resources that you would like help with: None Currently or been in a relationship where the following occur: No concerns reported THRIVE Score: 1 AUDIT C Alcohol Use Questionnaire (AUDIT-C) 1. How often do you have a drink containing alcohol?: Never 3. How often do you have six or more drinks on one occasion?: Never Total Score: 0 Score Reviewed/Action Taken: Yes ABELARDO-7 AMB Questionnaire ABELARDO-7 Date ABELARDO - 7 assessed: 10/02/24 Feeling nervous, anxious, or on edge: 0 = Not at all Not being able to stop or control worryin = Not at all Worrying too much about different things: 0 = Not at all Trouble relaxin = Not at all Being so restless that it is hard to sit still: 0 = Not at all Becoming easily annoyed or irritable: 0 = Not at all Feeling afraid as if something awful might happen: 0 = Not at all Total ABELARDO-7 score (0-4 normal; 5-9 mild; 10-14 moderate; 15-21 severe): 0 Source: Developed by Drs. Acosta Roblero, Flora Cole, Xiang Reed and colleagues, with an educational rhonda from [facility]. ABELARDO-7 Assessment Billing ABELARDO-7 Assessment Tool: ABELARDO-7 Assessment 09435 Review of Systems Const Denies chills, Denies fatigue, Denies fever(s) and Denies headache(s) ENT Denies dysphagia, Denies dizziness, Denies otalgia, Denies headache(s), Denies neck pain, Denies odynophagia and Denies sore throat Card Denies chest pain, Denies palpitations and Denies dyspnea Resp Denies chest congestion, Denies cough and Denies dyspnea GI Denies abdominal pain, Denies constipation, Denies dysphagia, Denies heartburn, Denies diarrhea, Denies nausea, Denies odynophagia and Denies vomiting Denies difficulty voiding, Denies nocturia, Denies dysuria and Denies urinary urgency Musc Denies back pain and Denies neck pain Skin/Breast Denies rash Neuro Denies dizziness and Denies headache(s) Endo Denies fatigue and Denies palpitations Physical exam (Primary Care) Vital Signs: Last Vital Signs Pulse 82 10/02/24 15:22 BP 102/76 10/02/24 15:22 Pulse Ox 98 10/02/24 15:22 Oxygen Delivery Method Room Air 10/02/24 15:22 BMI result Body Mass Index 37.5 Tobacco/Smoking Status: Tobacco use Status Tobacco use date assessed 10/02/24 10/02/24 15:33 Patient Tobacco Use Status Never used Tobacco 10/02/24 15:33 e-Cigarette/Vaping Use Never Used 10/02/24 15:33 PHQ-9: PHQ-9 Score PHQ-9: Total score 0 10/02/24 15:54 Depression Screening Interpretation: Negative Thrive Assessment: Date of Thrive Assessment Date Thrive assessed 10/02/24 10/02/24 15:33 Currently or been in a relationship where the following occur: No concerns reported Const General: no acute distress and alert HENMT Ears: TM's normal bilaterally and EAC's normal Throat: Yes posterior oropharynx normal and Yes tonsils normal (no TP congestion) Neck Neck: Yes supple and No lymphadenopathy Thyroid: Thyroid normal Resp Auscultation: clear to auscultation bilaterally, no rales and no wheezes Cardio Rate: regular rate Rhythm: regular rhythm Heart sounds: no murmurs GI Palpation (GI): Soft to palpation and nontender Auscultation: normal bowel sounds General: Yes no CVA tenderness Back/Spine/Pelvis Back: no CVA tenderness Thoracic/Lumbar Spine: No lumbar spinal tenderness Skin General skin exam: no rashes or lesions noted Extrem General: Yes no clubbing, cyanosis or edema Results Reviewed Results Reviewed: Laboratory Tests 06/19/24 06/20/24 09:24 17:00 WBC 6.7 Hgb 13.7 Hct 40.4 Plt Count 212 Sodium 138 Potassium 3.9 Creatinine 0.72 Estimated GFR > 60 Fasting Glucose 105 H Hemoglobin A1c % 5.5 Calcium 9.0 AST 48 H ALT 32 H Triglycerides 76 Cholesterol 139 LDL Cholesterol, Calc 85 HDL Cholesterol 39 L 25-OH Vitamin D Total 14.8 L TSH 2.15 Free T4 1.11 Ur Specific [place] 1.025 Urine Protein Negative Urine Glucose (UA) Negative Urine Blood Negative Urine Nitrite Negative Ur Leukocyte Esterase Negative Coding Level of Care Code Est Pt Level 4 (77686) Diagnoses Tears of meniscus and anterior cruciate ligament of left knee, sequela S83.207S; S83.512S Encounter type: sequela History of Graves' disease Z86.39 Migraine without status migrainosus, not intractable, unspecified migraine type G43.909 Migraine type: unspecified Status migrainosus presence: without status migrainosus Intractability: not intractable Vitamin D deficiency E55.9 Elevated LFTs R79.89 Impaired fasting glucose R73.01 Obesity (BMI 30-39.9) E66.9 Additional Codes ABELARDO-7 Assessment Billing - ABELARDO-7 Assessment Tool: ABELARDO-7 Assessment 69054 ([id number]) PHQ-9 - 72529 - PHQ-9 Billing: Yes ([id number]) Assessment & Plan Assessment & Plan (1) Tears of meniscus and ACL of left knee: Code(s): S83.207A - Unspecified tear of unspecified meniscus, current injury, left knee, initial encounter; S83.512A - Sprain of anterior cruciate ligament of left knee, initial encounter Category: Medical Qualifiers: Encounter type: sequela Qualified Code(s): S83.207S - Unspecified tear of unspecified meniscus, current injury, left knee, sequela; S83.512S - Sprain of anterior cruciate ligament of left knee, sequela Plan: MRI of the left knee done back in July 2021 revealed a complete tear of the ACL and a non-displaced oblique tibial articular surface tear of the medial meniscus posterior horn and body Surgical repair was recommended by orthopedics previously but she has not yet undergone surgery due to uncertainties about how long her recovery period will be following surgery as she reportedly cannot afford to be out of work for too long A more recent knee MRI done in February 2024 revealed the same findings and she has again been advised to undergo surgery for her knee (ACL reconstruction with partial meniscectomy versus possible meniscal repair) but patient would like some more time to consider this She was advised to contact orthopedics again whenever she decides to proceed with surgery Patient is currently significantly limited in her mobility due to her left knee pain - her left knee appears unstable knee and is very symptomatic and she is unable to engage in any recreational activities at all, which she states has contributed to her weight gain over the past few years States that the main obstacle she has in going forward with surgery is that she can not afford to be out of work for too long as this will limit her income - states that she has bills to pay (2) History of Graves' disease: Code(s): Z86.39 - Personal history of other endocrine, nutritional and metabolic disease Category: Medical Plan: Patient was treated with Methimazole in the past but has not been on any Rx for her thyroid in a few years now Her TFTs were normal oh her labs done back in May 2024 (3) Migraine: Code(s): G43.909 - Migraine, unspecified, not intractable, without status migrainosus Category: Medical Qualifiers: Migraine type: unspecified Status migrainosus presence: without status migrainosus Intractability: not intractable Qualified Code(s): G43.909 - Migraine, unspecified, not intractable, without status migrainosus Plan: Stable/controlled Reinforced avoidance of any potential migraine headache triggers States that she just takes OTC meds PRN for her headaches (4) Vitamin D deficiency: Code(s): E55.9 - Vitamin D deficiency, unspecified Category: Medical Plan: She is advised that her Vitamin D level was low on her labs done a few months ago Will start her on Vitamin D3 2000 units QD (5) Elevated LFTs: Code(s): R79.89 - Other specified abnormal findings of blood chemistry Category: Medical Plan: Her LFTs were slightly elevated on her labs done back in May 2024 - advised that this is likely related to her weight and should improve with weight loss Will continue to monitor her LFTs regularly (6) Impaired fasting glucose: Code(s): R73.01 - Impaired fasting glucose Category: Medical Plan: His FBS was slightly elevated at 105 mg/dL on his recent labs although his HgbA1c is normal at 5.5% Reinforce low calories/low carb diet (7) Obesity (BMI 30-39.9): Code(s): E66.9 - Obesity, unspecified Category: Medical Plan: Reinforced diet; exercise and weight loss are difficult at this time due to her left knee issues, which has been bothering her for a few years now Per her request, will try starting her on Zepbound 2.5 mg SQ once a week to help her lose weight Plan Follow up in 4 months Medications: New tirzepatide (weight loss) (Zepbound) for 4 weeks 2.5 mg (0.5 mL) subcut QWEEK 2 mL 0RF 4 weeks E66.9 - Obesity, unspecified cholecalciferol (vitamin D3) 50 mcg PO DAILY 90 caps 3RF 90 days E55.9 - Vitamin D deficiency, unspecified
== END 2024-10-02 16:14 | disposition home or self-care (01) ==
LOC: HO.HMCH 15:18
PROVIDERS: PCP Internal Medicine; Visit Provider Internal Medicine
DX: G43.909 Migraine, unspecified, not intractable, without status migrainosus (principal); E66.9 Obesity, unspecified; Z68.37 Body mass index [BMI] 37.0-37.9, adult; E55.9 Vitamin D deficiency, unspecified; S83.207S Unspecified tear of unspecified meniscus, current injury, left knee, sequela; S83.512S Sprain of anterior cruciate ligament of left knee, sequela; Z86.39 Personal history of other endocrine, nutritional and metabolic disease; R79.89 Other specified abnormal findings of blood chemistry; R73.01 Impaired fasting glucose

== ENCOUNTER → 2024-10-02 15:17 | Outpatient (BNVA) | payer OTHER, SELFPAY | PROVIDERS: PCP Internal Medicine; Visit Provider Internal Medicine | DX: S83.207D Unspecified tear of unspecified meniscus, current injury, left knee, subsequent encounter (principal); S83.512D Sprain of anterior cruciate ligament of left knee, subsequent encounter; G43.909 Migraine, unspecified, not intractable, without status migrainosus; E55.9 Vitamin D deficiency, unspecified; R79.89 Other specified abnormal findings of blood chemistry; R73.01 Impaired fasting glucose; E66.9 Obesity, unspecified; Z68.37 Body mass index [BMI] 37.0-37.9, adult; Z86.39 Personal history of other endocrine, nutritional and metabolic disease; Z13.31 Encounter for screening for depression; Z13.30 Encounter for screening examination for mental health and behavioral disorders, unspecified | CPT/HCPCS: 96127; 99212 ==

== ENCOUNTER 2024-10-07 15:28 | Emergency (ER) | payer OTHER, SELFPAY ==
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
[2024-10-07 15:53] VITALS: BP 119/85; PULSE 82; RESP 16; TEMP 36.5; O2SAT 100; BMI 37.1
[2024-10-07 16:25] VITALS: BP 116/69; PULSE 88; RESP 11; O2SAT 97
[2024-10-07 16:32] LABS: MANUAL DIFF FLAG NO
[2024-10-07 16:33] LABS: Hematocrit 40.1 % (37.0-47.0); Hemoglobin 13.9 g/dl (12.0-16.0); Imm Gran Abs Auto 0.03 X10*3/uL (0.00-0.03); Imm Gran Pct Auto 0.2 % (0.0-0.4); Lymphocytes Absolute Auto 1.8 X10*3/uL (1.2-4.9); Mean Corpuscular HGB Conc 34.7 g/dl (31.0-35.0); Mean Corpuscular Hemoglobin 30.7 pg (27.0-33.0); Mean Corpuscular Volume 88.5 fL (80.0-98.0); NRBC Abs Auto 0.000 X10*3/uL (0.0-0.012); NRBC Pct Auto 0.0 /100WBC (0.0-0.2); Platelet Count 258 X10*3/uL (160-400); Red Blood Count 4.53 X10*6/uL (4.20-5.50); White Blood Count 13.1 X10*3/uL (4.8-10.8)
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
[2024-10-07 16:46] LABS: Alanine Aminotransferase 31 U/L (0-31); Albumin Level 4.7 g/dL (3.5-5.0); Alkaline Phosphatase 74 U/L (39-117); Anion Gap 13 (12-20); Aspartate Amino Transferase 28 U/L (5-31); Blood Urea Nitrogen 17 mg/dL (9-16); Calcium 9.3 mg/dL (8.4-10.2); Carbon Dioxide 24 mmol/L (22-29); Chloride 108 mmol/L (96-108); Creatinine Clr Calc Pharmacy 108.0; Estimated Glomerular Filt Rate > 60; Potassium 4.0 mmol/L (3.3-5.1); Sodium 141 mmol/L (135-145); Total Protein 7.6 g/dL (6.5-8.0)
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
--- NOTE | 2024-10-07 17:47 | MHC.EDTECH ---
placed pt on comode.
[2024-10-07] MEDS: iohexoL 350 MG/ML 100 ML INFUS..BTL IV (18:10)
[2024-10-07 18:29] VITALS: BP 119/70; PULSE 88; RESP 28; TEMP 36.6; O2SAT 100
[2024-10-07] MEDS: Lidocaine HCl 1 % 20 ML VIAL 10 ML INFILTRATI (19:35)
[2024-10-07 19:57] VITALS: BP 117/61; PULSE 81; RESP 15; TEMP 36.7; O2SAT 98
[2024-10-07 20:03] VITALS: BP 117/61; PULSE 81; RESP 15; TEMP 36.7; O2SAT 98
== END 2024-10-07 20:13 | disposition home or self-care (01) ==
PROVIDERS: Emergency Provider Internal Medicine; PCP Internal Medicine
DX: S62.603A Fracture of unspecified phalanx of left middle finger, initial encounter for closed fracture (principal); S69.82XA Other specified injuries of left wrist, hand and finger(s), initial encounter; R51.9 Headache, unspecified; R07.81 Pleurodynia; M79.645 Pain in left finger(s); R10.2 Pelvic and perineal pain; M54.2 Cervicalgia; V27.49XA Other motorcycle driver injured in collision with fixed or stationary object in traffic accident, initial encounter; Y93.9 Activity, unspecified; Y92.410 Unspecified street and highway as the place of occurrence of the external cause; Y99.8 Other external cause status
CPT/HCPCS: 29130; 36415; 70450; 71260; 72125; 73130; 80053; 84702; 85025; 99284; J2003; Q9967

== ENCOUNTER → 2024-10-07 17:51 | Outpatient (BNV) | payer OTHER, SELFPAY | PROVIDERS: Emergency Provider Internal Medicine; PCP Internal Medicine; Visit Provider Radiology Diagnostic Radiology | DX: M25.512 Pain in left shoulder (principal); R51.9 Headache, unspecified; S09.90XA Unspecified injury of head, initial encounter; S62.633A Displaced fracture of distal phalanx of left middle finger, initial encounter for closed fracture; S62.634A Displaced fracture of distal phalanx of right ring finger, initial encounter for closed fracture; V89.2XXA Person injured in unspecified motor-vehicle accident, traffic, initial encounter | CPT/HCPCS: 70450; 71260; 72125; 73130 ==

== ENCOUNTER 2024-10-09 13:07 | Outpatient (AMB) | payer OTHER, SELFPAY ==
--- OUTSIDE RECORDS SUMMARY | 2000-08-28 20:00 | XMS_ITS | Continuity of Care Document ---
Author Organization [facility] Address [address] [address],[address] [place] [address] Phone Care Team Providers Care Operation Shift Supervisor Name Role Phone Unavailable Unavailable Unavailable Medications [...] Date Provider Providers Copied on Encounter Isac [facility], [address] [place] [address],[address], [place], [place], [id number], tel:[phone] Converted Locations No Information 0 200 1 No Information lester [facility], [address] [place] [address],[address], [place], [place], [id number], tel:[phone] Converted Locations Adjustment disorder with mixed anxiety and depressed moodUnspecifi ed disturbance of conduct 200 0 Z-Converted Provider. . lester [facility], [address] [place] [address],[address], [place], [place], [id number], [place] tel:[phone] Converted Locations Attention deficit disorder of childhood with hyperactivity 1-200 0 Z-Converted Provider. . [facility], [address] [place] [address],[address], [place], [place], [id number], tel:[phone] Converted Locations ASTHMA,UNSPEC IFIED TYPE, UNSPECIFIED Dec-2 [...] Record Payers Payer name Insurance type Covered libertarian ID Authoriza tion(s) No Information Social History [...]
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
[2024-10-09 13:21] VITALS: BMI 37.1
== END 2024-10-09 14:23 | disposition home or self-care (01) ==
LOC: HO.HOS 13:08
PROVIDERS: PCP Internal Medicine; Visit Provider Orthopaedic Surgery
DX: S62.633B Displaced fracture of distal phalanx of left middle finger, initial encounter for open fracture (principal); S62.635B Displaced fracture of distal phalanx of left ring finger, initial encounter for open fracture
CPT/HCPCS: 99204

== ENCOUNTER → 2024-10-09 13:07 | Outpatient (BNVA) | payer OTHER, SELFPAY | PROVIDERS: PCP Internal Medicine; Visit Provider Orthopaedic Surgery | DX: S62.633B Displaced fracture of distal phalanx of left middle finger, initial encounter for open fracture (principal) | CPT/HCPCS: 99202 ==

== ENCOUNTER 2024-10-10 09:00 | Day surgery (SDC) | payer OTHER, SELFPAY ==
--- OUTSIDE RECORDS SUMMARY | 2000-08-28 20:00 | XMS_ITS | Continuity of Care Document ---
Author Organization [facility] Address [address] [address],[address] [place] [address] Phone Care Team Providers Care Liner Inserter Name Role Phone Unavailable Unavailable Unavailable Medications [...] Date Provider Providers Copied on Encounter Isac [facility], [address] [place] [address],[address], [place], [place], [id number], tel:[phone] Converted Locations No Information 0 200 1 No Information lester [facility], [address] [place] [address],[address], [place], [place], [id number], tel:[phone] Converted Locations Adjustment disorder with mixed anxiety and depressed moodUnspecifi ed disturbance of conduct 200 0 Z-Converted Provider. . lester [facility], [address] [place] [address],[address], [place], [place], [id number], [place] tel:[phone] Converted Locations Attention deficit disorder of childhood with hyperactivity 1-200 0 Z-Converted Provider. . [facility], [address] [place] [address],[address], [place], [place], [id number], tel:[phone] Converted Locations ASTHMA,UNSPEC IFIED TYPE, UNSPECIFIED Dec-2 [...] Record Payers Payer name Insurance type Covered constitution party ID Authoriza tion(s) No Information Social [...]
--- NOTE | 2024-10-10 09:31 | PC.NURSE ---
pharmacy did not receive orders from Dr. James office to mix lidocaine injections per pharmacy. Medications pulled from PACU pixus with Dr. James.
[2024-10-10 09:50] VITALS: BP 129/69; PULSE 85; RESP 18; TEMP 36.6; O2SAT 96
[2024-10-10 09:56] VITALS: BMI 37.5
--- NOTE | 2024-10-10 10:23 | MHC.SHP ---
Pre-Procedural Eval Section A - 24 Hr Update-Section A only Date of Service: 10/10/24 The patient is an INPATIENT: No Changes since office visit: No Cold of Flu in the past 2 weeks, No New Medical Problems, No Changes in Medication and No Patient answered all questions The patient has been examined within 24 hours of the surgical procedure. The History & Physical has been completed within 30 days and I have reviewed it.: Yes Section B - Complete if H&P > 30 days Chief Complaint: FX of Meddle and Ring finger, Allergies: Allergies Allergy/AdvReac Type Severity Reaction Status Date / Time metronidazole AdvReac Severe hives Verified 10/10/24 09:59 Plan Diagnosis/Plan: Unchanged I have reviewed the history and physical and performed a pertinent physical examination on my patient. No changes have occurred unless specified. Time Spent With Patient Time: Total time managing care of this patient today ____ minutes.
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
[2024-10-10 12:47] VITALS: BP 123/61; PULSE 83; RESP 18; O2SAT 98
== END 2024-10-10 12:48 | disposition home or self-care (01) ==
PROVIDERS: PCP Internal Medicine; Visit Provider Orthopaedic Surgery
PROC: (CPT 26765; principal; 2024-10-10 09:50)
DX: S62.633B Displaced fracture of distal phalanx of left middle finger, initial encounter for open fracture (principal); S62.635B Displaced fracture of distal phalanx of left ring finger, initial encounter for open fracture; R20.0 Anesthesia of skin; V86.56XA Driver of dirt bike or motor/cross bike injured in nontraffic accident, initial encounter; Y93.55 Activity, bike riding; Y92.9 Unspecified place or not applicable; Y99.9 Unspecified external cause status; Z88.8 Allergy status to other drugs, medicaments and biological substances
CPT/HCPCS: 26765 ×2; 11760 ×2; J0165; J2003; J2004

== ENCOUNTER → 2024-10-10 09:00 | Outpatient (BNV) | payer OTHER, SELFPAY | PROVIDERS: PCP Internal Medicine; Visit Provider Orthopaedic Surgery | DX: S62.633B Displaced fracture of distal phalanx of left middle finger, initial encounter for open fracture (principal); S62.635B Displaced fracture of distal phalanx of left ring finger, initial encounter for open fracture; S61.313A Laceration without foreign body of left middle finger with damage to nail, initial encounter; S61.315A Laceration without foreign body of left ring finger with damage to nail, initial encounter | CPT/HCPCS: 11012; 11760 ==

== ENCOUNTER 2024-10-16 14:27 | Outpatient (REF) | payer OTHER, SELFPAY ==
[2024-10-16 17:22] LABS: Bacterial Vaginosis PCR NEGATIVE (Negative); Candida Group PCR DETECTED (Not Detect); Candida glab krusei PCR NOT DETECTED (Not Detect); Trichomonas vaginalis PCR NOT DETECTED (Not Detect)
== END 2024-10-16 14:28 | disposition home or self-care (01) ==
LOC: HO.LNP 14:27
PROVIDERS: PCP Internal Medicine; Visit Provider Advanced Practice Midwife
DX: L29.2 Pruritus vulvae (principal); Z79.2 Long term (current) use of antibiotics; N98.9 Complication associated with artificial fertilization, unspecified; B37.31 Acute candidiasis of vulva and vagina; Z79.899 Other long term (current) drug therapy
CPT/HCPCS: 81515; 99212

== ENCOUNTER 2024-10-16 14:27 | Outpatient (AMB) | payer OTHER, SELFPAY ==
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
[2024-10-16 14:36] VITALS: BP 110/26; BMI 37.3
== END 2024-10-16 16:22 | disposition home or self-care (01) ==
LOC: HO.HWS 14:28
PROVIDERS: PCP Internal Medicine; Visit Provider Advanced Practice Midwife
DX: L29.2 Pruritus vulvae (principal)
CPT/HCPCS: 99213

== ENCOUNTER 2024-10-24 13:04 | Outpatient (AMB) | payer OTHER, SELFPAY ==
[2024-10-24 13:24] VITALS: BMI 37.2
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
== END 2024-10-24 14:17 | disposition home or self-care (01) ==
LOC: HO.HOS 13:04
PROVIDERS: PCP Internal Medicine; Visit Provider Orthopaedic Surgery
DX: S62.633B Displaced fracture of distal phalanx of left middle finger, initial encounter for open fracture (principal); S62.635B Displaced fracture of distal phalanx of left ring finger, initial encounter for open fracture
CPT/HCPCS: 99024

== ENCOUNTER 2024-10-24 13:04 | Outpatient (REF) | payer OTHER, SELFPAY ==
--- NOTE | ~2024-10-24 | XR_ITS ---
EXAMINATION: XR HAND 3 OR MORE VIEWS LEFT HISTORY: M79.642 - Pain in left hand COMPARISON: Comparison is made with the prior examination dated 10/07/2024. FINDINGS: Three views of the left hand are submitted. Osseous mineralization is normal. Again seen are fractures of the distal esophagus 3rd and 4th fingers. The fracture lines remain visible. The joint spaces are preserved. The soft tissues are unremarkable. XR/XR hand LT min 3V IMPRESSION: Fractures of the distal esophagus of the 3rd and 4th fingers without significant change. Electronically signed by: Acosta Marquez MD 10/24/2024 01:44 PM EDT
== END 2024-10-24 13:05 | disposition home or self-care (01) ==
LOC: HO.HOSX 13:04
PROVIDERS: PCP Internal Medicine; Visit Provider Orthopaedic Surgery
DX: S62.633B Displaced fracture of distal phalanx of left middle finger, initial encounter for open fracture (principal); S62.635B Displaced fracture of distal phalanx of left ring finger, initial encounter for open fracture; M79.642 Pain in left hand; V86.56XA Driver of dirt bike or motor/cross bike injured in nontraffic accident, initial encounter; Y93.55 Activity, bike riding
CPT/HCPCS: 73130; 99212

== ENCOUNTER → 2024-10-24 13:19 | Outpatient (BNV) | payer OTHER, SELFPAY | PROVIDERS: PCP Internal Medicine; Visit Provider Radiology Diagnostic Radiology | DX: M79.642 Pain in left hand (principal) | CPT/HCPCS: 73130 ==

== ENCOUNTER 2024-10-25 08:07 | Outpatient (REF) | payer OTHER, SELFPAY ==
--- OUTSIDE RECORDS SUMMARY | 2000-08-28 20:00 | XMS_ITS | Continuity of Care Document ---
Author Organization [facility] Address [address] [address],[address] [place] [address] Phone Care Team Providers Care Rehabilitation Case Coordinator Name Role Phone Unavailable Unavailable Unavailable Medications [...] Date Provider Providers Copied on Encounter Isac [facility], [address] [place] [address],[address], [place], [place], [id number], tel:[phone] Converted Locations No Information 0 200 1 No Information lester [facility], [address] [place] [address],[address], [place], [place], [id number], tel:[phone] Converted Locations Adjustment disorder with mixed anxiety and depressed moodUnspecifi ed disturbance of conduct 200 0 Z-Converted Provider. . lester [facility], [address] [place] [address],[address], [place], [place], [id number], [place] tel:[phone] Converted Locations Attention deficit disorder of childhood with hyperactivity 1-200 0 Z-Converted Provider. . [facility], [address] [place] [address],[address], [place], [place], [id number], tel:[phone] Converted Locations ASTHMA,UNSPEC IFIED TYPE, UNSPECIFIED Dec-2 [...] Record Payers Payer name Insurance type Covered democrat ID Authoriza tion(s) No Information Social History [...]
== END 2024-10-25 08:08 | disposition home or self-care (01) ==
LOC: HO.HOSX 08:07
PROVIDERS: Visit Provider Orthopaedic Surgery
DX: Z13.89 Encounter for screening for other disorder (principal)

== ENCOUNTER 2024-11-05 11:34 | Outpatient (REF) | payer OTHER, SELFPAY ==
--- NOTE | ~2024-11-05 | XR_ITS ---
EXAMINATION: XR HAND 3 OR MORE VIEWS LEFT HISTORY: M79.642 - Pain in left hand COMPARISON: Comparison is made with the prior examination dated 10/24/2024. FINDINGS: Three views of the left hand are submitted. Osseous mineralization is normal. Again seen are mildly displaced fractures of the distal yair of the middle and ring fingers. The fracture lines remain visible. The joint spaces are preserved. The soft tissues are unremarkable. XR/XR hand LT min 3V IMPRESSION: Mildly displaced fractures of the distal tuft of the middle and ring fingers without change. Electronically signed by: Acosta Marquez MD 11/05/2024 12:45 PM EDT
== END 2024-11-05 11:35 | disposition home or self-care (01) ==
LOC: HO.HOSX 11:34
PROVIDERS: PCP Internal Medicine
DX: S62.635B Displaced fracture of distal phalanx of left ring finger, initial encounter for open fracture (principal); S62.633B Displaced fracture of distal phalanx of left middle finger, initial encounter for open fracture; M79.642 Pain in left hand; X58.XXXD Exposure to other specified factors, subsequent encounter
CPT/HCPCS: 73130; 99212

== ENCOUNTER 2024-11-05 11:34 | Outpatient (AMB) | payer OTHER, SELFPAY ==
--- OUTSIDE RECORDS SUMMARY | 2000-08-28 20:00 | XMS_ITS | Continuity of Care Document ---
Author Organization [facility] Address [address] [address],[address] [place] [address] Phone Care Team Providers Care Chemical Equipment Sales Engineer Name Role Phone Unavailable Unavailable Unavailable Medications [...] Date Provider Providers Copied on Encounter Isac [facility], [address] [place] [address],[address], [place], [place], [id number], tel:[phone] Converted Locations No Information 0 200 1 No Information lester [facility], [address] [place] [address],[address], [place], [place], [id number], tel:[phone] Converted Locations Adjustment disorder with mixed anxiety and depressed moodUnspecifi ed disturbance of conduct 200 0 Z-Converted Provider. . lester [facility], [address] [place] [address],[address], [place], [place], [id number], [place] tel:[phone] Converted Locations Attention deficit disorder of childhood with hyperactivity 1-200 0 Z-Converted Provider. . [facility], [address] [place] [address],[address], [place], [place], [id number], tel:[phone] Converted Locations ASTHMA,UNSPEC IFIED TYPE, UNSPECIFIED Dec-2 [...] Record Payers Payer name Insurance type Covered alliance party ID Authoriza tion(s) No Information Social [...]
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
[2024-11-05 11:43] VITALS: BMI 37.2
== END 2024-11-05 12:22 | disposition home or self-care (01) ==
LOC: HO.HOS 11:35
PROVIDERS: PCP Internal Medicine
DX: S62.633B Displaced fracture of distal phalanx of left middle finger, initial encounter for open fracture (principal); S62.635B Displaced fracture of distal phalanx of left ring finger, initial encounter for open fracture
CPT/HCPCS: 99024

== ENCOUNTER → 2024-11-05 11:56 | Outpatient (BNV) | payer OTHER, SELFPAY | PROVIDERS: PCP Internal Medicine; Visit Provider Radiology Diagnostic Radiology | DX: S62.631G Displaced fracture of distal phalanx of left index finger, subsequent encounter for fracture with delayed healing (principal) | CPT/HCPCS: 73130 ==

== ENCOUNTER 2024-11-15 13:18 | Emergency (ER) | payer OTHER, SELFPAY ==
--- NOTE | ~2024-11-15 | XR_ITS ---
EXAMINATION: XR CHEST CLINICAL INFORMATION: chest pain COMPARISON: None available. TECHNIQUE: 2 views of the chest were obtained. FINDINGS: No significant abnormality is noted involving the heart, lungs, mediastinum, bony thorax or soft tissues. XR/XR chest 2V IMPRESSION: No acute disease Electronically signed by: Darrion Motley MD 11/15/2024 02:20 PM EDT RP
--- NOTE | 2024-11-15 13:19 | ECG_ITS ---
Test Reason : cp Blood Pressure : */* mmHG Vent. Rate : 92 BPM Atrial Rate : 92 BPM P-R Int : 138 ms QRS Dur : 76 ms QT Int : 366 ms P-R-T Axes : 49 39 10 degrees QTcB Int : 452 ms Normal sinus rhythm with sinus arrhythmia Possible Left atrial enlargement Borderline ECG When compared with ECG of 07-Sep-2016 10:21, No significant change was found Referred By: Generic ED Physician Electronically Signed By: MAXIMILIAN HINKLE MD
[2024-11-15 13:30] VITALS: BP 117/75; PULSE 83; RESP 16; TEMP 36.1; O2SAT 97; BMI 36.9
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
[2024-11-15 13:43] LABS: MANUAL DIFF FLAG NO
[2024-11-15 13:45] LABS: Hematocrit 39.0 % (37.0-47.0); Hemoglobin 13.1 g/dl (12.0-16.0); Imm Gran Abs Auto 0.01 X10*3/uL (0.00-0.03); Imm Gran Pct Auto 0.2 % (0.0-0.4); Lymphocytes Absolute Auto 2.0 X10*3/uL (1.2-4.9); Mean Corpuscular HGB Conc 33.6 g/dl (31.0-35.0); Mean Corpuscular Hemoglobin 30.0 pg (27.0-33.0); Mean Corpuscular Volume 89.4 fL (80.0-98.0); NRBC Abs Auto 0.000 X10*3/uL (0.0-0.012); NRBC Pct Auto 0.0 /100WBC (0.0-0.2); Platelet Count 259 X10*3/uL (160-400); Red Blood Count 4.36 X10*6/uL (4.20-5.50); White Blood Count 6.6 X10*3/uL (4.8-10.8)
[2024-11-15 13:47] VITALS: PULSE 85
--- NOTE | 2024-11-15 13:48 | PC.NURSE ---
Pt roomed changed and placed on full monitor VSS NAD Pt states CP as in triage for over a week. No associated sx except states sometimes neck pain.
[2024-11-15 13:54] LABS: INTERNATIONAL NORM RATIO 1.0 (0.9-1.1); Prothrombin Time 11.8 SEC (10.9-12.4)
[2024-11-15 14:01] LABS: Alanine Aminotransferase 17 U/L (0-31); Albumin Level 4.3 g/dL (3.5-5.0); Alkaline Phosphatase 67 U/L (39-117); Anion Gap 10 (12-20); Aspartate Amino Transferase 23 U/L (5-31); Blood Urea Nitrogen 14 mg/dL (9-16); Calcium 9.1 mg/dL (8.4-10.2); Carbon Dioxide 26 mmol/L (22-29); Chloride 109 mmol/L (96-108); Creatinine Clr Calc Pharmacy 130.8; Estimated Glomerular Filt Rate > 60; Potassium 3.9 mmol/L (3.3-5.1); Sodium 141 mmol/L (135-145); Total Protein 7.0 g/dL (6.5-8.0)
[2024-11-15 14:08] LABS: Troponin-I High Sensitivity < 2.7 ng/L (<3.5-17.0)
[2024-11-15 14:22] LABS: D Dimer High Sensitivity < 150 NG/ML
[2024-11-15 14:31] LABS: Resp Syncy Virus RNA Qual PCR NEGATIVE (Negative); SARS COV2 PCR INHOUSE NEGATIVE (Negative)
[2024-11-15 16:00] VITALS: BP 117/75; PULSE 83; RESP 16; TEMP 36.1; O2SAT 97
== END 2024-11-15 16:01 | disposition home or self-care (01) ==
PROVIDERS: Registered Nurse Emergency; Emergency Provider Emergency Medicine; PCP Internal Medicine
DX: M94.0 Chondrocostal junction syndrome [Tietze] (principal); M54.12 Radiculopathy, cervical region; M54.2 Cervicalgia
CPT/HCPCS: 36415; 71046; 80053; 84484; 84702; 85025; 85379; 85610; 87637; 93005; 99283; 99284

== ENCOUNTER → 2024-11-15 13:19 | Outpatient (BNV) | payer OTHER, SELFPAY | PROVIDERS: Emergency Provider Emergency Medicine; PCP Internal Medicine; Visit Provider Internal Medicine Cardiovascular Disease | DX: R07.9 Chest pain, unspecified (principal) | CPT/HCPCS: 93010 ==

== ENCOUNTER → 2024-11-15 13:33 | Outpatient (BNV) | payer OTHER, SELFPAY | PROVIDERS: Emergency Provider Emergency Medicine; PCP Internal Medicine; Visit Provider Radiology Diagnostic Radiology | DX: R07.9 Chest pain, unspecified (principal) | CPT/HCPCS: 71046 ==

== ENCOUNTER 2024-11-21 11:38 | Outpatient (REF) | payer OTHER, SELFPAY ==
--- NOTE | ~2024-11-21 | XR_ITS ---
EXAMINATION: XR HAND 3 OR MORE VIEWS LEFT HISTORY: M79.642 - Pain in left hand COMPARISON: Comparison is made with the prior examination dated 11/05/2024. FINDINGS: Three views of the left hand are submitted. Osseous mineralization is normal. Again seen are comminuted fractures of the distal yair of the 3rd and 4th fingers. The fracture lines remain visible. The joint spaces are preserved. The soft tissues are unremarkable. XR/XR hand LT min 3V IMPRESSION: Comminuted fractures of the distal yair of the 3rd and 4th fingers without significant change. Electronically signed by: Acosta Marquez MD 11/21/2024 12:32 PM EDT
== END 2024-11-21 11:39 | disposition home or self-care (01) ==
LOC: HO.HOSX 11:38
PROVIDERS: PCP Internal Medicine
DX: S62.633B Displaced fracture of distal phalanx of left middle finger, initial encounter for open fracture (principal); S62.635B Displaced fracture of distal phalanx of left ring finger, initial encounter for open fracture; X58.XXXA Exposure to other specified factors, initial encounter
CPT/HCPCS: 73130; 99212

== ENCOUNTER 2024-11-21 11:38 | Outpatient (AMB) | payer OTHER, SELFPAY ==
--- OUTSIDE RECORDS SUMMARY | 2000-08-28 20:00 | XMS_ITS | Continuity of Care Document ---
Author Organization [facility] Address [address] [address],[address] [place] [address] Phone Care Team Providers Care Welder Operator Name Role Phone Unavailable Unavailable Unavailable Medications [...] Date Provider Providers Copied on Encounter Isac [facility], [address] [place] [address],[address], [place], [place], [id number], tel:[phone] Converted Locations No Information 0 200 1 No Information lester [facility], [address] [place] [address],[address], [place], [place], [id number], tel:[phone] Converted Locations Adjustment disorder with mixed anxiety and depressed moodUnspecifi ed disturbance of conduct 200 0 Z-Converted Provider. . lester [facility], [address] [place] [address],[address], [place], [place], [id number], [place] tel:[phone] Converted Locations Attention deficit disorder of childhood with hyperactivity 1-200 0 Z-Converted Provider. . [facility], [address] [place] [address],[address], [place], [place], [id number], tel:[phone] Converted Locations ASTHMA,UNSPEC IFIED TYPE, UNSPECIFIED Dec-2 [...] Record Payers Payer name Insurance type Covered republican ID Authoriza tion(s) No Information Social History Type Description Quantity Date Captured Comments Sex Female Smoking Status No Information Sexual Orientation Straight or heterosexual Chief Complaint And Reason For Visit No [...]
[2024-11-21 11:43] VITALS: BMI 36.9
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
== END 2024-11-21 13:15 | disposition home or self-care (01) ==
LOC: HO.HOS 11:39
PROVIDERS: PCP Internal Medicine
DX: S62.633B Displaced fracture of distal phalanx of left middle finger, initial encounter for open fracture (principal); S62.635B Displaced fracture of distal phalanx of left ring finger, initial encounter for open fracture
CPT/HCPCS: 99024

== ENCOUNTER → 2024-11-21 12:09 | Outpatient (BNV) | payer OTHER, SELFPAY | PROVIDERS: PCP Internal Medicine; Visit Provider Radiology Diagnostic Radiology | DX: S62.633G Displaced fracture of distal phalanx of left middle finger, subsequent encounter for fracture with delayed healing (principal) | CPT/HCPCS: 73130 ==

== ENCOUNTER 2025-02-04 13:32 | Outpatient (AMB) | payer OTHER, SELFPAY ==
--- OUTSIDE RECORDS SUMMARY | 2000-08-28 19:00 | XMS_ITS | Continuity of Care Document ---
Author Organization [facility] Address [address] [address],[address] [place] [address] Phone Care Team Providers Care Store Specialist Name Role Phone Unavailable Unavailable Unavailable Medications Medication Instructions Dosage Effective Dates (start - stop) Status Comments albuterol sulfate 5 mg/mL (0.5 %) Neb Solution 2 EVERY FOUR HOURS NEEDED - Active BUSPAR 1 Two Times A Day - No L onger Active Advance Directives Directive Yes / No Effective Date File Name No Information Encounters Encounter Description Practice Location Reason(s) For Visit Diagnoses Date Provider Providers Copied on Encounter Isac [facility], [address] [place] [address],[address], [place], [place], [id number], tel:[phone] Converted Locations No Information 0 200 1 No Information lester [facility], [address] [place] [address],[address], [place], [place], [id number], tel:[phone] Converted Locations Adjustment disorder with mixed anxiety and depressed moodUnspecifi ed disturbance of conduct 200 0 Z-Converted Provider. . lester [facility], [address] [place] [address],[address], [place], [place], [id number], [place] tel:[phone] Converted Locations Attention deficit disorder of childhood with hyperactivity 1-200 0 Z-Converted Provider. . [facility], [address] [place] [address],[address], [place], [place], [id number], tel:[phone] Converted Locations ASTHMA,UNSPEC IFIED TYPE, UNSPECIFIED Dec-2 3-199 8 Z-Converted Provider. . Family History Family Member Type Diagnosis Age At Onset No Information Immunizations Vaccine Date Status Comments Diph Tetanus ascell Pertussis administere d Source: New Immunization Record Hepatitis B (a) CHILD administered Source : New Immunization Record Hepatitis B (a) CHILD administered Source : New Immunization Record Hepatitis B (a) CHILD administered Source : New Immunization Record Hemophilus Influenza B administered Sourc e: New Immunization Record Diph Tetanus ascell Pertussis administere d Source: New Immunization Record Measles Mumps Rubella administered Source : New Immunization Record Measles Mumps Rubella administered Source : New Immunization Record Diph Tetanus ascell Pertussis administere d Source: New Immunization Record Hemophilus Influenza B administered Sourc e: New Immunization Record Hemophilus Influenza B administered Sourc e: New Immunization Record Diph Tetanus ascell Pertussis administere d Source: New Immunization Record Diph Tetanus ascell Pertussis administere d Source: New Immunization Record Hemophilus Influenza B administered Sourc e: New Immunization Record Payers Payer name Insurance type Covered green party ID Authoriza tion(s) No Information Social History Type Description Quantity Date Captured Comments Sex Female Smoking Status No Information Chief Complaint And Reason For Visit No Information Reason For Referral Reason For Referral No Information History Of Present Illness Encounter Date Complaint History Of Prese nt Illness No Information Functional Status Date Functional Assessmen t No Information Instructions Date Instruction Additional Infor mation No Information Assessments Type Assessment Date No Information Patient Care Teams Name Effective Dates (start - stop) Status Members No Information
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
[2025-02-04 13:57] VITALS: BP 116/78; PULSE 97; O2SAT 97; BMI 36.4
== END 2025-02-04 14:54 | disposition home or self-care (01) ==
LOC: HO.HMCH 13:34
PROVIDERS: PCP Internal Medicine; Visit Provider Internal Medicine
DX: G43.909 Migraine, unspecified, not intractable, without status migrainosus (principal); E55.9 Vitamin D deficiency, unspecified; E66.9 Obesity, unspecified; Z68.36 Body mass index [BMI] 36.0-36.9, adult; Z86.39 Personal history of other endocrine, nutritional and metabolic disease; R79.89 Other specified abnormal findings of blood chemistry; R73.01 Impaired fasting glucose; L50.9 Urticaria, unspecified; S62.633 Displaced fracture of distal phalanx of left middle finger; S62.635S Displaced fracture of distal phalanx of left ring finger, sequela; S83.207S Unspecified tear of unspecified meniscus, current injury, left knee, sequela; S83.512S Sprain of anterior cruciate ligament of left knee, sequela

== ENCOUNTER → 2025-02-04 13:32 | Outpatient (BNVA) | payer OTHER, SELFPAY | PROVIDERS: PCP Internal Medicine; Visit Provider Internal Medicine | DX: G43.909 Migraine, unspecified, not intractable, without status migrainosus (principal); E66.9 Obesity, unspecified; E55.9 Vitamin D deficiency, unspecified; R79.89 Other specified abnormal findings of blood chemistry; R73.01 Impaired fasting glucose; L50.9 Urticaria, unspecified; S62.633 Displaced fracture of distal phalanx of left middle finger; S62.635S Displaced fracture of distal phalanx of left ring finger, sequela; S83.207S Unspecified tear of unspecified meniscus, current injury, left knee, sequela; S83.512S Sprain of anterior cruciate ligament of left knee, sequela; Z86.39 Personal history of other endocrine, nutritional and metabolic disease; Z68.36 Body mass index [BMI] 36.0-36.9, adult | CPT/HCPCS: 96127; 99212 ==

== ENCOUNTER 2025-03-14 14:11 | Outpatient (AMB) | payer OTHER, SELFPAY ==
[2025-03-14 14:16] VITALS: BP 96/64; BMI 36.6
--- NOTE | 2025-03-14 14:16 | MHC.OFFVIS ---
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 yeast inf, requests std testing. Candle Wrapper Required: No Allergies metronidazole Adverse Reaction (Severe, Verified 03/14/25 14:20) hives fluconazole Adverse Reaction (Mild, Verified 03/14/25 14:22) Itching, redness Medication List - Last Reconciled 03/14/25 by Daria Maya LPN cholecalciferol (vitamin D3) 50 mcg PO DAILY 90 days Is last menstrual period known: Yes (03/10/25) Last menstrual period: 03/10/25 Post menopausal: No Patient : No Do you need a note to return to daycare/school/sports/work: No HPI Comments Details: Patient is a premenopausal woman presenting for annual examination. 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 Regular monthly menses. Currently is sexually active. She denies vaginal itching or irritation. STI screening offered; she accepts, declines blood work. She admits to gaining 100 lb since 2021 when she had depression. She is interested in eating healthier. Last pap smear 2022, negative. [facility] Medical History Impaired fasting glucose Elevated LFTs Vitamin D deficiency History of attention deficit hyperactivity disorder (ADHD) History of Graves' disease Attention deficit hyperactivity disorder (ADHD) Hyperthyroidism Migraine Closed fracture of tooth Obesity (BMI 30-39.9) Surgical History Hx of section Hx of eye surgery Family History Father Hypertension HIV (human immunodeficiency virus infection) Chronic mental illness Diabetes Mother Hypertension Chronic mental illness Depression with anxiety Maternal Grandmother Hypertension Arthritis Maternal Grandfather Hypertension Myocardial infarction Paternal Grandmother Diabetes Osteoporosis Paternal Grandfather Hypertension Alzheimers disease Other No family history of breast cancer Social History Housing: Apartment Are you a primary healthcare prof to a significant other at home: No Do you presently have visiting nurse or other home services: No Alcohol intake: former Comment: fall with motorcycle Patient Tobacco Use Status: Never used Tobacco e-Cigarette/Vaping Use: Never Used service: No Current occupational status: employed 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, 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 Current occupational exposures/hazards: No Cognitive needs: No Hearing needs: No Vision needs: No Female Reproductive History Menstrual Age of Menarche: 13 Date of last menstrual period: 03/10/25 control method: none Total pregnancies: 5 Full term: 2 Premature: 1 Number of Living Children: 3 Ab spontaneous: 1 Ectopics: 1 Date of last pap smear: 10/11/22 History of abnormal pap smear: No Review of Systems Const All systems reviewed & are unremarkable except as noted in HPI and below Reports as per HPI Eyes Reports no additional complaints ENT Reports no additional complaints Card Reports no additional complaints Resp Reports no additional complaints GI Reports as per HPI and Reports no additional complaints Reports as per HPI Musc Reports no additional complaints Skin/Breast Reports as per HPI Neuro Reports no additional complaints Psych Reports no additional complaints Endo Reports no additional complaints Ike/Lymph Reports no additional complaints Aller/Immun Reports no additional complaints Physical Exam Const General: cooperative, healthy appearing, no acute distress, well developed and alert Orientation/consciousness: patient oriented x3 HEENT Head: Yes normal to inspection Eyes General: appearance normal, both eyes and all related structures Neck Neck: Yes normal visual inspection Thyroid: Thyroid normal Chest Chest palpation & inspection: normal inspection of the chest and other (no puckering, dimpling, peau de orange, retraction, discharge, masses) Breast/axilla inspection: normal inspection of the breasts Breast/axilla palpation: normal palpation of the breasts Resp Effort & Inspection: normal respiratory effort GI Inspection: Yes normal to inspection Palpation (GI): Soft to palpation Rectal Exam - Female: deferred General: Yes bladder normal to palpation External Female Exam: normal external appearance and normal appearance of the urethra Speculum Exam - Vagina: normal appearance of the vagina, normal palpation, normal vaginal discharge and vaginal bleeding Speculum Exam - Cervix: normal appearance of the cervix and normal palpation Bimanual exam- vagina & uterus: normal bimanual exam, normal palpation, uterine size normal, bladder normal to palpation, normal palpation and non-tender Bimanual Exam- Adnexa, other: no masses OB/external & speculum: vaginal bleeding Skin General skin exam: no rashes or lesions noted Rashes: no rashes Neuro General: patient oriented x3 Cognition (Neuro): normal cognition Extrem General: Yes normal to inspection Psych Attitude: cooperative Thought process: Normal thought process present Assessment & Plan Assessment & Plan (1) Encounter for well woman exam with routine gynecological exam: Code(s): Z01.419 - Encounter for gynecological examination (general) (routine) without abnormal findings Category: Medical Plan Discussed: Current recommendations for pap smears per ASCCP guidelines. Breast awareness and periodic breast exams. Maintain a healthy lifestyle including a well balanced diet, weight loss goals, and routine exercise. Mediterranean diet handout provided. Rx for vitamins sent in. Infertility services in area, contact information provided. Patient verbalizes understanding and agrees to the plan of care. She was given opportunity to ask questions and all questions were answered to the best of my ability. RTO in one year for annual obstetrics gyn physician examination. This note is constructed using voice recognition software. While every effort has been made to ensure accuracy, weight reducing technician errors may have been included. Orders: Orders CT NG by PCR Vag/Cerv Today B96.89 - Other specified bacterial agents as the cause of diseases classified elsewhere, N76.0 - Acute vaginitis, N89.8 - Other specified noninflammatory disorders of vagina Bacterial Vaginosis Panel Today N76.0 - Acute vaginitis Medications: New PNV,calcium 43-[id number]-gkent acid 27 mg iron- 1 mg ( Vitamins Plus Low Iron) 1 tab PO DAILY 90 tabs 4RF Coding Level of Care Code Est Pt Prev Care 18-39y(19471) Diagnoses Encounter for well woman exam with routine gynecological exam Z01.419
== END 2025-03-14 15:02 | disposition home or self-care (01) ==
LOC: HO.HWS 14:11
PROVIDERS: PCP Physician Assistant; Visit Provider Advanced Practice Midwife
DX: Z01.419 Encounter for gynecological examination (general) (routine) without abnormal findings (principal)
CPT/HCPCS: 99395; 99459

== ENCOUNTER 2025-03-14 14:11 | Outpatient (REF) | payer OTHER, SELFPAY ==
[2025-03-15 02:23] LABS: Bacterial Vaginosis PCR NEGATIVE (Negative); Candida Group PCR NOT DETECTED (Not Detect); Candida glab krusei PCR NOT DETECTED (Not Detect); Trichomonas vaginalis PCR NOT DETECTED (Not Detect)
[2025-03-15 02:53] LABS: CT PCR NOT DETECTED (Not Detect.); NG PCR NOT DETECTED (Not Detect.)
== END 2025-03-14 14:12 | disposition home or self-care (01) ==
LOC: HO.LNP 14:11
PROVIDERS: PCP Physician Assistant; Visit Provider Advanced Practice Midwife
DX: Z01.411 Encounter for gynecological examination (general) (routine) with abnormal findings (principal); N76.0 Acute vaginitis; B96.89 Other specified bacterial agents as the cause of diseases classified elsewhere; Z20.2 Contact with and (suspected) exposure to infections with a predominantly sexual mode of transmission
CPT/HCPCS: 81515; 87491; 87591